=== PATIENT | male | born 1940 | race African-American/Black ===

== ENCOUNTER 2017-05-28 18:53 | Emergency (ER) | payer MEDICARE, OTHER ==
[2017-05-28 19:00] VITALS: BP 128/70
--- NOTE | 2017-05-28 21:35 | ER Document Report ---
ED General - General Chief Complaint: Cold Symptoms Stated Complaint: RUNNY NOSE,COUGH,FEVER Time Seen by Provider: 05/28/17 21:17 Mode of Arrival: Ambulatory Information source: Patient Notes: This is a 76-year-old man with a history of CHF, hypertension who presents to the emergency room with 3 days history of cough, congestion, runny nose, fever and chills. TRAVEL OUTSIDE OF THE [place] IN LAST 30 DAYS: No - HPI Onset: Yesterday Onset/Duration: Gradual Quality of pain: No pain Severity: None Pain Level: Denies Associated symptoms: Nonproductive cough, Fever Exacerbated by: Denies Relieved by: Denies Similar symptoms previously: No Recently seen / treated by doctor: No - Related Data Allergies/Adverse Reactions: Shellfish * Allergy (Intermediate, Verified 05/28/17 18:55) Facial swelling Past Medical History - General Information source: Patient - Social History Smoking Status: Never Smoker Cigarette use (# per day): No Chew tobacco use (# tins/day): No Frequency of alcohol use: None Drug Abuse: None Lives with: Family Family History: None Patient has suicidal ideation: No Patient has homicidal ideation: No - Past Medical History Cardiac Medical History: Reports: Hx Atrial Fibrillation, Hx DVT, Hx Hypertension Denies: Hx Heart Attack Pulmonary Medical History: Reports: Hx Pneumonia Denies: Hx Asthma Neurological Medical History: Denies: Hx Cerebrovascular Accident, Hx Seizures Renal/ Medical History: Reports: Hx Benign Prostatic Hyperplasia. Denies: Hx Peritoneal Dialysis GI Medical History: Reports: Hx Gastroesophageal Reflux Disease. Denies: Hx Hepatitis, Hx Hiatal Hernia, Hx Ulcer Psychiatric Medical History: Denies: Hx Depression Infectious Medical History: Denies: Hx Hepatitis Past Surgical History: Reports: Hx Orthopedic Surgery. Denies: Hx Open Heart Surgery, Hx Pacemaker - Immunizations Hx Diphtheria, Pertussis, Tetanus Vaccination: No Review of Systems - Review of Systems Constitutional: Chills, Fever EENT: No symptoms reported Cardiovascular: No symptoms reported Respiratory: See HPI Gastrointestinal: No symptoms reported Genitourinary: No symptoms reported Male Genitourinary: No symptoms reported Musculoskeletal: No symptoms reported Skin: No symptoms reported Hematologic/Lymphatic: No symptoms reported Neurological/Psychological: No symptoms reported Physical Exam - Vital signs Vitals: Temp Pulse Resp BP Pulse Ox 98.3 F 92 16 128/70 H 96 05/28/17 18:59 05/28/17 18:59 05/28/17 18:59 05/28/17 18:59 05/28/17 18:59 Notes: Physical exam: GENERAL: 76-year-old man, well-appearing, no acute distress. HEAD: Atraumatic, normocephalic. EYES: Pupils equal round and reactive to light, extraocular movements intact, sclera anicteric, conjunctiva are normal. ENT: TMs normal, nares patent, oropharynx clear without exudates. Moist mucous membranes. NECK: Normal range of motion, supple without obvious mass or JVD. LUNGS: Breath sounds clear to auscultation bilaterally and equal. No wheezes rales or rhonchi. HEART: Regular rate and rhythm without murmurs, rubs or gallops. ABDOMEN: Soft, normoactive bowel sounds. No tenderness to palpation. No guarding, no rebound. No masses appreciated. EXTREMITIES: Normal range of motion, no pitting or edema. No clubbing or cyanosis. NEUROLOGICAL: Cranial nerves II through XII grossly intact. Normal speech, moving all extremities. PSYCH: Normal mood, normal affect. SKIN: Warm, Dry, normal turgor, no rashes or lesions noted. Course - Vital Signs Vital signs: Temp Pulse Resp BP Pulse Ox 98.3 F 92 16 128/70 H 96 05/28/17 18:59 05/28/17 18:59 05/28/17 18:59 05/28/17 18:59 05/28/17 18:59 - Diagnostic Test Radiology reviewed: Image reviewed, Reports reviewed - Chest x-ray shows no infiltrates or effusions. - EKG Interpretation by Me Rate: Normal Rhythm: A.Fib - EKG shows atrial fibrillation with a ventricular rate of 59, PVC , no acute change from previous Discharge - Discharge Clinical Impression: Influenza Condition: Stable Disposition: HOME, SELF-CARE Additional Instructions: As we discussed, your tests did show that you have influenza A. You were started on a medicine in the emergency room for this. I want you to continue this for the next 5 days. Your next dose of Tamiflu is after breakfast in the morning. And this medicine is taken twice daily. Your chest x-ray did not show any evidence of pneumonia. Your EKG looked the same as your baseline EKG which is good. The test of sugar came back normal. Follow-up with Dr. Dacosta. Return to the emergency room for any worsening shortness of breath, cough or any concerns or getting worse. Prescriptions: Oseltamivir Phosphate [Tamiflu 75 mg Capsule] 75 mg PO BID #9 capsule Referrals: ASHLEY DACOSTA MD [Primary Care Provider] - Follow up as needed
[2017-05-28 22:12] LABS: A TYPE INFLUENZA AG POSITIVE (NEGATIVE); B INFLUENZA AG NEGATIVE (NEGATIVE)
--- NOTE | 2017-05-28 22:35 | RADIOLOGY REPORT (SQ) ---
EXAM DESCRIPTION: CHEST PA/LAT COMPLETED DATE/TIME: 05/28/2017 10:12 pm REASON FOR STUDY: cough, fever COMPARISON: 04/09/2014. TECHNIQUE: Frontal and lateral radiographic views of the chest acquired. NUMBER OF VIEWS: Two view. LIMITATIONS: None. FINDINGS: LUNGS AND PLEURA: Chronic pleuroparenchymal changes, particularly on the right. Evidence of previous rib resections with pleural thickening which is nonprogressive. Mild additional pleural thickening on the left. No acute superimposed infiltrate or suspicious opacity. MEDIASTINUM AND HILAR STRUCTURES: No masses or contour abnormalities. HEART AND VASCULAR STRUCTURES: Heart normal size. No evidence for failure. BONES: No acute findings. HARDWARE: None in the chest. OTHER: No other significant finding. IMPRESSION: Chronic lung changes. No acute cardiopulmonary disease. TECHNICAL DOCUMENTATION: JOB ID: [id number] [employer]- All Rights Reserved
[2017-05-28] MEDS ORDERED: OSELTAMIVIR PHOSPHATE 75 MG CAPSULE PO ONE (23:10)
--- NOTE | 2017-05-29 08:08 | EKG REPORT ---
SEVERITY:- ABNORMAL ECG - ATRIAL FIBRILLATION, V-RATE 48-79 VENTRICULAR PREMATURE COMPLEX : Confirmed by: Troy Kenney MD 29-May-2017 08:07:43
== END 2017-05-28 23:48 | disposition home or self-care (01) ==
LOC: ER 18:53
DX: J10.1 Influenza due to other identified influenza virus with other respiratory manifestations (principal); I48.91 Unspecified atrial fibrillation; I10 Essential (primary) hypertension; Z86.718 Personal history of other venous thrombosis and embolism; Z91.013 Allergy to seafood
CPT/HCPCS: 93005; 99284; 82962; 87804; 71046; 93010; A9270; J3490

== ENCOUNTER 2017-09-21 12:50 | Inpatient (IN) | payer MEDICARE, OTHER, MEDICAID ==
[2017-09-21] MEDS ORDERED: ASPIRIN 81 MG TABLET, CHEWABLE PO ONE (13:03)
[2017-09-21] MEDS ORDERED: RIVAROXABAN 15 MG TABLET PO ONE (13:22)
--- NOTE | 2017-09-21 13:29 | ER Document Report ---
ED General - General Chief Complaint: Chest Pain Stated Complaint: CHEST PAIN Time Seen by Provider: 09/21/17 13:21 Mode of Arrival: Stretcher Information source: Patient Notes: Chief complaint: Chest pain since last Saturday that is 4 days ago. This morning had problem walking. History of complain:( obtained from-patient) 77 years old male with a history of atrial fibrillation, not on any anticoagulant, had chest pain since last Saturday that is 5 days ago, pain is on and off last for up a few minutes and then disappears. Today this morning he had problem walking staggering. Lasted for a while and then resolved. Therefore presented to the ED Currently denies any chest pain palpitation or diaphoresis. Denies any left arm numbness tingling sensation. Denies any focal weakness numbness tingling sensation. Denies any headache. Onset: As above last few days Severity: Mild to moderate Quality: Dull achy pain Context: Not related to anything Exacerbating factor and relieving factors: None REVIEW OF SYSTEMS: CONSTITUTIONAL : Denies fever, chills, or sweats. Denies recent illness. EENT: Denies eye, ear, throat, or mouth pain or symptoms. Denies nasal or sinus congestion or discharge. Denies throat, tongue, or mouth swelling or difficulty swallowing. CARDIOVASCULAR: Denies chest pain. Denies palpitations or racing or irregular heart beat. Denies ankle edema. RESPIRATORY: Denies cough, cold, or chest congestion. Denies shortness of breath, difficulty breathing, or wheezing. GASTROINTESTINAL: Denies distention. Denies nausea, vomiting, or diarrhea. Denies blood in vomitus, stools, or per rectum. Denies black, tarry stools. Denies constipation. GENITOURINARY: Denies difficulty urinating, painful urination, burning, frequency, blood in urine, or discharge. FEMALE GENITOURINARY: Denies vaginal bleeding, heavy or abnormal periods, irregular periods. Denies vaginal discharge or odor. MUSCULOSKELETAL: Denies back or neck pain or stiffness. Denies joint pain or swelling. SKIN: Denies rash, lesions or sores. HEMATOLOGIC : Denies easy bruising or bleeding. LYMPHATIC: Denies swollen, enlarged glands. NEUROLOGICAL: Denies confusion or altered mental status. Denies passing out or loss of consciousness. Denies dizziness or lightheadedness. Denies headache. Denies weakness or paralysis or loss of use of either side. Denies problems with gait or speech. Denies sensory loss, numbness, or tingling. Denies seizures. PSYCHIATRIC: Denies anxiety or stress. Denies depression, suicidal ideation, or homicidal ideation. ALL OTHER SYSTEMS REVIEWED AND NEGATIVE. PHYSICAL EXAMINATION: GENERAL: Well-appearing, well-nourished and in no acute distress. HEAD: Atraumatic, normocephalic. EYES: Pupils equal round and reactive to light, extraocular movements intact, conjunctiva are normal. ENT: Nares patent, oropharynx clear without exudates. Moist mucous membranes. NECK: Normal range of motion, supple without lymphadenopathy LUNGS: Breath sounds clear to auscultation bilaterally and equal. No wheezes rales or rhonchi. HEART: Regular rate and rhythm without murmurs ABDOMEN: Soft, nontender, nondistended abdomen. No guarding, no rebound. No masses appreciated. Examination of genitals-deferred Musculoskeletal: Normal range of motion, no pitting or edema. No cyanosis. NEUROLOGICAL: Cranial nerves grossly intact. Normal speech, normal gait. Normal sensory, motor exams. No pronator drift no focal neurological deficit noted. PSYCH: Normal mood, normal affect. SKIN: Warm, Dry, normal turgor, no rashes or lesions noted. Dictation was performed using [employer] voice recognition software TRAVEL OUTSIDE OF THE [place] IN LAST 30 DAYS: No - HPI Patient complains to provider of: Dictated Onset: Just prior to arrival Associated symptoms: denies: None, Allergy/hay fever, Body/muscle aches, Chest pain, Chills, Nonproductive cough, Productive cough, Diarrhea, Drooling, Earache , Fever, Headache, Hoarseness, Hurts to breath, Leg swelling, Nausea, Vomiting, Rhinnorhea, Sinus pain/drainage, Shortness of breath, Slow to respond, Sore throat, Sweating, Weakness, Other - Related Data Allergies/Adverse Reactions: Shellfish * Allergy (Intermediate, Verified 05/28/17 18:55) Facial swelling Past Medical History - General Information source: Patient - Social History Smoking Status: Unknown if Ever Smoked Cigarette use (# per day): No Chew tobacco use (# tins/day): No Smoking Education Provided: No Frequency of alcohol use: None Lives with: Family Family History: None, Reviewed & Not Pertinent - Bacitracin - Past Medical History Cardiac Medical History: Reports: Hx Atrial Fibrillation, Hx DVT, Hx Hypertension Denies: Hx Heart Attack Pulmonary Medical History: Reports: Hx Pneumonia Denies: Hx Asthma Neurological Medical History: Denies: Hx Cerebrovascular Accident, Hx Seizures Renal/ Medical History: Reports: Hx Benign Prostatic Hyperplasia. Denies: Hx Peritoneal Dialysis GI Medical History: Reports: Hx Gastroesophageal Reflux Disease. Denies: Hx Hepatitis, Hx Hiatal Hernia, Hx Ulcer Psychiatric Medical History: Denies: Hx Depression Infectious Medical History: Denies: Hx Hepatitis Past Surgical History: Reports: Hx Orthopedic Surgery. Denies: Hx Open Heart Surgery, Hx Pacemaker - Immunizations Hx Diphtheria, Pertussis, Tetanus Vaccination: No Review of Systems - Review of Systems Notes: Dictated Physical Exam - Vital signs Vitals: Pulse Ox 95 09/21/17 13:03 - Notes Notes: Dictated Course - Re-evaluation Re-evalutation: 09/21/17 15:51 Case was discussed with the primary care physician and currently being admitted - Vital Signs Vital signs: Temp Pulse Resp BP Pulse Ox 97.2 F 59 L 18 136/65 H 100 09/22/17 07:15 09/22/17 07:15 09/22/17 07:15 09/22/17 07:15 09/22/17 07:15 - Laboratory Result Diagrams: 09/22/17 04:10 09/22/17 04:10 Laboratory results interpreted by me: 09/21/17 09/21/17 09/21/17 13:03 13:13 13:13 WBC 10.9 H RBC 5.79 H RDW 14.6 H Seg Neutrophils % 78.4 H Absolute Neutrophils 8.6 H Calcium 10.9 H NT-Pro-B Natriuret Pep 1050 H - Diagnostic Test Radiology reviewed: Reports reviewed - Chronic pleural thickening Discharge - Discharge Clinical Impression: Chest pain, rule out acute myocardial infarction, Acute electrocardiogram changes Atrial fibrillation Qualifiers: Atrial fibrillation type: chronic Qualified Code(s): I48.2 - Chronic atrial fibrillation Condition: Fair Disposition: ADMITTED INPATIENT Admitting Provider: Guido Unit Admitted: [facility]
[2017-09-21 14:00] LABS: ALANINE AMINOTRANSFERASE 24 U/L (21-72); ALBUMIN 4.3 g/dL (3.5-5.0); ALKALINE PHOSPHATASE 67 U/L (38-126); ANION GAP 12 (5-19); ASPARTATE AMINO TRANSFERASE 23 U/L (17-59); BILIRUBIN,DIRECT 0.4 mg/dL (0.0-0.4); BILIRUBIN,TOTAL 0.9 mg/dL (0.2-1.3); BLOOD UREA NITROGEN 17 mg/dL (7-20); CALCIUM 10.9 mg/dL (8.4-10.2); CARBON DIOXIDE 27 mmol/L (22-30); CHLORIDE 102 mmol/L (98-107); GLUCOSE 94 mg/dL (75-110); POTASSIUM 4.3 mmol/L (3.6-5.0); SODIUM 140.8 mmol/L (137-145); TOTAL PROTEIN 7.4 g/dL (6.3-8.2)
[2017-09-21 14:14] LABS: TROPONIN I 0.013 ng/mL
[2017-09-21 14:18] LABS: ABSOLUTE BASOPHILS # (AUTO) 0.1 10^3/uL (0.0-0.2); ABSOLUTE EOSINOPHILS # (AUTO) 0.1 10^3/uL (0.0-0.6); ABSOLUTE LYMPHOCYTES (AUTO) 1.5 10^3/uL (0.5-4.7); ABSOLUTE MONOCYTES (AUTO) 0.8 10^3/uL (0.1-1.4); ABSOLUTE NEUT (AUTO) 8.6 10^3/uL (1.7-8.2); BASOPHILS % (AUTO) 0.6 % (0-2); EOSINOPHILS % (AUTO) 0.5 % (0-6); HEMATOCRIT 50.6 % (37.9-51.0); HEMOGLOBIN 16.8 g/dL (13.5-17.0); LYMPHOCYTES % (AUTO) 13.3 % (13-45); MEAN CORPUSCULAR HGB CONC 33.2 g/dL (32.0-36.0); MEAN CORPUSCULAR VOLUME 87 fl (80-97); MONOCYTES % (AUTO) 7.2 % (3-13); PLATELET COUNT 218 10^3/uL (150-450); RED BLOOD COUNT 5.79 10^6/uL (4.35-5.55); RED CELL DISTRIBUTION WIDTH 14.6 % (11.5-14.0); SEGMENTED NEUTROPHILS % (AUTO) 78.4 % (42-78); TOTAL CELLS COUNTED % (AUTO) 100 %; WHITE BLOOD COUNT 10.9 10^3/uL (4.0-10.5)
--- NOTE | 2017-09-21 14:27 | RADIOLOGY REPORT (SQ) ---
EXAM DESCRIPTION: CHEST SINGLE VIEW COMPLETED DATE/TIME: 09/21/2017 2:05 pm REASON FOR STUDY: CP COMPARISON: None. EXAM PARAMETERS: NUMBER OF VIEWS: One view. TECHNIQUE: Single frontal radiographic view of the chest acquired. RADIATION DOSE: NA LIMITATIONS: None. FINDINGS: LUNGS AND PLEURA: Chronic bibasilar scarring and pleural thickening. MEDIASTINUM AND HILAR STRUCTURES: No masses. Contour normal. HEART AND VASCULAR STRUCTURES: The heart is normal in size with aortic atherosclerosis. . BONES: Previous resection of right posterior 5th and 7th ribs. HARDWARE: None in the chest. OTHER: Chest leads in place. IMPRESSION: Chronic bibasilar scarring and pleural thickening. Post thoracotomy changes on the righ t. . TECHNICAL DOCUMENTATION: JOB ID: [id number] 2010 [employer]- All Rights Reserved Reading location - IP/workstation name: [email or web address]
--- NOTE | 2017-09-21 16:35 | EKG REPORT ---
SEVERITY:- ABNORMAL ECG - ATRIAL FIBRILLATION, V-RATE 62-101 PROBABLE LVH WITH SECONDARY REPOL ABNRM : Confirmed by: Troy Kenney MD 21-Sep-2017 16:33:40
[2017-09-21] MEDS ORDERED: FUROSEMIDE INJ/PF 20 MG/2 ML SDV IV ONE (20:40)
--- NOTE | 2017-09-21 20:40 | PDOC H&P ---
History of Present Illness Admission Date/PCP: 09/21/17 16:09 [facility] Patient complains of: Chest pain, Difficulty with breathing History of Present Illness: ARELIS Charlee BAUTISTA is a 77 year old male known to my practice presented to the ED with 5 days history of intermittent chest pain and exertional shortness of breath that lasted for couple of minutes and resolved with rest. He denied any palpitation, diaphoresis or radiation of pain into his neck or upper extremities. There was not numbness or tingling. He reported compliance with his medication but claimed that his symptoms started after recent addition of Duloxetine to his chronic pain management regimen. He denied any focal weakness but reported short period of staggering gait earlier today. He denied any headache or dizziness. His initial evaluation in the ED was remarkable for elevated NT-Pro BNP and Atrial fibrillation on his EKG. Patient has history of Atrial Fibrillation and has been mainly on Aspirin therapy due to episode of GI bleed while on Coumadin and Xarelto in the past. He denied any recurrent GI bleed for couple of years. 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 Past Medical History Cardiac Medical History: Reports: Atrial Fibrillation, DVT, Hypertension Denies: Myocardial Infarction Pulmonary Medical History: Reports: Pneumonia Denies: Asthma Neurological Medical History: Denies: Seizures GI Medical History: Reports: Gastroesophageal Reflux Disease Denies: Hepatitis, Hiatal Hernia Psychiatric Medical History: Denies: Depression Hematology: Denies: Anemia, Sickle Cell Disease Past Surgical History Past Surgical History: Reports: Orthopedic Surgery Denies: Pacemaker Social History Lives with: Family Smoking Status: Unknown if Ever Smoked Frequency of Alcohol Use: None Hx Recreational Drug Use: No Drugs: None Hx Prescription Drug Abuse: No - Advance Directive Resuscitation Status: Full Code Family History Family History: None, Reviewed & Not Pertinent - Bacitracin Parental Family History Reviewed: Yes Children Family History Reviewed: Yes Sibling(s) Family History Reviewed.: Yes Medication/Allergy Home Medications: Digoxin [Lanoxin 0.25 mg Tablet] 0.25 mg PO DAILY 03/06/12 Diltiazem HCl [Cardizem Cd] 240 mg PO DAILY 03/06/12 Finasteride [Proscar 5 mg Tablet] 5 mg PO DAILY 11/08/12 Gabapentin 600 mg PO Q8H 02/01/14 Tamsulosin HCl [Flomax 0.4 mg Cap.sr] 0.4 mg PO PCSUPPER #30 cap.sr.24h Aspirin [Aspirin 81 mg Chewable Tablet] 1 tab PO DAILY 09/21/17 Duloxetine HCl 60 mg PO DAILY 09/21/17 Lisinopril 10 mg PO DAILY 09/21/17 Allergies/Adverse Reactions: Shellfish * Allergy (Intermediate, Verified 05/28/17 18:55) Facial swelling Review of Systems Constitutional: ABSENT: chills, fever(s), headache(s), weight gain, weight loss Eyes: ABSENT: visual disturbances Ears: ABSENT: hearing changes Nose, Mouth, and Throat: ABSENT: as per HPI, headache(s), mouth pain, sore throat, vertigo, other Cardiovascular: PRESENT: chest pain, dyspnea on exertion. ABSENT: as per HPI, edema, orthropnea, palpitations, other Respiratory: PRESENT: dyspnea. ABSENT: as per HPI, cough, hemoptysis, sputum, other Gastrointestinal: ABSENT: abdominal pain, constipation, diarrhea, hematemesis, hematochezia, nausea, vomiting Genitourinary: ABSENT: dysuria, hematuria Musculoskeletal: PRESENT: deformity - related to joint involvment with arthritis Neurological: ABSENT: abnormal gait, abnormal speech, confusion, dizziness, focal weakness, syncope Psychiatric: ABSENT: anxiety, depression, homidical ideation, suicidal ideation Endocrine: ABSENT: cold intolerance, heat intolerance, polydipsia, polyuria Hematologic/Lymphatic: ABSENT: easy bleeding, easy bruising, lymphadenopathy Allergic/Immunologic: ABSENT: seasonal rhinorrhea Physical Exam Vital Signs: Temp Pulse Resp BP Pulse Ox 97.5 F 69 19 124/71 100 09/21/17 18:12 09/21/17 18:37 09/21/17 18:12 09/21/17 18:12 09/21/17 18:12 Intake & Output 09/20/17 09/21/17 09/22/17 06:59 06:59 06:59 Weight 83.4 kg General appearance: PRESENT: no acute distress, well-developed, well-nourished Head exam: PRESENT: atraumatic, normocephalic Eye exam: PRESENT: conjunctiva pink, EOMI, PERRLA. ABSENT: scleral icterus Mouth exam: PRESENT: moist Neck exam: PRESENT: full ROM. ABSENT: carotid bruit, JVD, lymphadenopathy, thyromegaly Respiratory exam: PRESENT: decreased breath sounds - lower lung zone Cardiovascular exam: PRESENT: RRR. ABSENT: diastolic murmur, rubs, systolic murmur Pulses: PRESENT: +1 pedal pulses bilateral Vascular exam: PRESENT: normal capillary refill. ABSENT: pallor GI/Abdominal exam: PRESENT: normal bowel sounds, soft. ABSENT: distended, guarding, mass, organolmegaly, rebound, tenderness Rectal exam: PRESENT: deferred Extremities exam: ABSENT: pedal edema Musculoskeletal exam: PRESENT: ambulatory, deformity - related to his prior surgery on right leg and joint involvement with arthritis Neurological exam: PRESENT: alert, awake, oriented to person, oriented to place , oriented to time, oriented to situation, CN II-XII grossly intact. ABSENT: motor sensory deficit Psychiatric exam: PRESENT: appropriate affect, normal mood. ABSENT: homicidal ideation, suicidal ideation Skin exam: PRESENT: dry, intact, warm. ABSENT: cyanosis, rash Results Laboratory Results: 09/21/17 17:13 Troponin I 0.016 Impressions: Chest X-Ray 09/21/17 13:03 IMPRESSION: Chronic bibasilar scarring and pleural thickening. Post thoracotomy changes on the right. . Assessment & Plan - Time Time Spent: 50 to 70 Minutes Medications reviewed and adjusted accordingly: Yes Anticipated discharge: Home Within: Other - Inpatient Certification Based on my medical assessment, after consideration of the patient's comorbidities, presenting symptoms, or acuity I expect that the services needed warrant INPATIENT care.: Yes I certify that my determination is in accordance with my understanding of Medicare's requirements for reasonable and necessary INPATIENT services [42 CFR 412.3e].: Yes Medical Necessity: Need Close Monitoring Due to Risk of Patient Decompensation, Need For Continuous Telemetry Monitoring, Risk of Complication if Not Cared For in Hospital Post Hospital Care: D/C Hvac/R Instructor Documentation - Plan Summary Plan Summary: See admitting attending physician orders.
[2017-09-21] MEDS: GABAPENTIN 300 MG CAPSULE PO SCH (21:05)
[2017-09-21 23:43] LABS: INTERNATIONAL RATION (INR) 1.54; PROTHROMBIN TIME 19.2 SEC (11.4-15.4)
[2017-09-22 00:19] LABS: CREATINE KINASE MB 3.18 ng/mL (<4.55)
[2017-09-22 00:23] LABS: TROPONIN I 0.021 ng/mL
[2017-09-22 04:50] LABS: ABSOLUTE BASOPHILS # (AUTO) 0.1 10^3/uL (0.0-0.2); ABSOLUTE EOSINOPHILS # (AUTO) 0.1 10^3/uL (0.0-0.6); ABSOLUTE LYMPHOCYTES (AUTO) 2.2 10^3/uL (0.5-4.7); ABSOLUTE MONOCYTES (AUTO) 1.3 10^3/uL (0.1-1.4); ABSOLUTE NEUT (AUTO) 8.2 10^3/uL (1.7-8.2); BASOPHILS % (AUTO) 0.7 % (0-2); EOSINOPHILS % (AUTO) 1.2 % (0-6); HEMATOCRIT 46.5 % (37.9-51.0); HEMOGLOBIN 15.5 g/dL (13.5-17.0); LYMPHOCYTES % (AUTO) 18.6 % (13-45); MEAN CORPUSCULAR HEMOGLOBIN 29.2 pg (27.0-33.4); MEAN CORPUSCULAR HGB CONC 33.3 g/dL (32.0-36.0); MEAN CORPUSCULAR VOLUME 88 fl (80-97); MONOCYTES % (AUTO) 10.8 % (3-13); PLATELET COUNT 211 10^3/uL (150-450); RED BLOOD COUNT 5.32 10^6/uL (4.35-5.55); RED CELL DISTRIBUTION WIDTH 14.1 % (11.5-14.0); SEGMENTED NEUTROPHILS % (AUTO) 68.7 % (42-78); TOTAL CELLS COUNTED % (AUTO) 100 %
[2017-09-22 05:16] LABS: CREATINE KINASE MB 2.96 ng/mL (<4.55); TROPONIN I 0.024 ng/mL
[2017-09-22] MEDS: GABAPENTIN 300 MG CAPSULE PO SCH ×3 (05:35→22:42)
[2017-09-22] MEDS: LANSOPRAZOLE 30 MG TAB.RAP.DR PO SCH (05:35)
[2017-09-22 07:46] LABS: ALANINE AMINOTRANSFERASE 22 U/L (21-72); ALBUMIN 3.8 g/dL (3.5-5.0); ALKALINE PHOSPHATASE 57 U/L (38-126); ANION GAP 14 (5-19); ASPARTATE AMINO TRANSFERASE 25 U/L (17-59); BILIRUBIN,DIRECT 0.4 mg/dL (0.0-0.4); BILIRUBIN,TOTAL 0.4 mg/dL (0.2-1.3); BLOOD UREA NITROGEN 21 mg/dL (7-20); CALCIUM 10.5 mg/dL (8.4-10.2); CARBON DIOXIDE 27 mmol/L (22-30); CHLORIDE 105 mmol/L (98-107); CHOLESTEROL 173.98 mg/dL (0-200); CREATINE KINASE 49 U/L (55-170); GLUCOSE 87 mg/dL (75-110); POTASSIUM 3.9 mmol/L (3.6-5.0); SODIUM 145.6 mmol/L (137-145); TOTAL PROTEIN 6.9 g/dL (6.3-8.2); TRIGLYCERIDES 86 mg/dL (<150)
[2017-09-22 08:02] LABS: DIRECT LDL 121 mg/dL (<100)
[2017-09-22] MEDS: FINASTERIDE 5 MG TABLET PO SCH (09:19)
[2017-09-22] MEDS: LISINOPRIL 10 MG TABLET PO SCH (09:19)
[2017-09-22] MEDS: DIGOXIN 0.25 MG TABLET PO SCH (09:19)
[2017-09-22] MEDS ORDERED: DILTIAZEM HCL 240 MG CAPSULE.CR PO SCH (10:00)
[2017-09-22] MEDS ORDERED: FUROSEMIDE INJ/PF 20 MG/2 ML SDV IV SCH (10:00)
[2017-09-22 11:04] LABS: CREATINE KINASE MB 2.58 ng/mL (<4.55); TROPONIN I 0.016 ng/mL
[2017-09-22] MEDS: TAMSULOSIN HCL 0.4 MG CAP.SR.24H PO SCH (16:43)
[2017-09-22] MEDS: RIVAROXABAN 10 MG TABLET PO SCH (16:43)
--- NOTE | 2017-09-22 18:51 | PDOC PROGRESS REPORT ---
Subjective Progress Note for:: 09/22/17 Subjective:: Patient reported episode of postural dizziness. Nursing staff reported associated bradycardia. No chest pain. No nausea, vomiting or abdominal pain. No abnormal bleeding. Reason For Visit: CHEST PAIN,R/O ACS,ACUTE SYSTOLIC CHF, Physical Exam Vital Signs: Temp Pulse Resp BP Pulse Ox 97.5 F 52 L 17 122/60 99 09/22/17 15:14 09/22/17 15:14 09/22/17 15:14 09/22/17 15:14 09/22/17 15:14 Intake & Output 09/21/17 09/22/17 09/23/17 06:59 06:59 06:59 Intake Total 155 446 Output Total 250 200 Balance -95 246 Weight 83.9 kg General appearance: PRESENT: no acute distress, well-developed, well-nourished Head exam: PRESENT: atraumatic, normocephalic Mouth exam: PRESENT: moist Neck exam: PRESENT: full ROM. ABSENT: carotid bruit, JVD, lymphadenopathy, thyromegaly Respiratory exam: PRESENT: clear to auscultation etta Cardiovascular exam: PRESENT: irregular rhythm, +S1, +S2. ABSENT: diastolic murmur, systolic murmur Vascular exam: PRESENT: normal capillary refill. ABSENT: pallor GI/Abdominal exam: PRESENT: normal bowel sounds, soft. ABSENT: distended, guarding, mass, organolmegaly, rebound, tenderness Extremities exam: ABSENT: pedal edema Musculoskeletal exam: PRESENT: deformity - related to multiple joints involvement with arthritis Neurological exam: PRESENT: alert, awake, oriented to person, oriented to place , oriented to time, oriented to situation, CN II-XII grossly intact. ABSENT: motor sensory deficit Psychiatric exam: PRESENT: appropriate affect, normal mood. ABSENT: homicidal ideation, suicidal ideation Skin exam: PRESENT: dry, warm Results Laboratory Results: 09/22/17 04:10 09/22/17 04:10 09/22/17 09/22/17 04:10 04:10 WBC 12.0 H RBC 5.32 Hgb 15.5 Hct 46.5 MCV 88 MCH 29.2 MCHC 33.3 RDW 14.1 H Plt Count 211 Seg Neutrophils % 68.7 Lymphocytes % 18.6 Monocytes % 10.8 Eosinophils % 1.2 Basophils % 0.7 Absolute Neutrophils 8.2 Absolute Lymphocytes 2.2 Absolute Monocytes 1.3 Absolute Eosinophils 0.1 Absolute Basophils 0.1 Sodium 145.6 H Potassium 3.9 Chloride 105 Carbon Dioxide 27 Anion Gap 14 BUN 21 H Creatinine 1.00 Est GFR ( Amer) > 60 Est GFR (Non-Af Amer) > 60 Glucose 87 Calcium 10.5 H Total Bilirubin 0.4 AST 25 ALT 22 Alkaline Phosphatase 57 Total Protein 6.9 Albumin 3.8 Triglycerides 86 Cholesterol 173.98 LDL Cholesterol Direct 121 H VLDL Cholesterol 17.0 HDL Cholesterol 33 L 09/21/17 09/21/17 09/21/17 17:13 17:13 17:13 Creatine Kinase 42 L CK-MB (CK-2) 2.33 Troponin I 0.016 Cancelled 09/21/17 09/21/17 09/22/17 23:20 23:20 04:10 Creatine Kinase 43 L 48 L CK-MB (CK-2) 3.18 Troponin I 0.021 09/22/17 09/22/17 09/22/17 04:10 04:10 10:26 Creatine Kinase 49 L CK-MB (CK-2) 2.96 2.58 Troponin I 0.024 0.016 Impressions: Chest X-Ray 09/21/17 13:03 IMPRESSION: Chronic bibasilar scarring and pleural thickening. Post thoracotomy changes on the right. . Assessment & Plan - Diagnosis (5) HLD (hyperlipidemia) Qualifiers: Hyperlipidemia type: pure hypercholesterolemia Qualified Code(s): E78.00 - Pure hypercholesterolemia, unspecified; E78.0 - Pure hypercholesterolemia Is this a current diagnosis for this admission?: Yes Plan: See attending physician orders. - Time Time Spent with patient: 25-34 minutes Medications reviewed and adjusted accordingly: Yes Anticipated discharge: Home with Homehealth Within: Other - Inpatient Certification Based on my medical assessment, after consideration of the patient's comorbidities, presenting symptoms, or acuity I expect that the services needed warrant INPATIENT care.: Yes I certify that my determination is in accordance with my understanding of Medicare's requirements for reasonable and necessary INPATIENT services [42 CFR 412.3e].: Yes Medical Necessity: Need Close Monitoring Due to Risk of Patient Decompensation, Need For Continuous Telemetry Monitoring, Risk of Complication if Not Cared For in Hospital 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 Decrease Diltiazem to 180 mg p.o daily. Continue all other current medication management. Follow up on pending echocardiogram.
[2017-09-22] MEDS: SIMVASTATIN 10 MG TABLET PO SCH (22:42)
[2017-09-23] MEDS: LANSOPRAZOLE 30 MG TAB.RAP.DR PO SCH (05:39)
[2017-09-23] MEDS: GABAPENTIN 300 MG CAPSULE PO SCH ×3 (05:39→21:50)
[2017-09-23] MEDS: DILTIAZEM HCL 180 MG CAPSULE.CR PO SCH (09:27)
[2017-09-23] MEDS: DIGOXIN 0.25 MG TABLET PO SCH (09:33)
[2017-09-23] MEDS: FINASTERIDE 5 MG TABLET PO SCH (09:33)
[2017-09-23] MEDS: LISINOPRIL 10 MG TABLET PO SCH (09:34)
[2017-09-23] MEDS: RIVAROXABAN 10 MG TABLET PO SCH (17:01)
[2017-09-23] MEDS: TAMSULOSIN HCL 0.4 MG CAP.SR.24H PO SCH (17:01)
--- NOTE | 2017-09-23 17:32 | PDOC PROGRESS REPORT ---
Subjective Progress Note for:: 09/23/17 Subjective:: No chest pain or difficulty with breathing. No nausea, vomiting or abdominal pain. No abnormal bleeding. Nursing staff reported decreased urine output so far today. Reason For Visit: CHEST PAIN,R/O ACS,ACUTE SYSTOLIC CHF, Physical Exam Vital Signs: Temp Pulse Resp BP Pulse Ox 97.4 F 83 18 103/49 L 98 09/23/17 11:16 09/23/17 14:00 09/23/17 11:16 09/23/17 11:16 09/23/17 11:16 Intake & Output 09/22/17 09/23/17 09/24/17 06:59 06:59 06:59 Intake Total 155 866 Output Total 250 200 Balance -95 666 Weight 83.9 kg 84.6 kg Physical Exam: General appearance: PRESENT: no acute distress, well-developed, well-nourished Head exam: PRESENT: atraumatic, normocephalic Mouth exam: PRESENT: moist Neck exam: PRESENT: full ROM. ABSENT: carotid bruit, JVD, lymphadenopathy, thyromegaly Respiratory exam: PRESENT: clear to auscultation etta Cardiovascular exam: PRESENT: irregular rhythm, +S1, +S2. ABSENT: diastolic murmur, systolic murmur Vascular exam: PRESENT: normal capillary refill. ABSENT: pallor GI/Abdominal exam: PRESENT: normal bowel sounds, soft. ABSENT: distended, guarding, mass, organomegaly, rebound, tenderness Extremities exam: ABSENT: pedal edema Musculoskeletal exam: PRESENT: deformity - related to multiple joints involvement with arthritis Neurological exam: PRESENT: alert, awake, oriented to person, oriented to place , oriented to time, oriented to situation, CN II-XII grossly intact. ABSENT: motor sensory deficit Psychiatric exam: PRESENT: appropriate affect, normal mood. ABSENT: homicidal ideation, suicidal ideation Skin exam: PRESENT: dry, warm Results Laboratory Results: 09/22/17 04:10 09/22/17 04:10 09/21/17 09/21/17 09/21/17 17:13 17:13 17:13 Creatine Kinase 42 L CK-MB (CK-2) 2.33 Troponin I 0.016 Cancelled 09/21/17 09/21/17 09/22/17 23:20 23:20 04:10 Creatine Kinase 43 L 48 L CK-MB (CK-2) 3.18 Troponin I 0.021 09/22/17 09/22/17 09/22/17 04:10 04:10 10:26 Creatine Kinase 49 L CK-MB (CK-2) 2.96 2.58 Troponin I 0.024 0.016 Impressions: Chest X-Ray 09/21/17 13:03 IMPRESSION: Chronic bibasilar scarring and pleural thickening. Post thoracotomy changes on the right. . Assessment & Plan - Diagnosis (5) HLD (hyperlipidemia) Qualifiers: Hyperlipidemia type: pure hypercholesterolemia Qualified Code(s): E78.00 - Pure hypercholesterolemia, unspecified; E78.0 - Pure hypercholesterolemia Is this a current diagnosis for this admission?: Yes - Time Time Spent with patient: 25-34 minutes Medications reviewed and adjusted accordingly: Yes Anticipated discharge: Home Within: Other - Inpatient Certification Based on my medical assessment, after consideration of the patient's comorbidities, presenting symptoms, or acuity I expect that the services needed warrant INPATIENT care.: Yes I certify that my determination is in accordance with my understanding of Medicare's requirements for reasonable and necessary INPATIENT services [42 CFR 412.3e].: Yes Medical Necessity: Need Close Monitoring Due to Risk of Patient Decompensation, Need For Continuous Telemetry Monitoring, Risk of Complication if Not Cared For in Hospital 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 Echocardiogram suggested LVEF > 60% with moderate diastolic dysfunction. Continue all current medication management. Follow up on official echo report. Obtain bladder scan in view of his history of BPH to r/o retention problem.
--- NOTE | 2017-09-23 18:52 | XCELERA REPORT ---
[address] [place] [address] Transthoracic Echocardiogram Report Name: ARELIS BAUTISTA Age: 77 yrs Gender: Male : 1940 Patient Status: Inpatient Patient Location: [address] [place] [address] Study Date: 09/23/2017 11:47 AM Height: 74 in Weight: 184 lb BSA: 2.1 m2 Procedure: A two-dimensional transthoracic echocardiogram with color flow and Doppler was performed. Study Quality: Good. Reason For Study: chest pain, SOB, Elevated NT-Pro BNP History: chest pain, SOB, Elevated NT-Pro BNP. Ordering Physician: ASHLEY DACOSTA Performed By: Romaine Turk Interpretation Summary The left ventricle is normal in size. There is normal left ventricular wall thickness. LV EF is > than 65% Left ventricular systolic function is normal. The left ventricular wall motion is normal. There is no thrombus. There is no ventricular septal defect visualized. The right ventricle is grossly normal size. The right ventricle is not well visualized secondary to technical limitations The left atrial size is normal. The right atrium is normal. The interatrial septum is intact with no evidence for an atrial septal defect. There is no evidence of mitral valve prolapse. There is no vegetation seen on the mitral valve. There is no mitral valve stenosis. There is no mitral regurgitation noted. There is no aortic valve stenosis There is no LVOT obstruction. No aortic regurgitation is present. There is no tricuspid stenosis. There is a moderate amount of tricuspid regurgitation RVSP is 27 to 32 mm of Hg , with RA mean of 5 to 10.Hence no significant pulmonary hypertension. There is no pulmonic valvular stenosis. There is a trace amount of pulmonic regurgitation The aortic root is normal size. The inferior vena cava appeared normal and decreased > 50% with respiration (RAP 5-10 mmHg) There is no pericardial effusion. MMode/2D Measurements & Calculations RVDd: 3.2 cm LVIDd: 3.9 cm FS: 44.6 % Ao root diam: 3.3 cm IVSd: 1.0 cm LVIDs: 2.2 cm EDV(Teich): 65.2 ml LVPWd: 0.98 cm ESV(Teich): 15.3 ml Ao root area: 8.6 cm2 EF(Teich): 76.5 % LA dimension: 4.0 cm Doppler Measurements & Calculations MV E max rosita: MV P1/2t max rosita: Ao V2 max: LV V1 max P.5 cm/sec 81.5 cm/sec 126.0 cm/sec 4.7 mmHg MV P1/2t: 77.0 msec Ao max PG: LV V1 max: 6.3 mmHg 108.3 cm/sec MVA(P1/2t): 2.9 cm2 MV dec slope: 310.0 cm/sec2 MV dec time: 0.24 sec PA V2 max: PI end-d rosita: TR max rosita: 67.1 cm/sec 69.4 cm/sec 235.4 cm/sec PA max PG: TR max P.8 mmHg 22.2 mmHg Left Ventricle The left ventricle is normal in size. There is normal left ventricular wall thickness. LV EF is > than 65%. Left ventricular systolic function is normal. LV diastolic function could not be adequately assessed due to atrial fibrilation. The left ventricular wall motion is normal. There is no thrombus. There is no ventricular septal defect visualized. Right Ventricle The right ventricle is grossly normal size. The right ventricle is not well visualized secondary to technical limitations. Atria The right atrium is normal. The left atrial size is normal. The interatrial septum is intact with no evidence for an atrial septal defect. Mitral Valve There is no evidence of mitral valve prolapse. There is no vegetation seen on the mitral valve. There is no mitral valve stenosis. There is no mitral regurgitation noted. Aortic Valve The aortic valve is trileaflet. The aortic valve opens well. There is no aortic valvular vegetation. There is no aortic valve stenosis. There is no LVOT obstruction. No aortic regurgitation is present. Tricuspid Valve There is no tricuspid stenosis. There is a moderate amount of tricuspid regurgitation. RVSP is 27 to 32 mm of Hg , with RA mean of 5 to 10.Hence no significant pulmonary hypertension. Pulmonic Valve There is no pulmonic valvular stenosis. There is a trace amount of pulmonic regurgitation. Great Vessels The aortic root is normal size. The inferior vena cava appeared normal and decreased > 50% with respiration (RAP 5-10 mmHg). Effusions There is no pericardial effusion. : ASHLEY DACOSTA > Citlali Almonte
[2017-09-23] MEDS: SIMVASTATIN 10 MG TABLET PO SCH (21:50)
[2017-09-24] MEDS: GABAPENTIN 300 MG CAPSULE PO SCH ×3 (06:18→21:35)
[2017-09-24] MEDS: LANSOPRAZOLE 30 MG TAB.RAP.DR PO SCH (06:18)
[2017-09-24] MEDS: DILTIAZEM HCL 180 MG CAPSULE.CR PO SCH (09:05)
[2017-09-24] MEDS: DIGOXIN 0.25 MG TABLET PO SCH (09:05)
[2017-09-24] MEDS: LISINOPRIL 10 MG TABLET PO SCH (09:06)
[2017-09-24] MEDS: FINASTERIDE 5 MG TABLET PO SCH (09:06)
[2017-09-24] MEDS: RIVAROXABAN 10 MG TABLET PO SCH (17:11)
[2017-09-24] MEDS: TAMSULOSIN HCL 0.4 MG CAP.SR.24H PO SCH (17:20)
--- NOTE | 2017-09-24 19:44 | PDOC PROGRESS REPORT ---
Subjective Progress Note for:: 09/24/17 Subjective:: No chest pain or difficulty with breathing. No nausea, vomiting or abdominal pain. No abnormal bleeding. Reason For Visit: CHEST PAIN,R/O ACS,ACUTE SYSTOLIC CHF, Physical Exam Vital Signs: Temp Pulse Resp BP Pulse Ox 98.3 F 68 18 112/53 L 99 09/24/17 16:58 09/24/17 16:58 09/24/17 16:58 09/24/17 16:58 09/24/17 16:58 Intake & Output 09/23/17 09/24/17 09/25/17 06:59 06:59 06:59 Intake Total 866 1028 758 Output Total 200 750 575 Balance 666 278 183 Weight 84.6 kg 85.7 kg Physical Exam: General appearance: PRESENT: no acute distress, well-developed, well-nourished Head exam: PRESENT: atraumatic, normocephalic Mouth exam: PRESENT: moist Neck exam: PRESENT: full ROM. ABSENT: carotid bruit, JVD, lymphadenopathy, thyromegaly Respiratory exam: PRESENT: clear to auscultation etta Cardiovascular exam: PRESENT: irregular rhythm, +S1, +S2. ABSENT: diastolic murmur, systolic murmur Vascular exam: ABSENT: pallor GI/Abdominal exam: PRESENT: normal bowel sounds, soft. ABSENT: distended, guarding, mass, organomegaly, rebound, tenderness Extremities exam: ABSENT: pedal edema Musculoskeletal exam: PRESENT: deformity - related to multiple joints involvement with arthritis Neurological exam: PRESENT: alert, awake, oriented to person, oriented to place , oriented to time, oriented to situation, CN II-XII grossly intact. ABSENT: motor sensory deficit Psychiatric exam: PRESENT: appropriate affect, normal mood. ABSENT: homicidal ideation, suicidal ideation Skin exam: PRESENT: dry, warm Results Laboratory Results: 09/22/17 04:10 09/22/17 04:10 09/21/17 09/21/17 09/21/17 17:13 17:13 17:13 Creatine Kinase 42 L CK-MB (CK-2) 2.33 Troponin I 0.016 Cancelled 09/21/17 09/21/17 09/22/17 23:20 23:20 04:10 Creatine Kinase 43 L 48 L CK-MB (CK-2) 3.18 Troponin I 0.021 09/22/17 09/22/17 09/22/17 04:10 04:10 10:26 Creatine Kinase 49 L CK-MB (CK-2) 2.96 2.58 Troponin I 0.024 0.016 Impressions: Chest X-Ray 09/21/17 13:03 IMPRESSION: Chronic bibasilar scarring and pleural thickening. Post thoracotomy changes on the right. . Assessment & Plan - Diagnosis (5) HLD (hyperlipidemia) Qualifiers: Hyperlipidemia type: pure hypercholesterolemia Qualified Code(s): E78.00 - Pure hypercholesterolemia, unspecified; E78.0 - Pure hypercholesterolemia Is this a current diagnosis for this admission?: Yes - Time Time Spent with patient: 25-34 minutes Medications reviewed and adjusted accordingly: Yes Anticipated discharge: Home Within: within 48 hours - Inpatient Certification Based on my medical assessment, after consideration of the patient's comorbidities, presenting symptoms, or acuity I expect that the services needed warrant INPATIENT care.: Yes I certify that my determination is in accordance with my understanding of Medicare's requirements for reasonable and necessary INPATIENT services [42 CFR 412.3e].: Yes Medical Necessity: Need Close Monitoring Due to Risk of Patient Decompensation, Need For Continuous Telemetry Monitoring, Risk of Complication if Not Cared For in Hospital 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
[2017-09-24] MEDS: SIMVASTATIN 10 MG TABLET PO SCH (21:35)
[2017-09-25] MEDS: GABAPENTIN 300 MG CAPSULE PO SCH ×2 (06:30→13:05)
[2017-09-25] MEDS: LANSOPRAZOLE 30 MG TAB.RAP.DR PO SCH (06:30)
--- NOTE | 2017-09-25 08:18 | PDOC DISCHARGE SUMMARY ---
General - Admit/Disc Date/PCP Admission Date/Primary Care Provider: 09/21/17 16:09 ASHLEY PRANEETH Discharge Date: 09/25/17 - Discharge Diagnosis (1) Chest pain, rule out acute myocardial infarction Is this a current diagnosis for this admission?: Yes Summary: resolved (2) Chronic atrial fibrillation Is this a current diagnosis for this admission?: Yes Summary: Discharge home on oral anticoagulation therapy with Xarelto. (3) Chronic pain syndrome Is this a current diagnosis for this admission?: Yes Summary: Continue on his preadmission medication except Duloxetine that was discontinued due to reported onset of his presenting symptoms after starting Duloxetine. (4) HTN (hypertension) Is this a current diagnosis for this admission?: Yes Summary: Controlled on current medication management. (5) HLD (hyperlipidemia) Is this a current diagnosis for this admission?: Yes Summary: Started on Simvastatin therapy. - Additional Information Resuscitation Status: Full Code Discharge Diet: Cardiac Discharge Activity: Activity As Tolerated Prescriptions: Diltiazem HCl [Cardizem Cd 180 mg Capsule] 180 mg PO DAILY #30 capsule.cr Rivaroxaban [Xarelto 10 mg Tablet] 20 mg PO WSUPPER #30 tablet Simvastatin [Zocor 10 mg Tablet] 10 mg PO QHS #30 tablet Home Medications: Digoxin [Lanoxin 0.25 mg Tablet] 0.25 mg PO DAILY 09/22/17 Finasteride [Proscar 5 mg Tablet] 5 mg PO DAILY 09/22/17 Gabapentin [Neurontin] 600 mg PO Q8 09/22/17 Lisinopril [Prinivil 10 mg Tablet] 10 mg PO DAILY 09/22/17 Tamsulosin HCl [Flomax 0.4 mg Cap.sr] 0.4 mg PO PCSUPPER 09/22/17 Diltiazem HCl [Cardizem Cd 180 mg Capsule] 180 mg PO DAILY #30 capsule.cr Rivaroxaban [Xarelto 10 mg Tablet] 20 mg PO WSUPPER #30 tablet 09/25/17 Simvastatin [Zocor 10 mg Tablet] 10 mg PO QHS #30 tablet 09/25/17 History of Present Illness Patient complains of: chest pain and shortness of breath History of Present Illness: ARELIS Charlee BAUTISTA is a 77 year old male known to my practice presented to the ED with 5 days history of intermittent chest pain and exertional shortness of breath that lasted for couple of minutes and resolved with rest. He denied any palpitation, diaphoresis or radiation of pain into his neck or upper extremities. There was not numbness or tingling. He reported compliance with his medication but claimed that his symptoms started after recent addition of Duloxetine to his chronic pain management regimen. He denied any focal weakness but reported short period of staggering gait earlier today. He denied any headache or dizziness. His initial evaluation in the ED was remarkable for elevated NT-Pro BNP and Atrial fibrillation on his EKG. Patient has history of Atrial Fibrillation and has been mainly on Aspirin therapy due to episode of GI bleed while on Coumadin and Xarelto in the past. He denied any recurrent GI bleed for couple of years. 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 Hospital Course Hospital Course: Patient was treated with IV Lasix and adjustment made to his Diltiazem dosage due to significant bradycardia. His shortness of breath and chest did resolved. His echocardiogram revealed satisfactory LVEF but limited on his diastolic function due to atrial fibrillation. He was restarted on Xarelto during this hospital admission. No reported abnormal bleeding. His assessed coagulation studies were within acceptable range. He is agreeable to discharge home today and he will follow up in the office as instructed upon discharge. Physical Exam Vital Signs: Temp Pulse Resp BP Pulse Ox 98.1 F 57 L 18 113/39 L 100 09/25/17 07:32 09/25/17 07:32 09/25/17 07:32 09/25/17 07:32 09/25/17 07:32 Intake & Output 09/24/17 09/25/17 09/26/17 06:59 06:59 06:59 Intake Total 1028 1225 Output Total 750 1075 Balance 278 150 Weight 85.7 kg 86.1 kg Physical Exam: General appearance: PRESENT: no acute distress, well-developed, well-nourished Head exam: PRESENT: atraumatic, normocephalic Mouth exam: PRESENT: moist Neck exam: PRESENT: full ROM. ABSENT: carotid bruit, JVD, lymphadenopathy, thyromegaly Respiratory exam: PRESENT: clear to auscultation etta Cardiovascular exam: PRESENT: irregular rhythm, +S1, +S2. ABSENT: diastolic murmur, systolic murmur Vascular exam: PRESENT: normal capillary refill. ABSENT: pallor GI/Abdominal exam: PRESENT: normal bowel sounds, soft. ABSENT: distended, guarding, mass, organomegaly, rebound, tenderness Extremities exam: ABSENT: pedal edema Musculoskeletal exam: PRESENT: deformity - related to multiple joints involvement with arthritis Neurological exam: PRESENT: alert, awake, oriented to person, oriented to place , oriented to time, oriented to situation, CN II-XII grossly intact. ABSENT: motor sensory deficit Psychiatric exam: PRESENT: appropriate affect, normal mood. ABSENT: homicidal ideation, suicidal ideation Skin exam: PRESENT: dry, warm Results Laboratory Results: 09/22/17 04:10 09/22/17 04:10 09/21/17 09/21/17 09/21/17 17:13 17:13 17:13 Creatine Kinase 42 L CK-MB (CK-2) 2.33 Troponin I 0.016 Cancelled 09/21/17 09/21/17 09/22/17 23:20 23:20 04:10 Creatine Kinase 43 L 48 L CK-MB (CK-2) 3.18 Troponin I 0.021 09/22/17 09/22/17 09/22/17 04:10 04:10 10:26 Creatine Kinase 49 L CK-MB (CK-2) 2.96 2.58 Troponin I 0.024 0.016 Impressions: Chest X-Ray 09/21/17 13:03 IMPRESSION: Chronic bibasilar scarring and pleural thickening. Post thoracotomy changes on the right. . Qualifiers - * PATIENT BEING DISCHARGED WITH ANY OF THE FOLLOWING DIAGNOSIS: No Plan Discharge Plan: D/C home today. Follow up in the office as instructed upon discharge.
[2017-09-25] MEDS: FINASTERIDE 5 MG TABLET PO SCH (09:11)
[2017-09-25] MEDS: DILTIAZEM HCL 180 MG CAPSULE.CR PO SCH (09:11)
[2017-09-25] MEDS: LISINOPRIL 10 MG TABLET PO SCH (09:11)
[2017-09-25] MEDS: DIGOXIN 0.25 MG TABLET PO SCH (09:11)
[2017-09-25 13:25] VITALS: BP 131/52
[2017-09-25] MEDS: RIVAROXABAN 10 MG TABLET PO SCH (17:04)
[2017-09-25] MEDS: TAMSULOSIN HCL 0.4 MG CAP.SR.24H PO SCH (17:19)
== END 2017-09-25 18:30 | disposition home or self-care (01) | DRG 313 ==
LOC: ER 12:50 → EH 16:09 → 3W 17:44
PROVIDERS: ADMIT Internal Medicine Geriatric Medicine; ATTEND Internal Medicine Geriatric Medicine
DX: R07.9 Chest pain, unspecified (principal); I48.2 Chronic atrial fibrillation; G89.4 Chronic pain syndrome; I10 Essential (primary) hypertension; E78.5 Hyperlipidemia, unspecified; K21.9 Gastro-esophageal reflux disease without esophagitis; N40.1 Benign prostatic hyperplasia with lower urinary tract symptoms
CPT/HCPCS: 36415; 71045; 80053; 80061; 80162; 82550; 82553; 83880; 84484; 85025; 85610; 85730; 87040; 93005; 93010; 93306; 99285; J1940; J3490

== ENCOUNTER 2018-04-27 18:43 | Emergency (ER) | payer MEDICARE, OTHER, MEDICAID ==
--- NOTE | 2018-04-27 19:01 | ER Document Report ---
ED Medical Screen (RME) - General Chief Complaint: Painful Cough Stated Complaint: BODY PAIN Time Seen by Provider: 04/27/18 18:55 Notes: 77-year-old male to the emergency department for evaluation of right-sided chest pain, fever, chills and generally not feeling well. States he has had a significant cough for the last week. I have greeted and performed a rapid initial assessment of this patient. A comprehensive ED assessment and evaluation of the patient, analysis of test results and completion of the medical decision making process will be conducted by additional ED providers. TRAVEL OUTSIDE OF THE [place] IN LAST 30 DAYS: No - Related Data Allergies/Adverse Reactions: Shellfish * Allergy (Intermediate, Verified 05/28/17 18:55) Facial swelling Past Medical History - Social History Chew tobacco use (# tins/day): No Frequency of alcohol use: None Drug Abuse: None - Past Medical History Cardiac Medical History: Reports: Hx Atrial Fibrillation, Hx DVT, Hx Hypertension Denies: Hx Heart Attack Pulmonary Medical History: Reports: Hx Pneumonia Denies: Hx Asthma Neurological Medical History: Denies: Hx Cerebrovascular Accident, Hx Seizures Renal/ Medical History: Reports: Hx Benign Prostatic Hyperplasia. Denies: Hx Peritoneal Dialysis GI Medical History: Reports: Hx Gastroesophageal Reflux Disease. Denies: Hx Hepatitis, Hx Hiatal Hernia, Hx Ulcer Psychiatric Medical History: Denies: Hx Depression Infectious Medical History: Denies: Hx Hepatitis Past Surgical History: Reports: Hx Orthopedic Surgery. Denies: Hx Open Heart Surgery, Hx Pacemaker - Immunizations Hx Diphtheria, Pertussis, Tetanus Vaccination: No History of Influenza Vaccine for 01/2017 - 06/2017 Season: Yes Physical Exam - Vital signs Vitals: Temp Pulse Resp BP Pulse Ox 97.8 F 100 18 143/67 H 97 04/27/18 18:47 04/27/18 18:47 04/27/18 18:47 04/27/18 18:47 04/27/18 18:47 Course - Vital Signs Vital signs: Temp Pulse Resp BP Pulse Ox 97.8 F 100 18 143/67 H 97 04/27/18 18:47 04/27/18 18:47 04/27/18 18:47 04/27/18 18:47 04/27/18 18:47 - Laboratory Result Diagrams: 04/27/18 19:15 04/27/18 19:15 Laboratory results interpreted by me: 04/27/18 04/27/18 04/27/18 19:15 19:15 19:15 WBC 15.8 H Hgb 13.3 L RDW 14.8 H Seg Neutrophils % 86.4 H Lymphocytes % 5.9 L Absolute Neutrophils 13.6 H Calcium 10.7 H ALT 20 L Urine Protein 100 H Urine Blood SMALL H Urine Urobilinogen 4.0 H Doctor's Discharge - Discharge Referrals: ASHLEY DACOSTA MD [Primary Care Provider] - Follow up as needed
[2018-04-27 19:39] LABS: ABSOLUTE BASOPHILS # (AUTO) 0.1 10^3/uL (0.0-0.2); ABSOLUTE EOSINOPHILS # (AUTO) 0.1 10^3/uL (0.0-0.6); ABSOLUTE LYMPHOCYTES (AUTO) 0.9 10^3/uL (0.5-4.7); ABSOLUTE MONOCYTES (AUTO) 1.1 10^3/uL (0.1-1.4); ABSOLUTE NEUT (AUTO) 13.6 10^3/uL (1.7-8.2); BASOPHILS % (AUTO) 0.4 % (0-2); EOSINOPHILS % (AUTO) 0.4 % (0-6); HEMATOCRIT 39.7 % (37.9-51.0); HEMOGLOBIN 13.3 g/dL (13.5-17.0); LYMPHOCYTES % (AUTO) 5.9 % (13-45); MEAN CORPUSCULAR HEMOGLOBIN 28.9 pg (27.0-33.4); MEAN CORPUSCULAR HGB CONC 33.4 g/dL (32.0-36.0); MEAN CORPUSCULAR VOLUME 87 fl (80-97); MONOCYTES % (AUTO) 6.9 % (3-13); PLATELET COUNT 203 10^3/uL (150-450); RED BLOOD COUNT 4.58 10^6/uL (4.35-5.55); RED CELL DISTRIBUTION WIDTH 14.8 % (11.5-14.0); SEGMENTED NEUTROPHILS % (AUTO) 86.4 % (42-78); TOTAL CELLS COUNTED % (AUTO) 100 %; WHITE BLOOD COUNT 15.8 10^3/uL (4.0-10.5)
[2018-04-27 19:51] LABS: ALANINE AMINOTRANSFERASE 20 U/L (21-72); ALKALINE PHOSPHATASE 66 U/L (38-126); ANION GAP 8 (5-19); ASPARTATE AMINO TRANSFERASE 21 U/L (17-59); BILIRUBIN,DIRECT 0.4 mg/dL (0.0-0.4); BILIRUBIN,TOTAL 1.3 mg/dL (0.2-1.3); BLOOD UREA NITROGEN 15 mg/dL (7-20); CALCIUM 10.7 mg/dL (8.4-10.2); CARBON DIOXIDE 26 mmol/L (22-30); CHLORIDE 104 mmol/L (98-107); CREATINE KINASE 74 U/L (55-170); GLUCOSE 101 mg/dL (75-110); POTASSIUM 4.5 mmol/L (3.6-5.0); SODIUM 138.4 mmol/L (137-145); TOTAL PROTEIN 7.1 g/dL (6.3-8.2)
[2018-04-27 19:54] LABS: APPEARANCE,URINE CLEAR; BILIRUBIN,URINE NEGATIVE (NEGATIVE); COLOR,URINE YELLOW; GLUCOSE, URINE NEGATIVE (NEGATIVE); KETONES,URINE NEGATIVE (NEGATIVE); LEUKOCYTE ESTERASE,URINE NEGATIVE (NEGATIVE); NITRITE,URINE NEGATIVE (NEGATIVE); PROTEIN,URINE 100 mg/dL (NEGATIVE)
[2018-04-27 20:02] LABS: CREATINE KINASE MB 1.68 ng/mL (<4.55)
[2018-04-27 20:03] LABS: TROPONIN I < 0.012 ng/mL
--- NOTE | 2018-04-27 20:05 | RADIOLOGY REPORT (SQ) ---
EXAM DESCRIPTION: CHEST 2 VIEWS COMPLETED DATE/TIME: 04/27/2018 7:55 pm REASON FOR STUDY: chest pain COMPARISON: 05/28/2017 NUMBER OF VIEWS: Two view. TECHNIQUE: Frontal and lateral radiographic views of the chest acquired. LIMITATIONS: None. FINDINGS: LUNGS AND PLEURA: Chronic blunting of both costophrenic angles. No evidence of pulmonary edema or pneumonia. No pleural effusion. Attenuated blood vessels and flattened kalia-diaphragms. MEDIASTINUM AND HILAR STRUCTURES: No masses. No contour abnormalities. HEART AND VASCULAR STRUCTURES: Heart normal in size and contour. No evidence for failure. BONES: No acute findings. HARDWARE: None in the chest. OTHER: No other significant finding. IMPRESSION: COPD. NO ACUTE RADIOGRAPHIC FINDING IN THE CHEST. TECHNICAL DOCUMENTATION: JOB ID: [id number] [employer]- All Rights Reserved Reading location - IP/workstation name: [email or web address]
[2018-04-27] MEDS ORDERED: LIDOCAINE 5% (700 MG) TRANSDERMAL ADH..PATCH TP ONE (20:36)
[2018-04-27] MEDS ORDERED: DEXAMETHASONE 4 MG TABLET PO ONE (20:36)
[2018-04-27] MEDS ORDERED: BENZONATATE 100 MG CAPSULE PO ONE (20:36)
[2018-04-27] MEDS ORDERED: ACETAMINOPHEN 325 MG TABLET PO ONE (20:39)
--- NOTE | 2018-04-27 20:41 | ER Document Report ---
ED General - General Chief Complaint: Painful Cough Stated Complaint: BODY PAIN Time Seen by Provider: 04/27/18 18:55 Notes: Patient is a 77-year-old male with past medical history of atrial fibrillation, hypertension, presents with 1 week of a persistent cough and several days of right lower rib pain with coughing. Patient states that his symptoms started gradually, have got progressively worse over a period of time. He does describe the pain as a throbbing, aching pain present to the right lower rib spaces only with coughing. He denies any shortness of breath, pleuritic pain, hemoptysis, recorded fever, or syncope. No distinct chest pain. He has not seen his general physician regarding today's concerns. He has not trying to improve his pain. Denies a history of similar symptoms in the past. Does note a remote history of a mass resection from the right lower lobe approximately 20 years ago TRAVEL OUTSIDE OF THE [place] IN LAST 30 DAYS: No - Related Data Allergies/Adverse Reactions: Shellfish * Allergy (Intermediate, Verified 05/28/17 18:55) Facial swelling Past Medical History - General Information source: Patient - Social History Smoking Status: Never Smoker Chew tobacco use (# tins/day): No Frequency of alcohol use: None Drug Abuse: None Lives with: Family Family History: Reviewed & Not Pertinent - Bacitracin Patient has suicidal ideation: No Patient has homicidal ideation: No - Past Medical History Cardiac Medical History: Reports: Hx Atrial Fibrillation, Hx DVT, Hx Hypertension Denies: Hx Heart Attack Pulmonary Medical History: Reports: Hx Pneumonia Denies: Hx Asthma Neurological Medical History: Denies: Hx Cerebrovascular Accident, Hx Seizures Renal/ Medical History: Reports: Hx Benign Prostatic Hyperplasia. Denies: Hx Peritoneal Dialysis GI Medical History: Reports: Hx Gastroesophageal Reflux Disease. Denies: Hx Hepatitis, Hx Hiatal Hernia, Hx Ulcer Psychiatric Medical History: Denies: Hx Depression Infectious Medical History: Denies: Hx Hepatitis Past Surgical History: Reports: Hx Orthopedic Surgery. Denies: Hx Open Heart Surgery, Hx Pacemaker - Immunizations Hx Diphtheria, Pertussis, Tetanus Vaccination: No Review of Systems - Review of Systems Notes: Constitutional: Negative for fever. HENT: Negative for sore throat. Eyes: Negative for visual changes. Cardiovascular: Negative for chest pain. Respiratory: Negative for shortness of breath. Positive for cough Gastrointestinal: Negative for abdominal pain, vomiting or diarrhea. Genitourinary: Negative for dysuria. Musculoskeletal: Negative for back pain. Positive for right lower rib pain Skin: Negative for rash. Neurological: Negative for headaches, weakness or numbness. 10 point ROS negative except as marked above and in HPI. Physical Exam - Vital signs Vitals: Temp Pulse Resp BP Pulse Ox 97.8 F 100 18 143/67 H 97 04/27/18 18:47 04/27/18 18:47 04/27/18 18:47 04/27/18 18:47 04/27/18 18:47 Interpretation: Normal Notes: PHYSICAL EXAMINATION: GENERAL: Well-appearing, well-nourished and in no acute distress. HEAD: Atraumatic, normocephalic. EYES: Pupils equal round and reactive to light, extraocular movements intact, sclera anicteric, conjunctiva are normal. ENT: nares patent, oropharynx clear without exudates. Moderately dry mucous membranes. NECK: Normal range of motion, supple without lymphadenopathy LUNGS: Breath sounds clear to auscultation bilaterally and equal. No wheezes rales or rhonchi. HEART: Irregularly irregular rate and rhythm without murmurs Chest wall: Pain on palpation of the right lower 4 rib spaces ABDOMEN: Soft, nontender, normoactive bowel sounds. No guarding, no rebound. No masses appreciated. EXTREMITIES: Normal range of motion, no pitting or edema. No cyanosis. NEUROLOGICAL: No focal neurological deficits. Moves all extremities spontaneously and on command. PSYCH: Normal mood, normal affect. 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 SKIN: Warm, Dry, normal turgor, no rashes or lesions noted. Course - Re-evaluation Re-evalutation: 04/27/18 20:43 Patient presents with approximately 1 week of cough without any significant sputum production. Although in triage it was noted the patient complained of fever and chills he does deny this to me but does complain of some intermittent body aches. His main complaint is of a throbbing, aching pain to his right lower rib spaces that occurs when he coughs. Patient reports a remote history of what appears to be a mass resection to the right lower lobe and does have 3 small laparoscopic incisional scars over the area. On examination is otherwise extremely well in appearance, no hypoxemia, tachypnea or distress. No retractions. The patient is laughing and having a phone conversation with me the entire time. He states he actually feels quite well currently. His chest x-ray is without any evidence of an acute infiltrate consistent with a pneumonia or a mass. His labs show nonspecific leukocytosis but are otherwise unremarkable. The patient does not complain of symptoms that be consistent with an acute pulmonary embolus or ACS. He denies any shortness of breath, no pleuritic pain entirely a cough based discomfort most consistent with musculoskeletal irritation from what appears to be most likely a viral upper respiratory infection such as bronchitis. The patient has been given a dose of dexamethasone here, will be started on Tessalon Perles at home as well as topical Voltaren gel to the area. At this time will discharge with return precautions and follow-up recommendations. Verbal discharge instructions given a the bedside and opportunity for questions given. Medication warnings reviewed. Patient is in agreement with this plan and has verbalized understanding of return precautions and the need for primary care follow-up in the next 24-72 hours. - Vital Signs Vital signs: Temp Pulse Resp BP Pulse Ox 97.8 F 100 18 143/67 H 97 04/27/18 18:47 04/27/18 18:47 04/27/18 18:47 04/27/18 18:47 04/27/18 18:47 - Laboratory Result Diagrams: 04/27/18 19:15 04/27/18 19:15 Laboratory results interpreted by me: 04/27/18 04/27/18 04/27/18 19:15 19:15 19:15 WBC 15.8 H Hgb 13.3 L RDW 14.8 H Seg Neutrophils % 86.4 H Lymphocytes % 5.9 L Absolute Neutrophils 13.6 H Calcium 10.7 H ALT 20 L Urine Protein 100 H Urine Blood SMALL H Urine Urobilinogen 4.0 H - Diagnostic Test Radiology reviewed: Image reviewed, Reports reviewed Radiology results interpreted by me: 04/27/18 20:40 Chest x-ray: No acute infiltrate or pneumothorax - EKG Interpretation by Me Additional EKG results interpreted by me: 04/27/18 20:40 Atrial fibrillation, intermittent PVCs. No ST elevations or depressions. QTC is 369. Unchanged from previous EKG Discharge - Discharge Clinical Impression: Chronic atrial fibrillation, Rib pain on right side, Persistent cough Acute bronchitis Qualifiers: Bronchitis organism: unspecified organism Qualified Code(s): J20.9 - Acute bronchitis, unspecified Condition: Good Disposition: HOME, SELF-CARE Additional Instructions: You were seen for symptoms most consistent with bronchitis. This can take up to 12 weeks to fully resolve. This is generally due to a viral infection. The pain in the right lower rib spaces is likely due to inflammation and irritation from all the coughing. You have been given a dose of steroids here to help with your persistent cough and irritation of your airways. Please use the Tessalon Perles that have been prescribed as needed for cough. You may apply the topical Vol tong gel but has been prescribed to the area that is causing your pain. Please also take Tylenol 1000 mg every 6 hours as needed for additional pain. Please follow-up with your primary doctor in the next 2-3 days. Return if you develop worsening cough, vomiting, fever >100.4, pass out, begin coughing blood, or have any other symptoms that are concerning to you. Please use the medications prescr ibed today as directed. Prescriptions: Benzonatate [Tessalon Perles 100 mg Capsule] 100 mg PO Q8HP PRN #20 capsule PRN Reason: Diclofenac Sodium [Voltaren] 100 gm TP TID PRN #100 gel..gm. PRN Reason: Referrals: ASHLEY DACOSTA MD [Primary Care Provider] - Follow up tomorrow
[2018-04-27 21:16] VITALS: BP 157/79
--- NOTE | 2018-04-27 23:43 | EKG REPORT ---
SEVERITY:- ABNORMAL ECG - ATRIAL FIBRILLATION, V-RATE 62-109 : Confirmed by: Sabrina Reyes 27-Apr-2018 23:42:08
== END 2018-04-27 21:16 | disposition home or self-care (01) ==
LOC: ER 18:43
DX: I48.2 Chronic atrial fibrillation (principal); J20.9 Acute bronchitis, unspecified; R07.81 Pleurodynia; M79.10 Myalgia, unspecified site; I10 Essential (primary) hypertension; Z86.718 Personal history of other venous thrombosis and embolism
CPT/HCPCS: 93005; 99284; 36415; 82553; 82550; 85025; 80053; 81001; 84484; 71046; 93010; A9270 ×3

== ENCOUNTER → 2019-02-19 | Outpatient (CLI) | payer MEDICARE, OTHER | LOC: RAD 05:58 | PROVIDERS: ATTEND Internal Medicine Geriatric Medicine | DX: I10 Essential (primary) hypertension (principal); R07.89 Other chest pain | CPT/HCPCS: 78451; A9500; Q9969 ==

== ENCOUNTER → 2019-02-25 | Outpatient (CLI) | payer MEDICARE, OTHER ==
[~2019-02-25] MED LIST: REGADENOSON INJ 0.4 MG/5 ML DISP.SYRIN IV ONE
--- NOTE | 2019-02-25 18:34 | DRAGON STRESS TEST REPORT ---
Intravenous Lexiscan Cardiolite stress test using single photon emmision computerized tomography. Date of procedure: 02/25/2019. Ordering Provider: Dr. Lora. Patient's status: Out Patient. Indication: Chest pain. Coronary risk factors: Age, chronic atrial fibrillation, hypertension, and dyslipidemia. Resting EKG: Atrial Fibrillation with controlled ventricular response. Nonspecific ST-T changes inferior and lateral wall leads. Stress EKG: No changes of ischemia. The patient had no chest pain or discomfort, and there were no ventricular arrhythmias seen. Reason for termination: Protocol. Conclusions: Normal EKG and hemodynamic response to IV Lexiscan. Nuclear data: At rest the patient was given 14.72 millicuries of technetium 99m sestamibi injected intravenously. As per protocol rest non gated SPECT images were obtained. Subsequently the patient was given intravenous Lexiscan at a dose of 0.4 mg in 5 mL intravenously, followed by flush with normal saline. Subsequently the stress dose of 42.2 millicuries of technetium 99m sestamibi was injected intravenously. As per protocol stress gated images were obtained. Nuclear interpretation: Review of images showed that all segments of the myocardium had normal perfusion at rest, and normal perfusion post stress with IV Lexiscan.All segments of the myocardium had normal motion, contraction, and thickening by gated study. T. I D. ratio was read as abnormal at 1.35. Visually this is not reliable, and visually that T I D ratio is normal.. There is no transient ischemic dilatation of the left ventricle. Computer read rest, and stress left ventricular ejection fraction were 77 %, and 69 %, respectively. Conclusion: 1. There is no scintigraphic evidence of Lexiscan induced myocardial ischemia. 2. There is no scintigraphic evidence of myocardial infarction/scar. Recommendations: Aggressive risk factor modification, and treating the underlying co- morbidities. [facility]
== END ==
LOC: RAD 07:39
PROVIDERS: ATTEND Internal Medicine Geriatric Medicine
DX: I10 Essential (primary) hypertension (principal); R07.89 Other chest pain; I48.20 Chronic atrial fibrillation, unspecified; E78.5 Hyperlipidemia, unspecified
CPT/HCPCS: 93017; 78451; A9500; J2785; Q9969

== ENCOUNTER 2019-04-27 13:59 | Emergency (ER) | payer MEDICARE, OTHER ==
--- NOTE | 2019-04-27 16:04 | ER Document Report ---
ED Medical Screen (RME) - General Chief Complaint: Dizziness Stated Complaint: COUGH Time Seen by Provider: 04/27/19 15:58 Primary Care Provider: ASHLEY DACOSTA MD [Primary Care Provider] - Follow up as needed Mode of Arrival: Ambulatory Information source: Patient Notes: 78-year-old male presents emergency department with reports that he just does not feel well. Reports some dizziness reports some cough denies fever vomiting diarrhea. Denies chest pain denies shortness of breath. Patient looks nontoxic reports he just does not feel well. He reports he is eating drinking as normal. I have greeted and performed a rapid initial assessment of this patient. A comprehensive ED assessment and evaluation of the patient, analysis of test results and completion of the medical decision making process will be conducted by additional ED providers. TRAVEL OUTSIDE OF THE [place] IN LAST 30 DAYS: No - Related Data Allergies/Adverse Reactions: Shellfish * Allergy (Intermediate, Verified 04/27/19 15:56) Facial swelling Past Medical History - Past Medical History Cardiac Medical History: Reports: Hx Atrial Fibrillation, Hx DVT, Hx Hypertension Denies: Hx Heart Attack Pulmonary Medical History: Reports: Hx Pneumonia Denies: Hx Asthma Neurological Medical History: Denies: Hx Cerebrovascular Accident, Hx Seizures Renal/ Medical History: Reports: Hx Benign Prostatic Hyperplasia. Denies: Hx Peritoneal Dialysis GI Medical History: Reports: Hx Gastroesophageal Reflux Disease. Denies: Hx Hepatitis, Hx Hiatal Hernia, Hx Ulcer Psychiatric Medical History: Denies: Hx Depression Infectious Medical History: Denies: Hx Hepatitis Past Surgical History: Reports: Hx Orthopedic Surgery. Denies: Hx Open Heart Surgery, Hx Pacemaker - Immunizations Hx Diphtheria, Pertussis, Tetanus Vaccination: No Physical Exam - Vital signs Vitals: Temp Pulse Resp BP Pulse Ox 98.4 F 64 16 115/58 L 98 04/27/19 14:31 04/27/19 14:31 04/27/19 14:31 04/27/19 14:31 04/27/19 14:31 Course - Vital Signs Vital signs: Temp Pulse Resp BP Pulse Ox 98.4 F 64 16 115/58 L 98 04/27/19 14:31 04/27/19 14:31 04/27/19 14:31 04/27/19 14:31 04/27/19 14:31 Doctor's Discharge - Discharge Referrals: ASHLEY DACOSTA MD [Primary Care Provider] - Follow up as needed
--- NOTE | 2019-04-27 16:40 | RADIOLOGY REPORT (SQ) ---
EXAM DESCRIPTION: CHEST 2 VIEWS COMPLETED DATE/TIME: 04/27/2019 4:27 pm REASON FOR STUDY: dizzy cough COMPARISON: 04/27/2018 TECHNIQUE: Frontal and lateral radiographic views of the chest acquired. NUMBER OF VIEWS: Two view. LIMITATIONS: None. FINDINGS: LUNGS AND PLEURA: No pneumothorax. Similar chronic interstitial changes -parenchymal scar ring. No consolidation. Increased right pleural effusion. Similar left costophrenic angle scarring . MEDIASTINUM AND HILAR STRUCTURES: Stable. HEART AND VASCULAR STRUCTURES: Stable. BONES: No acute findings. HARDWARE: None in the chest. OTHER: No other significant finding. IMPRESSION: No consolidation. Increased right pleural effusion. TECHNICAL DOCUMENTATION: JOB ID: [id number] [employer]- All Rights Reserved Reading location - IP/workstation name: [email or web address]
[2019-04-27 17:28] LABS: ABSOLUTE EOSINOPHILS # (AUTO) 0.2 10^3/uL (0.0-0.6); ABSOLUTE LYMPHOCYTES (AUTO) 1.7 10^3/uL (0.5-4.7); ABSOLUTE MONOCYTES (AUTO) 0.6 10^3/uL (0.1-1.4); ABSOLUTE NEUT (AUTO) 6.1 10^3/uL (1.7-8.2); BASOPHILS % (AUTO) 0.5 % (0-2); EOSINOPHILS % (AUTO) 2.1 % (0-6); HEMOGLOBIN 14.7 g/dL (13.5-17.0); LYMPHOCYTES % (AUTO) 19.3 % (13-45); MEAN CORPUSCULAR HEMOGLOBIN 29.3 pg (27.0-33.4); MEAN CORPUSCULAR HGB CONC 34.2 g/dL (32.0-36.0); MEAN CORPUSCULAR VOLUME 86 fl (80-97); MONOCYTES % (AUTO) 7.5 % (3-13); PLATELET COUNT 196 10^3/uL (150-450); RED BLOOD COUNT 5.01 10^6/uL (4.35-5.55); RED CELL DISTRIBUTION WIDTH 15.1 % (11.5-14.0); SEGMENTED NEUTROPHILS % (AUTO) 70.6 % (42-78); TOTAL CELLS COUNTED % (AUTO) 100 %; WHITE BLOOD COUNT 8.6 10^3/uL (4.0-10.5)
[2019-04-27 17:39] LABS: A TYPE INFLUENZA AG NEGATIVE (NEGATIVE); B INFLUENZA AG NEGATIVE (NEGATIVE)
[2019-04-27 17:46] LABS: ALBUMIN 4.2 g/dL (3.5-5.0); ALKALINE PHOSPHATASE 65 U/L (38-126); ANION GAP 8 (5-19); ASPARTATE AMINO TRANSFERASE 24 U/L (17-59); BILIRUBIN,DIRECT 0.2 mg/dL (0.0-0.4); BILIRUBIN,TOTAL 0.9 mg/dL (0.2-1.3); BLOOD UREA NITROGEN 24 mg/dL (7-20); CALCIUM 11.4 mg/dL (8.4-10.2); CARBON DIOXIDE 28 mmol/L (22-30); CHLORIDE 101 mmol/L (98-107); GLUCOSE 95 mg/dL (75-110); POTASSIUM 5.3 mmol/L (3.6-5.0); TOTAL PROTEIN 7.5 g/dL (6.3-8.2)
--- NOTE | 2019-04-27 18:43 | EKG REPORT ---
SEVERITY:- ABNORMAL ECG - ATRIAL FIBRILLATION, V-RATE 47-62 : Confirmed by: Troy Kenney MD 27-Apr-2019 18:43:00
--- NOTE | 2019-04-27 20:23 | ER Document Report ---
ED General - General Chief Complaint: Dizziness Stated Complaint: COUGH Time Seen by Provider: 04/27/19 15:58 Primary Care Provider: ASHLEY DACOSTA MD [Primary Care Provider] - Follow up as needed Mode of Arrival: Ambulatory TRAVEL OUTSIDE OF THE [place] IN LAST 30 DAYS: No - Related Data Allergies/Adverse Reactions: Shellfish * Allergy (Intermediate, Verified 04/27/19 15:56) Facial swelling Past Medical History - General Information source: Patient - Social History Smoking Status: Former Smoker Family History: Reviewed & Not Pertinent - Bacitracin Patient has suicidal ideation: No Patient has homicidal ideation: No - Past Medical History Cardiac Medical History: Reports: Hx Atrial Fibrillation, Hx DVT, Hx Hypertension Denies: Hx Heart Attack Pulmonary Medical History: Reports: Hx Pneumonia Denies: Hx Asthma Neurological Medical History: Denies: Hx Cerebrovascular Accident, Hx Seizures Renal/ Medical History: Reports: Hx Benign Prostatic Hyperplasia. Denies: Hx Peritoneal Dialysis GI Medical History: Reports: Hx Gastroesophageal Reflux Disease. Denies: Hx Hepatitis, Hx Hiatal Hernia, Hx Ulcer Psychiatric Medical History: Denies: Hx Depression Infectious Medical History: Denies: Hx Hepatitis Past Surgical History: Reports: Hx Orthopedic Surgery. Denies: Hx Open Heart Surgery, Hx Pacemaker - Immunizations Hx Diphtheria, Pertussis, Tetanus Vaccination: No Physical Exam - Vital signs Vitals: Temp Pulse Resp BP Pulse Ox 98.4 F 64 16 115/58 L 98 04/27/19 14:31 04/27/19 14:31 04/27/19 14:31 04/27/19 14:31 04/27/19 14:31 - Notes Notes: Presents emergency department indicating he is not been feeling well for couple days. Some generalized myalgias runny nose cough congestion and occasional dizziness. He says he gets a dizziness when she stands up quickly. Resolves very quickly and he is able to ambulate without difficulty. No active vertigo symptoms. He denies any headaches or abnormal vision. No sore throat chest pain shortness of breath nausea vomiting or abdominal pain. He is not any fevers. Appetite is been good Past medical history significant hypertension atrial fibrillation and DVT denies any history of diabetes or coronary disease. Social history does not smoke or drink at all. Review of systems pertinent positives and negatives in HPI otherwise all the systems were reviewed and acutely negative Medications he is not on any anticoagulants because of a previous GI bleed PHYSICIAN EXAM -vital signs are noted triage note and note from triage reviewed GENERAL: Well-appearing, well-nourished and in ____no acute distress__ HEAD: Atraumatic, normocephalic. EYES: Pupils equal round and reactive to light, extraocular movements intact, sclera anicteric, conjunctiva are normal. ENT: nares patent, oropharynx clear without exudates. Moist mucous membranes. NECK: supple without lymphadenopathy LUNGS: Breath sounds clear to auscultation bilaterally in the upper lobes with decreased on the right lower lobe. He is got an old surgical scar at the right posterior hemithorax and equal. No wheezes rales or rhonchi. HEART: Irregularly irregular with controlled rate ABDOMEN: Soft, nontender, normoactive bowel sounds. EXTREMITIES: No deformity, no edema. NEUROLOGICAL: Alert and oriented x4. Cranial nerves he has symmetrical smile facies and shoulder shrug. His motor strength is 5/5 bilaterally in the upper and lower extremities. Toes downgoing. Sensation is intact to light touch is a negative Romberg and normal gait PSYCH: Normal mood, normal affect. SKIN: Warm, Dry, normal turgor, no rashes or lesions noted. 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 On his old chart heart rate runs around 60. Get the patient up and ambulate him provement of his heart rate. O2 sats have been good and he continues to have a nonfocal neurological exam. Was a long delay in obtaining digoxin level Decision making patient presents emerge department with appears to be a viral syndrome. Laboratory studies are unremarkable he looks well and I think he be discharged home At this time there is no indication for admission. I have discussed the findings with patient/family with return precautions and follow-up recommendations. Verbal discharge instructions given at the bedside and opportunity for questions given. Medication warnings were given if indicated. Patient is in agreement with this plan and has verbalized understanding of retu rn precautions and the need for primary care follow-up as directed.. - Vital Signs Vital signs: Temp Pulse Resp BP Pulse Ox 97.5 F 64 15 123/69 100 04/27/19 22:23 04/27/19 14:31 04/27/19 22:01 04/27/19 22:01 04/27/19 22:01 - Laboratory Result Diagrams: 04/27/19 16:52 04/27/19 16:52 Laboratory results interpreted by me: 04/27/19 04/27/19 16:52 16:52 RDW 15.1 H Sodium 136.7 L Potassium 5.3 H BUN 24 H Calcium 11.4 H Discharge - Discharge Clinical Impression: Viral syndrome Disposition: HOME, SELF-CARE Additional Instructions: Viral Syndrome The physician has diagnosed a viral infection. Viruses not only cause "colds," but can cause many different symptoms including generalized aching, fever, headache, cough, diarrhea, nausea, vomiting, and fatigue. The treatment, for the most part, is simply relief of symptoms. This means that antibiotics are usually not given. Rest, fluids, pain medications and, occasionally, medication for the specific symptoms that are most bothersome will be prescribed. Use good handwashing to avoid passing the virus to others. Shared toys should be cleaned with disinfectant. Clean the toilets, sinks, and counter surfaces in bathrooms. Launder clothing in hot water. Contact the physician if you develop any new or unusual symptoms such as severe headache, stiff neck, high fever, chest pain, productive cough, or shortness of breath. You should be rechecked if you don't see marked improvement within seven to 10 days. Please review the discharge instructions, they will tell you about your disease/injury and what you need to return to the ED for Return to the ED if you feel worse or can follow-up with your family doctor Drink plenty of fluids You can take Tylenol for pain or fever Follow-up with your family doctor in 3 to 5 days if not better Referrals: ASHLEY DACOSTA MD [Primary Care Provider] - Follow up as needed
[2019-04-28 00:30] VITALS: BP 127/77
== END 2019-04-27 23:45 | disposition home or self-care (01) ==
LOC: ER 13:59
DX: B34.9 Viral infection, unspecified (principal); R05 Cough; R09.89 Other specified symptoms and signs involving the circulatory and respiratory systems; M79.10 Myalgia, unspecified site; R42 Dizziness and giddiness; I10 Essential (primary) hypertension; Z87.891 Personal history of nicotine dependence; Z91.013 Allergy to seafood
CPT/HCPCS: 36415; 71046; 80053; 80162; 84484; 85025; 87804; 93005; 93010; 99284

== ENCOUNTER 2019-08-20 16:23 | Emergency (ER) | payer MEDICARE, OTHER ==
--- NOTE | 2019-08-20 17:35 | ER Document Report ---
HPI - HPI Time Seen by Provider: 08/20/19 16:36 Notes: Patient is an 79-year-old male presenting to the emergency department with chief complaint of hoarse voice and dry mouth. Patient believes this may be related to new medications he has recently started. He denies any chest pain, shortness of breath, fever, nausea, vomiting or diarrhea. - REPRODUCTIVE Reproductive: DENIES: : Past Medical History - General Information source: Patient - Social History Smoking Status: Never Smoker Frequency of alcohol use: None Drug Abuse: None Family History: Reviewed & Not Pertinent - Bacitracin - Past Medical History Cardiac Medical History: Reports: Hx Atrial Fibrillation, Hx DVT, Hx Hypertension Denies: Hx Heart Attack Pulmonary Medical History: Reports: Hx Pneumonia Denies: Hx Asthma Neurological Medical History: Denies: Hx Cerebrovascular Accident, Hx Seizures Renal/ Medical History: Reports: Hx Benign Prostatic Hyperplasia. Denies: Hx Peritoneal Dialysis GI Medical History: Reports: Hx Gastroesophageal Reflux Disease. Denies: Hx Hepatitis, Hx Hiatal Hernia, Hx Ulcer Psychiatric Medical History: Denies: Hx Depression Infectious Medical History: Denies: Hx Hepatitis Past Surgical History: Reports: Hx Orthopedic Surgery. Denies: Hx Open Heart Surgery, Hx Pacemaker - Immunizations Hx Diphtheria, Pertussis, Tetanus Vaccination: No Vertical Provider Document - CONSTITUTIONAL Notes: PHYSICAL EXAMINATION: GENERAL: Well-appearing, well-nourished and in no acute distress. HEAD: Atraumatic, normocephalic. EYES: Pupils equal round and reactive to light, extraocular movements intact, sclera anicteric, conjunctiva are normal. ENT: Nares patent, oropharynx clear without exudates. Moist mucous membranes. Tongue appears dry. NECK: Normal range of motion, supple without lymphadenopathy LUNGS: Breath sounds clear to auscultation bilaterally and equal. No wheezes rales or rhonchi. HEART: Regular rate and rhythm without murmurs ABDOMEN: Soft, nontender, nondistended abdomen. No guarding, no rebound. No masses appreciated. Musculoskeletal: Normal range of motion, no pitting or edema. No cyanosis. NEUROLOGICAL: Cranial nerves grossly intact. Normal speech, normal gait. Normal sensory, motor exams PSYCH: Normal mood, normal affect. SKIN: Warm, Dry, normal turgor, no rashes or lesions noted. - INFECTION CONTROL TRAVEL OUTSIDE OF THE [place] IN LAST 30 DAYS: No Course - Re-evaluation Re-evalutation: Basic labs were obtained, patient was swabbed for strep. Strep was negative. Patient did have hypercalcemia. His calcium level was 12. Upon reviewing his records he has had Hypercalcemia in the past and has slowly been trending up over the last 18-24 months. EKG was obtained, shows a sinus rhythm, no ST segment elevations or depressions to suggest ischemia and a normal axis. Patient is asymptomatic as far as any symptoms from hypercalcemia. Medications were reviewed, he is not taking any calcium supplements or multivitamins. I have encouraged the patient to please have close follow-up with his primary care provider regarding this and he verbalized agreement with this. He will be given a prescription for Magic mouthwash to help with his dry mouth. Throat culture is pending. - Laboratory Result Diagrams: 08/20/19 17:55 08/20/19 17:55 Discharge - Discharge Clinical Impression: Hypercalcemia Condition: Stable Disposition: HOME, SELF-CARE Additional Instructions: Your work-up today was reassuring. Your rapid strep was negative. Your calcium level was elevated. Upon reviewing your records over the last 2 years it looks like it has been elevated however it is going higher. Please call your primary care provider tomorrow to discuss this. Let him know your calcium level was 12. I believe some of the symptoms you are having are probably related to your medications. Please have close follow-up with your primary care for further evaluation of this. Prescriptions: Nystatin/Dexameth/Diphen [Magic Mouthwash (Omh Formula) Susp] 5 ml PO QID #120 ml Referrals: ASHLEY DACOSTA MD [Primary Care Provider] - Follow up as needed
[2019-08-20 18:09] LABS: ABSOLUTE BASOPHILS # (AUTO) 0.1 10^3/uL (0.0-0.2); ABSOLUTE EOSINOPHILS # (AUTO) 0.1 10^3/uL (0.0-0.6); ABSOLUTE LYMPHOCYTES (AUTO) 1.2 10^3/uL (0.5-4.7); ABSOLUTE MONOCYTES (AUTO) 0.7 10^3/uL (0.1-1.4); ABSOLUTE NEUT (AUTO) 9.6 10^3/uL (1.7-8.2); BASOPHILS % (AUTO) 0.6 % (0-2); EOSINOPHILS % (AUTO) 0.7 % (0-6); HEMATOCRIT 50.3 % (37.9-51.0); HEMOGLOBIN 17.2 g/dL (13.5-17.0); LYMPHOCYTES % (AUTO) 10.4 % (13-45); MEAN CORPUSCULAR HEMOGLOBIN 30.1 pg (27.0-33.4); MEAN CORPUSCULAR HGB CONC 34.1 g/dL (32.0-36.0); MEAN CORPUSCULAR VOLUME 88 fl (80-97); MONOCYTES % (AUTO) 6.1 % (3-13); PLATELET COUNT 199 10^3/uL (150-450); RED BLOOD COUNT 5.69 10^6/uL (4.35-5.55); RED CELL DISTRIBUTION WIDTH 14.8 % (11.5-14.0); SEGMENTED NEUTROPHILS % (AUTO) 82.2 % (42-78); TOTAL CELLS COUNTED % (AUTO) 100 %; WHITE BLOOD COUNT 11.7 10^3/uL (4.0-10.5)
[2019-08-20 18:28] LABS: ALBUMIN 4.3 g/dL (3.5-5.0); ALKALINE PHOSPHATASE 74 U/L (38-126); ANION GAP 9 (5-19); ASPARTATE AMINO TRANSFERASE 27 U/L (17-59); BILIRUBIN,DIRECT 0.1 mg/dL (0.0-0.4); BILIRUBIN,TOTAL 1.1 mg/dL (0.2-1.3); BLOOD UREA NITROGEN 22 mg/dL (7-20); CARBON DIOXIDE 29 mmol/L (22-30); CHLORIDE 96 mmol/L (98-107); GLUCOSE 116 mg/dL (75-110); POTASSIUM 5.1 mmol/L (3.6-5.0); TOTAL PROTEIN 7.5 g/dL (6.3-8.2)
--- NOTE | 2019-08-20 23:57 | EKG REPORT ---
SEVERITY:- ABNORMAL ECG - ATRIAL FIBRILLATION, V-RATE 59-[address]-T WAVE CHANGES LVH REALATED : Confirmed by: Sabrina Reyes 20-Aug-2019 23:57:10
== END 2019-08-20 20:28 | disposition home or self-care (01) ==
LOC: ER 16:23
DX: E83.52 Hypercalcemia (principal); I10 Essential (primary) hypertension; R49.0 Dysphonia; R68.2 Dry mouth, unspecified
CPT/HCPCS: 36415; 80053; 85025; 87070; 87880; 93005; 93010; 99285

== ENCOUNTER 2019-08-29 17:59 | Inpatient (IN) | payer MEDICARE, OTHER ==
[2019-08-29 18:25] LABS: ABSOLUTE BASOPHILS # (AUTO) 0.1 10^3/uL (0.0-0.2); ABSOLUTE EOSINOPHILS # (AUTO) 0.1 10^3/uL (0.0-0.6); ABSOLUTE LYMPHOCYTES (AUTO) 1.4 10^3/uL (0.5-4.7); ABSOLUTE NEUT (AUTO) 10.9 10^3/uL (1.7-8.2); BASOPHILS % (AUTO) 0.7 % (0-2); EOSINOPHILS % (AUTO) 0.6 % (0-6); HEMATOCRIT 43.1 % (37.9-51.0); HEMOGLOBIN 14.8 g/dL (13.5-17.0); LYMPHOCYTES % (AUTO) 10.2 % (13-45); MEAN CORPUSCULAR HEMOGLOBIN 29.8 pg (27.0-33.4); MEAN CORPUSCULAR HGB CONC 34.2 g/dL (32.0-36.0); MEAN CORPUSCULAR VOLUME 87 fl (80-97); MONOCYTES % (AUTO) 7.7 % (3-13); PLATELET COUNT 224 10^3/uL (150-450); RED BLOOD COUNT 4.95 10^6/uL (4.35-5.55); RED CELL DISTRIBUTION WIDTH 14.5 % (11.5-14.0); SEGMENTED NEUTROPHILS % (AUTO) 80.8 % (42-78); TOTAL CELLS COUNTED % (AUTO) 100 %; WHITE BLOOD COUNT 13.4 10^3/uL (4.0-10.5)
[2019-08-29 18:40] LABS: ALBUMIN 3.4 g/dL (3.5-5.0); ALKALINE PHOSPHATASE 53 U/L (38-126); ASPARTATE AMINO TRANSFERASE 22 U/L (17-59); BILIRUBIN,DIRECT 0.2 mg/dL (0.0-0.4); BILIRUBIN,TOTAL 0.9 mg/dL (0.2-1.3); BLOOD UREA NITROGEN 26 mg/dL (7-20); CARBON DIOXIDE 31 mmol/L (22-30); CHLORIDE 94 mmol/L (98-107); GLUCOSE 112 mg/dL (75-110); POTASSIUM 4.8 mmol/L (3.6-5.0); TOTAL PROTEIN 6.1 g/dL (6.3-8.2)
[2019-08-29 18:41] LABS: CREATINE KINASE < 20 U/L (55-170)
[2019-08-29 18:49] LABS: ANION GAP 4 (5-19); CALCIUM 11.9 mg/dL (8.4-10.2)
[2019-08-29 18:52] LABS: CREATINE KINASE MB 1.88 ng/mL (<4.55); TROPONIN I 0.033 ng/mL
--- NOTE | 2019-08-29 19:03 | ER Document Report ---
ED General - General Chief Complaint: Syncope Stated Complaint: SYNCOPE Time Seen by Provider: 08/29/19 18:46 Mode of Arrival: Ambulatory Information source: Patient TRAVEL OUTSIDE OF THE [place] IN LAST 30 DAYS: No - HPI Onset/Duration: Sudden Similar symptoms previously: No Recently seen / treated by doctor: Yes - patient was seen at [facility] August 23 Notes: 79 year old male with a history of AFib, CHF, HTN, DVT, GERD, BPH here in the ER for dizziness and syncope. The patient says he has felt dizzy and weak for several days now. The patient was seen at an outpatient clinic on August 23 and had blood work, a chest xray, and a UA. The patient was apparently told he had pneumonia and he was started on Augmentin. The patient says denies fevers, chills, sweats, nausea, vomiting, diarrhea, cough. The patient thinks he may have taken some of his medications incorrectly this week. EMS apparently found the patient to be tachycardic and hypotensive on their arrival. - Related Data Allergies/Adverse Reactions: Shellfish * Allergy (Intermediate, Verified 08/29/19 20:39) Facial swelling Home Medications: lasix, digoxin, finasteride, lisinopril, tamsulosin, augmentin Past Medical History - General Information source: Patient - Social History Smoking Status: Unknown if Ever Smoked Chew tobacco use (# tins/day): No Frequency of alcohol use: None Drug Abuse: None Family History: Reviewed & Not Pertinent - Bacitracin Patient has homicidal ideation: No - Past Medical History Cardiac Medical History: Reports: Hx Atrial Fibrillation, Hx Congestive Heart Failure, Hx DVT, Hx Hypertension Denies: Hx Heart Attack Pulmonary Medical History: Reports: Hx Pneumonia Denies: Hx Asthma Neurological Medical History: Denies: Hx Cerebrovascular Accident, Hx Seizures Renal/ Medical History: Reports: Hx Benign Prostatic Hyperplasia. Denies: Hx Peritoneal Dialysis GI Medical History: Reports: Hx Gastroesophageal Reflux Disease. Denies: Hx Hepatitis, Hx Hiatal Hernia, Hx Ulcer Psychiatric Medical History: Denies: Hx Depression Infectious Medical History: Denies: Hx Hepatitis Past Surgical History: Reports: Hx Orthopedic Surgery. Denies: Hx Open Heart Surgery, Hx Pacemaker - Immunizations Hx Diphtheria, Pertussis, Tetanus Vaccination: No Review of Systems - Review of Systems Constitutional: Weakness EENT: No symptoms reported Cardiovascular: Syncope, Dizziness Respiratory: Short of breath Gastrointestinal: No symptoms reported Genitourinary: No symptoms reported Male Genitourinary: No symptoms reported Musculoskeletal: No symptoms reported Skin: No symptoms reported Hematologic/Lymphatic: No symptoms reported Neurological/Psychological: No symptoms reported -: Yes All other systems reviewed and negative Physical Exam - Vital signs Vitals: Temp 97.7 F 08/29/19 17:59 - Notes Notes: GENERAL: Well-appearing, well-nourished and in no acute distress. HEAD: Atraumatic, normocephalic. EYES: Pupils equal round and reactive to light, extraocular movements intact, sclera anicteric, conjunctiva are normal. ENT: External ears normal, nares patent, oropharynx clear without exudates. Moist mucous membranes. NECK: Normal range of motion, supple without lymphadenopathy or JVD. LUNGS: Breath sounds clear to auscultation bilaterally and equal. No wheezes rales or rhonchi. HEART: Regular rate and irregular rhythm without murmurs, rubs or gallops. ABDOMEN: Soft, nontender, normoactive bowel sounds. No guarding, no rebound. No masses appreciated. EXTREMITIES: Normal range of motion, no pitting or edema. No clubbing or cy anosis. NEUROLOGICAL: Cranial nerves II through XII grossly intact. Normal speech, normal gait. PSYCH: Normal mood, normal affect. SKIN: Warm, Dry, normal turgor, no rashes or lesions noted. Course - Re-evaluation Re-evalutation: 08/29/19 20:50 The patient apparently has been dizzy and he had some syncopal events over the last few days. EMS found the patient to be tachycardic and hypotensive today. Work up in the ER shows a slightly low Na but not much else to explain his symptoms. It is possible the patient has been going into AFib with RVR and then becoming symptomatic. Will rule out infectious processes but admit for Obs given dizziness and syncope are new for him. Family was contacted by nursing and family says the patient has lost over 20lbs of weight in the last month unintentionally. Family says the patient is usually able to perform his own ADLs but he has not been able to do so this week. - Vital Signs Vital signs: Temp Pulse Resp BP Pulse Ox 97.7 F 16 122/64 100 08/29/19 18:03 05/02/20 20:31 08/29/19 20:31 08/29/19 20:31 - Laboratory Result Diagrams: 08/29/19 18:01 08/29/19 18:01 Laboratory results interpreted by me: 08/29/19 08/29/19 18:01 18:01 WBC 13.4 H RDW 14.5 H Lymph % (Auto) 10.2 L Absolute Neuts (auto) 10.9 H Seg Neutrophils % 80.8 H Sodium 128.8 L Chloride 94 L Carbon Dioxide 31 H Anion Gap 4 L BUN 26 H Glucose 112 H Calcium 11.9 H Creatine Kinase < 20 L Total Protein 6.1 L Albumin 3.4 L - Diagnostic Test Radiology reviewed: Image reviewed, Reports reviewed - EKG Interpretation by Me EKG shows normal: [place], Intervals, QRS Complexes, ST-T Waves Rate: Normal Rhythm: A.Fib When compared to previous EKG there are: No significant change Discharge - Discharge Clinical Impression: Atrial fibrillation Qualifiers: Atrial fibrillation type: unspecified Qualified Code(s): I48.91 - Unspecified atrial fibrillation Syncope Qualifiers: Syncope type: unspecified Qualified Code(s): R55 - Syncope and collapse Condition: Stable Disposition: ADMITTED OBSERVATION Admitting Provider: Guido Staley covering and spoken to Unit Admitted: [facility]
[2019-08-29 20:10] LABS: APPEARANCE,URINE CLEAR; BILIRUBIN,URINE NEGATIVE (NEGATIVE); COLOR,URINE AMBER; GLUCOSE, URINE NEGATIVE (NEGATIVE); KETONES,URINE NEGATIVE (NEGATIVE); LEUKOCYTE ESTERASE,URINE NEGATIVE (NEGATIVE); NITRITE,URINE NEGATIVE (NEGATIVE); PROTEIN,URINE NEGATIVE (NEGATIVE); URINE SPECIFIC GRAVITY 1.024
[2019-08-29] MEDS ORDERED: NORMAL SALINE 1000 ML 1,000 ML IV PRN (20:47)
--- NOTE | 2019-08-29 20:57 | RADIOLOGY REPORT (SQ) ---
EXAM DESCRIPTION: XR CHEST 2 VIEWS COMPLETED DATE/TME: 08/29/2019 18:51 CLINICAL HISTORY: eval for SOB COMPARISON: April 27, 2019 FINDINGS: Cardiac silhouette is within normal limits. EKG leads project over the chest. Patient is status post right thoracotomy. Linear opacity at the right lower lung may represent scar, unchanged compared with the prior exam. Nodularity projecting at the left lower lung is unchanged compared with the prior examination. There is no new focal parenchymal or pleural disease. There is no acute osseous process visualized. IMPRESSION: No evidence of acute cardiopulmonary disease.
--- NOTE | 2019-08-29 21:24 | EKG REPORT ---
SEVERITY:- ABNORMAL ECG - ATRIAL FIBRILLATION, V-RATE 52-[address] DEPRESSION, LATERAL LEADS : Confirmed by: Citlali Almonte MD 29-Aug-2019 21:23:34
--- NOTE | 2019-08-29 21:30 | RADIOLOGY REPORT (SQ) ---
EXAM DESCRIPTION: CT HEAD WITHOUT IV CONTRAST COMPLETED DATE/TME: 08/29/2019 19:44 CLINICAL HISTORY: 79 years, Male, eval for AMS and syncope COMPARISON: None. EXAM DESCRIPTION: CLINICAL HISTORY: eval for AMS and syncope COMPARISON: None Available TECHNIQUE: Contiguous axial CT images of the head were obtained. Coronal and sagittal reconstructions were created from the axial data. This exam was performed according to our departmental dose-optimization program, which includes automated exposure control, adjustment of the mA and/or kV according to patient size and/or use of iterative reconstruction technique. FINDINGS: There is a small amount of ectopic gas in each infratemporal fossa. Ectopic gas is also seen in each cavernous sinus. There is a tiny amount of ectopic gas in the foramen magnum anterior aspect just right of midline. There is no other evidence of acute mass, mass effect, midline shift or hemorrhage. The ventricles and extra-axial CSF spaces are unremarkable. The brain parenchyma appears normal for the patient's age. No acute abnormalities of the bones is seen. IMPRESSION: Scattered ectopic gas could be related to recent vascular access but is nonspecific. No other acute intracranial abnormality.
--- NOTE | 2019-08-29 21:34 | RADIOLOGY REPORT (SQ) ---
EXAM DESCRIPTION: CT CHEST WITHOUT IV CONTRAST COMPLETED DATE/TME: 08/29/2019 00:00 CLINICAL HISTORY: 79 years Male copd COMPARISON: 03/07/2012. TECHNIQUE: Contiguous axial images obtained through the chest without IV contrast. Reformatted images obtained. This exam was performed according to our department optimization program which includes automated exposure control, adjustment of the mA and/or kv according to patient size and/or use of iterative reconstruction technique. FINDINGS: There is small areas of scarring along the lateral left lung base with a calcified granuloma in the costophrenic angle similar to the previous examination. Areas of scarring along the lateral right lower lobe and in the right lung apex in regions of previous abnormality. Small foci of calcification are associated with the areas of scarring. Nonspecific nodular focus in the lateral left upper lobe measuring 4 mm. This could be followed in 12 months. Previous thoracotomy defect on the right. Coronary artery calcifications. No significant hilar or mediastinal lymph nodes. Atherosclerotic calcifications in the thoracic aorta. No consolidating infiltrates or pleural effusions. Cholelithiasis and right nephrolithiasis. IMPRESSION: Areas of scarring in the right hemithorax in regions of previous infiltrate on the examination from 2011 Vascular calcification in aorta and coronary arteries No evidence of acute process in the chest 4 mm nodule in the left upper lobe which could be followed in 12 months Additional chronic changes as above
[2019-08-29] MEDS: ENOXAPARIN SODIUM INJ 40 MG/0.4 ML DISP.SYRIN SUBCUT SCH (21:53)
--- NOTE | 2019-08-29 22:06 | PDOC H&P ---
History of Present Illness Admission Date/PCP: 08/29/19 19:48 ASHLEY DACOSTA History of Present Illness: ARELIS Charlee BAUTISTA is a 79 year old male, I received a call from this patient's family friend, he was concerned about this patient and he gave me the patient's phone number for me to call him at home, I called the patient I was hardly able to hear him on the phone, the voice was very soft and the tone was extremely low but I heard him say he felt unwell, I advised him to go to the emergency room for evaluation. He has a history of chronic atrial fibrillation, hypertension, deep vein thrombosis acid reflux disease enlarged prostate gland. In the emergency room he was evaluated, it felt that apparently he was seen at Dr. Dacosta's office on August 23, he had a chest x-ray done, he was diagnosed with pneumonia was prescribed Augmentin based on the record from the emergency room. Patient endorses history of recurrent falls recently emergency room a CAT scan of the head was done, it demonstrated small amount of gas in the infratemporal fossa there is no evidence of acute mass or mass-effect. CT chest was also obtained it demonstrated small area of scarring along the lateral left lung base with a calcified granuloma in the costophrenic angle similar to previous examina tion. There was nonspecific nodular focus in the lateral left upper lobe that measured 4 mm essentially no significant acute change demonstrated on the CT chest. More importantly blood work demonstrated elevated serum calcium, 11.9, the PSA, CEA were normal PTH was elevated, 168 suggesting that the hypercalcemia is PTH mediated consistent with primary hyperparathyroidism., There was also low serum sodium but the serum osmolality was normal suggesting this is pseudo- hyponatremia Past Medical History Cardiac Medical History: Reports: Atrial Fibrillation, Congestive Heart Failure, DVT, Hypertension Pulmonary Medical History: Reports: Pneumonia GI Medical History: Reports: Gastroesophageal Reflux Disease Past Surgical History Past Surgical History: Reports: Orthopedic Surgery Social History Smoking Status: Former Smoker Electronic Cigarette use?: No Number of Years Smokin Last Time Smoked: 2004 Frequency of Alcohol Use: None Hx Recreational Drug Use: No Drugs: None Hx Prescription Drug Abuse: No Family History Family History: Reviewed & Not Pertinent - Bacitracin Parental Family History Reviewed: Yes Children Family History Reviewed: Yes Sibling(s) Family History Reviewed.: Yes Medication/Allergy Home Medications: Digoxin [Lanoxin 0.25 mg Tablet] 0.25 mg PO DAILY 09/22/17 Finasteride [Proscar 5 mg Tablet] 5 mg PO DAILY 09/22/17 Lisinopril [Prinivil 10 mg Tablet] 10 mg PO DAILY 09/22/17 Tamsulosin HCl [Flomax 0.4 mg Cap.sr] 0.4 mg PO PCSUPPER 09/22/17 Simvastatin [Zocor 10 mg Tablet] 10 mg PO QHS #30 tablet 09/25/17 Amoxicillin/Potassium Clav [Amox-Clav 875-125 mg Tablet] 1 tab PO Q12 MDD filled 08/23 for 7 days 08/29/19 Duloxetine HCl 60 mg PO DAILY 08/29/19 Pregabalin 75 mg PO Q8 08/29/19 Aspirin [Ecotrin 81 mg EC Tablet] 81 mg PO DAILY 08/30/19 Diltiazem HCl [Diltiazem 24Hr ER (Cd)] 120 mg PO DAILY 08/30/19 Furosemide [Lasix 20 mg Tablet] 20 mg PO DAILY 08/30/19 Allergies/Adverse Reactions: Shellfish * Allergy (Intermediate, Verified 08/29/19 20:39) Facial swelling Review of Systems Constitutional: PRESENT: fatigue, weakness Eyes: ABSENT: visual disturbances Ears: ABSENT: hearing changes Cardiovascular: ABSENT: chest pain, dyspnea on exertion, edema, orthropnea, palpitations Respiratory: ABSENT: cough, hemoptysis Gastrointestinal: ABSENT: abdominal pain, constipation, diarrhea, hematemesis, hematochezia, nausea, vomiting Genitourinary: ABSENT: dysuria, hematuria Musculoskeletal: ABSENT: joint swelling Integumentary: ABSENT: rash, wounds Neurological: ABSENT: abnormal gait, abnormal speech, confusion, dizziness, focal weakness, syncope Psychiatric: ABSENT: anxiety, depression, homidical ideation, suicidal ideation Endocrine: ABSENT: cold intolerance, heat intolerance, menstrual abnormalities, polydipsia, polyuria Hematologic/Lymphatic: ABSENT: easy bleeding, easy bruising, lymphadenopathy Physical Exam Vital Signs: Temp Pulse Resp BP Pulse Ox 97.7 F 16 122/64 100 08/29/19 18:03 08/29/19 20:31 08/29/19 20:31 08/29/19 20:31 Intake & Output 08/28/19 08/29/19 08/30/19 06:59 06:59 06:59 Weight 76.8 kg General appearance: PRESENT: no acute distress Head exam: PRESENT: atraumatic, normocephalic Eye exam: PRESENT: conjunctiva pink, EOMI, PERRLA Ear exam: PRESENT: normal external ear exam Mouth exam: PRESENT: moist, tongue midline Neck exam: PRESENT: full ROM Respiratory exam: PRESENT: clear to auscultation etta, other - Has a large oblique scar posteriorly in the right thoracic area Cardiovascular exam: PRESENT: RRR, +S1, +S2 Vascular exam: PRESENT: other - Weak pulses at both feet GI/Abdominal exam: PRESENT: normal bowel sounds, soft Rectal exam: PRESENT: deferred Extremities exam: PRESENT: other - There is hyperpigmentation of the skin of the lower leg with severe onychomycosis of the nail throughout both feet the webspace is infected Neurological exam: PRESENT: alert, CN II-XII grossly intact Psychiatric exam: PRESENT: appropriate affect, normal mood Skin exam: PRESENT: intact Results Laboratory Results: 08/29/19 18:08/29/19 18:01 08/29/19 08/29/19 08/29/19 18:01 18:01 18:01 WBC 13.4 H RBC 4.95 Hgb 14.8 Hct 43.1 MCV 87 MCH 29.8 MCHC 34.2 RDW 14.5 H Plt Count 224 Seg Neutrophils % 80.8 H Sodium 128.8 L Potassium 4.8 Chloride 94 L Carbon Dioxide 31 H Anion Gap 4 L BUN 26 H Creatinine 1.14 Est GFR ( Amer) > 60 Glucose 112 H Serum Osmolality Calcium 11.9 H Magnesium 2.0 Total Bilirubin 0.9 AST 22 Alkaline Phosphatase 53 Total Protein 6.1 L Albumin 3.4 L Prostate Specific Ag Urine Color Urine Appearance Urine pH Ur Specific [place] Urine Protein Urine Glucose (UA) Urine Ketones Urine Blood Urine Nitrite Ur Leukocyte Esterase Urine WBC (Auto) Urine RBC (Auto) 08/29/19 08/29/19 08/29/19 18: 18:01 19:54 WBC RBC Hgb Hct MCV MCH MCHC RDW Plt Count Seg Neutrophils % Sodium Potassium Chloride Carbon Dioxide Anion Gap BUN Creatinine Est GFR ( Amer) Glucose Serum Osmolality 276 Calcium Magnesium Total Bilirubin AST Alkaline Phosphatase Total Protein Albumin Prostate Specific Ag 1.050 Urine Color MATEO Urine Appearance CLEAR Urine pH 5.0 Ur Specific [place] 1.024 Urine Protein NEGATIVE Urine Glucose (UA) NEGATIVE Urine Ketones NEGATIVE Urine Blood NEGATIVE Urine Nitrite NEGATIVE Ur Leukocyte Esterase NEGATIVE Urine WBC (Auto) 1 Urine RBC (Auto) 1 08/29/19 08/29/19 08/29/19 18:01 18:01 18:01 Creatine Kinase < 20 L CK-MB (CK-2) 1.88 Troponin I 0.033 NT-Pro-B Natriuret Pep 372 Impressions: Chest CT 08/29/19 00:00 IMPRESSION: Areas of scarring in the right hemithorax in regions of previous infiltrate on the examination from 2011 Vascular calcification in aorta and coronary arteries No evidence of acute process in the chest 4 mm nodule in the left upper lobe which could be followed in 12 months Additional chronic changes as above Chest X-Ray 08/29/19 18:51 IMPRESSION: No evidence of acute cardiopulmonary disease. Head CT 08/29/19 19:44 IMPRESSION: Scattered ectopic gas could be related to recent vascular access but is nonspecific. No other acute intracranial abnormality. Assessment & Plan - Diagnosis (1) Hypercalcemia Is this a current diagnosis for this admission?: Yes Plan: He has hypercalcemia, this is PTH mediated, start fluid therapy, patient is symptomatic with encephalopathic symptoms (2) Primary hyperparathyroidism Is this a current diagnosis for this admission?: Yes Plan: Order parathyroid nuclear medicine imaging (3) Onychomycosis Is this a current diagnosis for this admission?: Yes Plan: He has severe onychomycosis of both feet, I suspect he may have PAD, will order arterial Doppler (4) PAD (peripheral artery disease) Is this a current diagnosis for this admission?: Yes Plan: Pulses weak peripherally, patient may have PAD, order arterial Doppler
[2019-08-30 03:55] LABS: APPEARANCE,URINE SLIGHTLY-CLOUDY; BILIRUBIN,URINE NEGATIVE (NEGATIVE); COLOR,URINE YELLOW; GLUCOSE, URINE NEGATIVE (NEGATIVE); KETONES,URINE NEGATIVE (NEGATIVE); LEUKOCYTE ESTERASE,URINE MODERATE (NEGATIVE); NITRITE,URINE NEGATIVE (NEGATIVE); PROTEIN,URINE NEGATIVE (NEGATIVE); URINE SPECIFIC GRAVITY 1.023
[2019-08-30 04:17] LABS: URINE SODIUM 64 mmol/L (30-90)
[2019-08-30 04:30] LABS: OSMOLALITY,URINE 791 mOsm/kg (300-900)
[2019-08-30 05:28] LABS: ABSOLUTE BASOPHILS # (AUTO) 0.1 10^3/uL (0.0-0.2); ABSOLUTE EOSINOPHILS # (AUTO) 0.1 10^3/uL (0.0-0.6); ABSOLUTE LYMPHOCYTES (AUTO) 1.7 10^3/uL (0.5-4.7); ABSOLUTE NEUT (AUTO) 10.3 10^3/uL (1.7-8.2); BASOPHILS % (AUTO) 0.4 % (0-2); EOSINOPHILS % (AUTO) 0.4 % (0-6); HEMOGLOBIN 14.7 g/dL (13.5-17.0); MEAN CORPUSCULAR HEMOGLOBIN 29.7 pg (27.0-33.4); MEAN CORPUSCULAR HGB CONC 34.3 g/dL (32.0-36.0); MEAN CORPUSCULAR VOLUME 87 fl (80-97); MONOCYTES % (AUTO) 7.8 % (3-13); PLATELET COUNT 200 10^3/uL (150-450); RED BLOOD COUNT 4.95 10^6/uL (4.35-5.55); RED CELL DISTRIBUTION WIDTH 14.5 % (11.5-14.0); SEGMENTED NEUTROPHILS % (AUTO) 78.4 % (42-78); TOTAL CELLS COUNTED % (AUTO) 100 %; WHITE BLOOD COUNT 13.1 10^3/uL (4.0-10.5)
[2019-08-30 05:53] LABS: ALBUMIN 3.5 g/dL (3.5-5.0); ALKALINE PHOSPHATASE 60 U/L (38-126); ANION GAP 7 (5-19); ASPARTATE AMINO TRANSFERASE 23 U/L (17-59); BILIRUBIN,DIRECT 0.1 mg/dL (0.0-0.4); BILIRUBIN,TOTAL 0.8 mg/dL (0.2-1.3); BLOOD UREA NITROGEN 22 mg/dL (7-20); CALCIUM 11.9 mg/dL (8.4-10.2); CARBON DIOXIDE 27 mmol/L (22-30); CHLORIDE 96 mmol/L (98-107); GLUCOSE 80 mg/dL (75-110); TOTAL PROTEIN 6.4 g/dL (6.3-8.2)
[2019-08-30] MEDS: ENOXAPARIN SODIUM INJ 40 MG/0.4 ML DISP.SYRIN SUBCUT SCH (09:54)
[2019-08-30] MEDS: NORMAL SALINE 1000 ML 1,000 ML IV PRN ×2 (13:47→23:08)
[2019-08-30] MEDS ORDERED: (PENDING PHARMACY ID) (Duloxetine Hcl [Duloxetine Hcl] 60 MG) PO SCH (14:00)
--- NOTE | 2019-08-30 14:31 | PDOC PROGRESS REPORT ---
Subjective Progress Note for:: 08/30/19 Subjective:: Patient seen by the bedside, he was admitted yesterday when he presented with altered mental status associated with hypercalcemia, this is PTH mediated hypercalcemia, patient is more alert today answer question appropriately Reason For Visit: HYPERCALCEMIC ENCEPHALOPATHY,HYPONATREMIA Physical Exam Vital Signs: Temp Pulse Resp BP Pulse Ox 97.5 F 64 18 113/64 100 08/30/19 11:01 08/30/19 11:01 08/30/19 11:01 08/30/19 11:01 08/30/19 11:01 Intake & Output 08/29/19 08/30/19 08/31/19 06:59 06:59 06:59 Intake Total 411 796 Output Total 125 Balance 286 796 Weight 77.4 kg General appearance: PRESENT: no acute distress Eye exam: PRESENT: PERRLA Respiratory exam: PRESENT: clear to auscultation etta Cardiovascular exam: PRESENT: +S1, +S2 GI/Abdominal exam: PRESENT: soft Neurological exam: PRESENT: alert Results Laboratory Results: 08/30/19 04:55 08/30/19 04:55 08/29/19 08/29/19 08/29/19 18:01 18:01 18:01 WBC 13.4 H RBC 4.95 Hgb 14.8 Hct 43.1 MCV 87 MCH 29.8 MCHC 34.2 RDW 14.5 H Plt Count 224 Seg Neutrophils % 80.8 H Sodium 128.8 L Potassium 4.8 Chloride 94 L Carbon Dioxide 31 H Anion Gap 4 L BUN 26 H Creatinine 1.14 Est GFR ( Amer) > 60 Glucose 112 H Serum Osmolality Calcium 11.9 H Magnesium 2.0 Total Bilirubin 0.9 AST 22 Alkaline Phosphatase 53 Total Protein 6.1 L Albumin 3.4 L Prostate Specific Ag PTH Intact Urine Color Urine Appearance Urine pH Ur Specific [place] Urine Protein Urine Glucose (UA) Urine Ketones Urine Blood Urine Nitrite Ur Leukocyte Esterase Urine WBC (Auto) Urine RBC (Auto) Urine Osmolality 08/29/19 08/29/19 08/29/19 18:01 18:01 19:54 WBC RBC Hgb Hct MCV MCH MCHC RDW Plt Count Seg Neutrophils % Sodium Potassium Chloride Carbon Dioxide Anion Gap BUN Creatinine Est GFR ( Amer) Glucose Serum Osmolality 276 Calcium Magnesium Total Bilirubin AST Alkaline Phosphatase Total Protein Albumin Prostate Specific Ag 1.050 PTH Intact Urine Color MATEO Urine Appearance CLEAR Urine pH 5.0 Ur Specific [place] 1.024 Urine Protein NEGATIVE Urine Glucose (UA) NEGATIVE Urine Ketones NEGATIVE Urine Blood NEGATIVE Urine Nitrite NEGATIVE Ur Leukocyte Esterase NEGATIVE Urine WBC (Auto) 1 Urine RBC (Auto) 1 Urine Osmolality 08/29/19 08/30/19 08/30/19 21:54 02:50 02:50 WBC RBC Hgb Hct MCV MCH MCHC RDW Plt Count Seg Neutrophils % Sodium Potassium Chloride Carbon Dioxide Anion Gap BUN Creatinine Est GFR ( Amer) Glucose Serum Osmolality Calcium Magnesium Total Bilirubin AST Alkaline Phosphatase Total Protein Albumin Prostate Specific Ag PTH Intact 168.0 H Urine Color YELLOW Urine Appearance SLIGHTLY-CLOUDY Urine pH 5.0 Ur Specific [place] 1.023 Urine Protein NEGATIVE Urine Glucose (UA) NEGATIVE Urine Ketones NEGATIVE Urine Blood NEGATIVE Urine Nitrite NEGATIVE Ur Leukocyte Esterase MODERATE H Urine WBC (Auto) 109 Urine RBC (Auto) 1 Urine Osmolality 791 08/30/19 08/30/19 04:55 04:55 WBC 13.1 H RBC 4.95 Hgb 14.7 Hct 43.0 MCV 87 MCH 29.7 MCHC 34.3 RDW 14.5 H Plt Count 200 Seg Neutrophils % 78.4 H Sodium 129.8 L Potassium 5.0 Chloride 96 L Carbon Dioxide 27 Anion Gap 7 BUN 22 H Creatinine 0.91 Est GFR ( Amer) > 60 Glucose 80 Serum Osmolality Calcium 11.9 H Magnesium Total Bilirubin 0.8 AST 23 Alkaline Phosphatase 60 Total Protein 6.4 Albumin 3.5 Prostate Specific Ag PTH Intact Urine Color Urine Appearance Urine pH Ur Specific [place] Urine Protein Urine Glucose (UA) Urine Ketones Urine Blood Urine Nitrite Ur Leukocyte Esterase Urine WBC (Auto) Urine RBC (Auto) Urine Osmolality 08/29/19 08/29/19 08/29/19 18:01 18:01 18:01 Creatine Kinase < 20 L CK-MB (CK-2) 1.88 Troponin I 0.033 NT-Pro-B Natriuret Pep 372 Impressions: Chest CT 08/29/19 00:00 IMPRESSION: Areas of scarring in the right hemithorax in regions of previous infiltrate on the examination from 2011 Vascular calcification in aorta and coronary arteries No evidence of acute process in the chest 4 mm nodule in the left upper lobe which could be followed in 12 months Additional chronic changes as above Chest X-Ray 08/29/19 18:51 IMPRESSION: No evidence of acute cardiopulmonary disease. Head CT 08/29/19 19:44 IMPRESSION: Scattered ectopic gas could be related to recent vascular access but is nonspecific. No other acute intracranial abnormality. Assessment & Plan - Diagnosis (1) Hypercalcemia Is this a current diagnosis for this admission?: Yes Plan: Increase normal saline infusion rate 100 cc/h (2) Primary hyperparathyroidism Is this a current diagnosis for this admission?: Yes Plan: Order parathyroid imaging (3) Onychomycosis Is this a current diagnosis for this admission?: Yes Plan: Continue Lamisil (4) PAD (peripheral artery disease) Is this a current diagnosis for this admission?: Yes Plan: Order arterial Doppler - Time Time Spent with patient: 35 or more minutes Level of Care: IMCU Medications reviewed and adjusted accordingly: Yes
[2019-08-30] MEDS ORDERED: DIGOXIN 0.25 MG TABLET PO SCH (15:00)
--- NOTE | 2019-08-30 16:15 | RADIOLOGY REPORT (SQ) ---
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 TECHNIQUE: Dynamic and static maldonado scale and color images acquired of the lower extremity arteries. Additional selected spectral images recorded. LIMITATIONS: None. FINDINGS: RIGHT LEG: INFLOW ARTERIES: Normal, no obstruction evident. FEMORAL ARTERIES:Multiphasic waveforms. Normal, no velocity elevation to suggest focal stenosis. Norm al color Doppler evaluation. No aneurysm. POPLITEAL ARTERY:Multiphasic waveforms. Normal, no velocity elevation to suggest focal stenosis. Norm al color Doppler evaluation. No aneurysm. PATENT TIBIOPERONEAL TRUNK AND 3 VESSEL RUNOFF: Yes, normal vessels. OTHER: No other significant finding. LEFT LEG: INFLOW ARTERIES: Normal, no obstruction evident. FEMORAL ARTERIES:Multiphasic waveforms. Normal, no velocity elevation to suggest focal stenosis. Norm al color Doppler evaluation. No aneurysm. POPLITEAL ARTERY:Multiphasic waveforms. Normal, no velocity elevation to suggest focal stenosis. Norm al color Doppler evaluation. No aneurysm. PATENT TIBIOPERONEAL TRUNK AND 3 VESSEL RUNOFF: Yes, normal vessels. OTHER: No other significant finding. IMPRESSION: NORMAL BILATERAL LOWER EXTREMITY ARTERIAL DOPPLER. TECHNICAL DOCUMENTATION: JOB ID: [id number] 2010 [employer]- All Rights Reserved Reading location - IP/workstation name: [email or web address]
[2019-08-30] MEDS: TERBINAFINE HCL 250 MG TABLET PO SCH (16:53)
[2019-08-30] MEDS: DULOXETINE HCL 30 MG CAPSULE.DR PO SCH (16:54)
[2019-08-30] MEDS: DIGOXIN 0.25 MG TABLET PO SCH (16:54)
[2019-08-30] MEDS: FINASTERIDE 5 MG TABLET PO SCH (16:55)
[2019-08-30] MEDS: PREGABALIN 75 MG CAPSULE PO SCH ×2 (16:55→21:19)
[2019-08-30] MEDS: ASPIRIN 81 MG TABLET, ENT COATED PO SCH (16:55)
[2019-08-30] MEDS: DILTIAZEM HCL 120 MG CAP.SR.24H PO SCH (16:55)
[2019-08-30] MEDS: TAMSULOSIN HCL 0.4 MG CAP.SR.24H PO SCH (17:00)
[2019-08-31] MEDS: PREGABALIN 75 MG CAPSULE PO SCH ×3 (05:52→23:03)
[2019-08-31 06:00] LABS: ABSOLUTE BASOPHILS # (AUTO) 0.1 10^3/uL (0.0-0.2); ABSOLUTE EOSINOPHILS # (AUTO) 0.2 10^3/uL (0.0-0.6); ABSOLUTE MONOCYTES (AUTO) 0.8 10^3/uL (0.1-1.4); ABSOLUTE NEUT (AUTO) 6.3 10^3/uL (1.7-8.2); EOSINOPHILS % (AUTO) 1.7 % (0-6); HEMATOCRIT 39.3 % (37.9-51.0); HEMOGLOBIN 13.6 g/dL (13.5-17.0); LYMPHOCYTES % (AUTO) 21.5 % (13-45); MEAN CORPUSCULAR HEMOGLOBIN 30.2 pg (27.0-33.4); MEAN CORPUSCULAR HGB CONC 34.7 g/dL (32.0-36.0); MEAN CORPUSCULAR VOLUME 87 fl (80-97); MONOCYTES % (AUTO) 8.7 % (3-13); PLATELET COUNT 183 10^3/uL (150-450); RED BLOOD COUNT 4.51 10^6/uL (4.35-5.55); RED CELL DISTRIBUTION WIDTH 14.4 % (11.5-14.0); SEGMENTED NEUTROPHILS % (AUTO) 67.1 % (42-78); TOTAL CELLS COUNTED % (AUTO) 100 %; WHITE BLOOD COUNT 9.4 10^3/uL (4.0-10.5)
[2019-08-31 08:51] LABS: BLOOD UREA NITROGEN 15 mg/dL (7-20); CALCIUM 11.4 mg/dL (8.4-10.2); CARBON DIOXIDE 28 mmol/L (22-30); CHLORIDE 98 mmol/L (98-107); POTASSIUM 4.7 mmol/L (3.6-5.0)
[2019-08-31 08:56] LABS: GLUCOSE 69 mg/dL (75-110)
[2019-08-31 09:07] LABS: ANION GAP 3 (5-19)
[2019-08-31] MEDS: DILTIAZEM HCL 120 MG CAP.SR.24H PO SCH (09:17)
[2019-08-31] MEDS: CEFTRIAXONE 1 GM/D5W RTU 1 GM/50 ML RTUPB IV SCH (09:17)
[2019-08-31] MEDS: FUROSEMIDE 20 MG TABLET PO SCH (09:17)
[2019-08-31] MEDS: ASPIRIN 81 MG TABLET, ENT COATED PO SCH (09:17)
[2019-08-31] MEDS: DULOXETINE HCL 30 MG CAPSULE.DR PO SCH (09:17)
[2019-08-31] MEDS: TERBINAFINE HCL 250 MG TABLET PO SCH (09:17)
[2019-08-31] MEDS: FINASTERIDE 5 MG TABLET PO SCH (09:18)
[2019-08-31] MEDS: ENOXAPARIN SODIUM INJ 40 MG/0.4 ML DISP.SYRIN SUBCUT SCH (09:18)
[2019-08-31] MEDS: NORMAL SALINE 1000 ML 1,000 ML IV PRN ×2 (09:18→23:03)
[2019-08-31] MEDS: DIGOXIN 0.25 MG TABLET PO SCH (09:33)
[2019-08-31] MEDS ORDERED: LISINOPRIL 10 MG TABLET PO SCH (10:00)
[2019-08-31] MEDS ORDERED: ATROPINE SULFATE INJ 1 MG/10 ML DISP.SYRIN IV ONE ×5 (12:33→22:15)
[2019-08-31] MEDS: TAMSULOSIN HCL 0.4 MG CAP.SR.24H PO SCH (17:03)
--- NOTE | 2019-08-31 19:10 | EKG REPORT ---
SEVERITY:- ABNORMAL ECG - ATRIAL FIBRILLATION, V-RATE 61-92 : Confirmed by: Troy Kenney MD 31-Aug-2019 19:09:52
--- NOTE | 2019-08-31 19:28 | PDOC PROGRESS REPORT ---
Subjective Progress Note for:: 08/31/19 Subjective:: Patient continue to demonstrate intermittent confusion. He declined parathyroid scan as schedule earlier this morning. He demonstrated episodes of bradycardia with somnolence after administration of Cardizem and Digoxin for the management of his atrial fibrillation with variable heart rate. There was some response to IV Atropine administration. At the time of my bedside evaluation he was arousable and appropriate in place orientation. Reason For Visit: HYPERCALCEMIC ENCEPHALOPATHY,HYPONATREMIA Physical Exam Vital Signs: Temp Pulse Resp BP Pulse Ox 97.5 F 60 16 135/60 H 100 08/31/19 03:39 08/31/19 07:00 08/31/19 03:39 08/31/19 03:39 08/31/19 03:39 Intake & Output 08/30/19 08/31/19 09/01/19 06:59 06:59 06:59 Intake Total 411 2472 Output Total 125 225 Balance 286 2247 Weight 77.4 kg 80 kg General appearance: PRESENT: no acute distress, disheveled Head exam: PRESENT: atraumatic, normocephalic Eye exam: PRESENT: conjunctiva pink. ABSENT: scleral icterus Mouth exam: PRESENT: dry mucosa Neck exam: ABSENT: lymphadenopathy, tenderness, thyromegaly Respiratory exam: PRESENT: decreased breath sounds - at lung bases Cardiovascular exam: PRESENT: bradycardia, irregular rhythm, +S1, +S2 Vascular exam: ABSENT: pallor GI/Abdominal exam: PRESENT: normal bowel sounds, soft. ABSENT: distended, guar ding, mass, organolmegaly, rebound, tenderness Extremities exam: ABSENT: pedal edema Musculoskeletal exam: PRESENT: deformity Neurological exam: PRESENT: altered, oriented to place Skin exam: PRESENT: dry, warm Results Laboratory Results: 08/31/19 05:15 08/30/19 04:55 08/31/19 05:15 WBC 9.4 RBC 4.51 Hgb 13.6 Hct 39.3 MCV 87 MCH 30.2 MCHC 34.7 RDW 14.4 H Plt Count 183 Seg Neutrophils % 67.1 08/29/19 08/29/19 08/29/19 18:01 18:01 18:01 Creatine Kinase < 20 L CK-MB (CK-2) 1.88 Troponin I 0.033 NT-Pro-B Natriuret Pep 372 Impressions: Chest CT 08/29/19 00:00 IMPRESSION: Areas of scarring in the right hemithorax in regions of previous infiltrate on the examination from 2012 Vascular calcification in aorta and coronary arteries No evidence of acute process in the chest 4 mm nodule in the left upper lobe which could be followed in 12 months Additional chronic changes as above Chest X-Ray 08/29/19 18:51 IMPRESSION: No evidence of acute cardiopulmonary disease. Head CT 08/29/19 19:44 IMPRESSION: Scattered ectopic gas could be related to recent vascular access but is nonspecific. No other acute intracranial abnormality. Lower Extremity Ultrasound 08/30/19 00:00 IMPRESSION: NORMAL BILATERAL LOWER EXTREMITY ARTERIAL DOPPLER. Assessment & Plan - Diagnosis (1) Encephalopathy, metabolic Is this a current diagnosis for this admission?: Yes Plan: Maintain on gentle IV hydration. His hypercalcemia may be a contributing factor but low heart rate and blood pressure are compounding. (2) Hypercalcemia Is this a current diagnosis for this admission?: Yes Plan: Maintain on normal saline infusion. His Furosemide may be counter intuitive but will help with hypercalcemia. (3) Hyponatremia Is this a current diagnosis for this admission?: Yes Plan: Continue IV fluid support and Lasix therapy. (4) Primary hyperparathyroidism Is this a current diagnosis for this admission?: Yes Plan: We will continue effort to obtain parathyroid scan evaluation. I will discuss consent with his family in view of his altered mental status. (5) Chronic atrial fibrillation Is this a current diagnosis for this admission?: Yes Plan: We will hold his Cardizem and Digoxin for heart rate less 90 / min and SBP less than 130 mmHg. Patient received two doses of IV Atropine. I will request cardiology consultation if his bradycardia persist. (6) HTN (hypertension) Qualifiers: Hypertension type: essential hypertension Qualified Code(s): I10 - Essential (primary) hypertension Is this a current diagnosis for this admission?: Yes Plan: Continue Lisinopril therapy for SBP > 140mmHg. Maintain on other current medication management. (7) BPH (benign prostatic hypertrophy) with urinary obstruction Is this a current diagnosis for this admission?: Yes Plan: Continue current medication management. (8) Sarcoma of right lower extremity Is this a current diagnosis for this admission?: Yes Plan: His chest CT scan was suggestive of 4mm nodular lesion in the left upper lobe that warrant 12 months follow up evaluation. Questionable contribution to his hyponatremia. - Time Time Spent with patient: 25-34 minutes Level of Care: IMCU Medications reviewed and adjusted accordingly: Yes Anticipated discharge: Home with Homehealth Within: Other - Inpatient Certification Based on my medical assessment, after consideration of the patient's comorbidities, presenting symptoms, or acuity I expect that the services needed warrant INPATIENT care.: Yes I certify that my determination is in accordance with my understanding of Medicare's requirements for reasonable and necessary INPATIENT services [42 CFR 412.3e].: Yes Medical Necessity: Significant Comorbidiites Make Outpatient Treatment Too Risky, Need Close Monitoring Due to Risk of Patient Decompensation, Need For IV Fluids, Need For Continuous Telemetry Monitoring, Need for IV Antibiotics, Need for Surgery, Risk of Diagnosis Which Will Require Inpatient Eval/Care/Monitoring Post Hospital Care: D/C Toll Gate Keeper Documentation - Plan Summary Plan Summary: Continue outline care plan. Obtain CMP, CBC with diff in AM. Follow up on culture findings. I will D/C Terbinafine for now in view of his ongoing complicated medical condition.
[2019-09-01] MEDS: PREGABALIN 75 MG CAPSULE PO SCH ×3 (06:03→21:21)
[2019-09-01 06:53] LABS: ABSOLUTE BASOPHILS # (AUTO) 0.1 10^3/uL (0.0-0.2); ABSOLUTE EOSINOPHILS # (AUTO) 0.1 10^3/uL (0.0-0.6); ABSOLUTE LYMPHOCYTES (AUTO) 1.4 10^3/uL (0.5-4.7); ABSOLUTE MONOCYTES (AUTO) 0.7 10^3/uL (0.1-1.4); ABSOLUTE NEUT (AUTO) 7.5 10^3/uL (1.7-8.2); BASOPHILS % (AUTO) 0.7 % (0-2); EOSINOPHILS % (AUTO) 1.2 % (0-6); HEMATOCRIT 38.8 % (37.9-51.0); HEMOGLOBIN 13.5 g/dL (13.5-17.0); LYMPHOCYTES % (AUTO) 14.4 % (13-45); MEAN CORPUSCULAR HEMOGLOBIN 30.2 pg (27.0-33.4); MEAN CORPUSCULAR HGB CONC 34.8 g/dL (32.0-36.0); MEAN CORPUSCULAR VOLUME 87 fl (80-97); MONOCYTES % (AUTO) 7.3 % (3-13); PLATELET COUNT 200 10^3/uL (150-450); RED BLOOD COUNT 4.47 10^6/uL (4.35-5.55); RED CELL DISTRIBUTION WIDTH 14.9 % (11.5-14.0); SEGMENTED NEUTROPHILS % (AUTO) 76.4 % (42-78); TOTAL CELLS COUNTED % (AUTO) 100 %; WHITE BLOOD COUNT 9.9 10^3/uL (4.0-10.5)
[2019-09-01] MEDS: NORMAL SALINE 1000 ML 1,000 ML IV PRN ×2 (07:56→21:22)
[2019-09-01] MEDS: ASPIRIN 81 MG TABLET, ENT COATED PO SCH (09:44)
[2019-09-01] MEDS: FINASTERIDE 5 MG TABLET PO SCH (09:44)
[2019-09-01] MEDS: DULOXETINE HCL 30 MG CAPSULE.DR PO SCH (09:44)
[2019-09-01] MEDS: FUROSEMIDE 20 MG TABLET PO SCH (09:44)
[2019-09-01] MEDS: ENOXAPARIN SODIUM INJ 40 MG/0.4 ML DISP.SYRIN SUBCUT SCH (09:45)
[2019-09-01] MEDS: LISINOPRIL 10 MG TABLET PO SCH (09:45)
[2019-09-01] MEDS: DILTIAZEM HCL 120 MG CAP.SR.24H PO SCH (09:50)
[2019-09-01] MEDS: DIGOXIN 0.125 MG TABLET PO SCH (09:50)
[2019-09-01] MEDS: CEFTRIAXONE 1 GM/D5W RTU 1 GM/50 ML RTUPB IV SCH (09:50)
[2019-09-01] MEDS ORDERED: DILTIAZEM HCL 120 MG CAP.SR.24H PO SCH (10:00)
--- NOTE | 2019-09-01 14:39 | RADIOLOGY REPORT (SQ) ---
EXAM DESCRIPTION: NM PARATHYROID IMAGING IMAGES COMPLETED DATE/TIME: 09/01/2019 2:04 pm REASON FOR STUDY: Hypercalcemia with elevated intact PTH and AMS J44.9 CHRONIC OBSTRUCTIVE PULMONAR Y DISEASE, UNSPECIFIED C61 MALIGNANT NEOPLASM OF PROSTATE N39.0 URINARY TRACT INFECTION, SITE NOT S PECIFIED COMPARISON: None. RADIONUCLIDE AND DOSE: 21.1 millicuries Tc-99m Sestamibi. The route of agent administration: Intravenous ADDITIONAL DRUGS AND DOSES: None. TECHNIQUE: Early and delayed images of the neck acquired following radionuclide administration. LIMITATIONS: None. FINDINGS: Thyroid: Normal size. Homogeneous activity. Normal washout. No focal lesions. Parathyroid: Persistent retained activity in the lower pole of the right lobe on delayed imaging. Other: No other significant findings. IMPRESSION: PERSISTENT ACTIVITY IN THE LOWER POLE OF THE RIGHT LOBE OF THE THYROID CONSISTENT WITH A PARATHYROID ADENOMA. TECHNICAL DOCUMENTATION: JOB ID: [id number] 2010 [employer]- All Rights Reserved Reading location - IP/workstation name: [email or web address]
[2019-09-01] MEDS: TAMSULOSIN HCL 0.4 MG CAP.SR.24H PO SCH (17:02)
--- NOTE | 2019-09-01 19:28 | PDOC PROGRESS REPORT ---
Subjective Progress Note for:: 09/01/19 Subjective:: Patient is more lucid and engaging today. Self feeding at the time of my bedside visit. He denied any chest pain or difficulty with breathing. no reported fever or chills. No abdominal pain, nausea or vomiting. Reason For Visit: HYPERCALCEMIC ENCEPHALOPATHY,HYPONATREMIA Physical Exam Vital Signs: Temp Pulse Resp BP Pulse Ox 97.3 F 96 18 117/39 L 100 09/01/19 16:37 09/01/19 16:37 09/01/19 16:37 09/01/19 16:37 09/01/19 16:37 Intake & Output 08/31/19 09/01/19 09/02/19 06:59 06:59 06:59 Intake Total 2472 2830 1025 Output Total 225 275 Balance 2247 2555 1025 Weight 80 kg 78.5 kg Physical Exam: General appearance: PRESENT: no acute distress, disheveled Head exam: PRESENT: atraumatic, normocephalic Eye exam: PRESENT: conjunctiva pink. ABSENT: pallor, scleral icterus Mouth exam: PRESENT: dry mucosa Neck exam: ABSENT: lymphadenopathy, tenderness, thyromegaly Respiratory exam: PRESENT: decreased breath sounds - at lung bases Cardiovascular exam: PRESENT: irregular rhythm, +S1, +S2 GI/Abdominal exam: PRESENT: normal bowel sounds, soft. ABSENT: distended, guarding, mass, organomegaly, rebound, tenderness Extremities exam: ABSENT: pedal edema Musculoskeletal exam: PRESENT: deformity Neurological exam: PRESENT: altered, oriented to place Skin exam: PRESENT: dry, warm Results Laboratory Results: 09/01/19 05:31 08/31/19 05:15 09/01/19 05:31 WBC 9.9 RBC 4.47 Hgb 13.5 Hct 38.8 MCV 87 MCH 30.2 MCHC 34.8 RDW 14.9 H Plt Count 200 Seg Neutrophils % 76.4 08/30/19 02:50 Clean Catch Midstream Urine Culture - Final Mixed Urogenital Kiki 08/29/19 08/29/19 08/29/19 18:01 18:01 18:01 Creatine Kinase < 20 L CK-MB (CK-2) 1.88 Troponin I 0.033 NT-Pro-B Natriuret Pep 372 Impressions: Chest CT 08/29/19 00:00 IMPRESSION: Areas of scarring in the right hemithorax in regions of previous infiltrate on the examination from 2012 Vascular calcification in aorta and coronary arteries No evidence of acute process in the chest 4 mm nodule in the left upper lobe which could be followed in 12 months Additional chronic changes as above Chest X-Ray 08/29/19 18:51 IMPRESSION: No evidence of acute cardiopulmonary disease. Head CT 08/29/19 19:44 IMPRESSION: Scattered ectopic gas could be related to recent vascular access but is nonspecific. No other acute intracranial abnormality. Lower Extremity Ultrasound 08/30/19 00:00 IMPRESSION: NORMAL BILATERAL LOWER EXTREMITY ARTERIAL DOPPLER. Parathyroid Scan Nuclear Medicine 09/01/19 08:00 IMPRESSION: PERSISTENT ACTIVITY IN THE LOWER POLE OF THE RIGHT LOBE OF THE THYROID CONSISTENT WITH A PARATHYROID ADENOMA. Assessment & Plan - Diagnosis (1) Encephalopathy, metabolic Is this a current diagnosis for this admission?: Yes (2) Hypercalcemia Is this a current diagnosis for this admission?: Yes (3) Hyponatremia Is this a current diagnosis for this admission?: Yes (4) Primary hyperparathyroidism Is this a current diagnosis for this admission?: Yes Plan: Patient demonstrated increase activity in right thyroid lower lobe region consistent with parathyroid adenoma. Obtain 24 hours urine calcium level, ionized calcium and 25 (OH) Vitamin D level. (5) Chronic atrial fibrillation Is this a current diagnosis for this admission?: Yes (6) HTN (hypertension) Qualifiers: Hypertension type: essential hypertension Qualified Code(s): I10 - Essential (primary) hypertension Is this a current diagnosis for this admission?: Yes (7) BPH (benign prostatic hypertrophy) with urinary obstruction Is this a current diagnosis for this admission?: Yes (8) Sarcoma of right lower extremity Is this a current diagnosis for this admission?: Yes - Time Time Spent with patient: 25-34 minutes Level of Care: IMCU Medications reviewed and adjusted accordingly: Yes Anticipated discharge: Home with Homehealth Within: Other - Inpatient Certification Based on my medical assessment, after consideration of the patient's comorbidities, presenting symptoms, or acuity I expect that the services needed warrant INPATIENT care.: Yes I certify that my determination is in accordance with my understanding of Medicare's requirements for reasonable and necessary INPATIENT services [42 CFR 412.3e].: Yes Medical Necessity: Significant Comorbidiites Make Outpatient Treatment Too Risky, Need Close Monitoring Due to Risk of Patient Decompensation, Need For IV Fluids, Need For Continuous Telemetry Monitoring, Need for IV Antibiotics, Risk of Complication if Not Cared For in Hospital, Risk of Diagnosis Which Will Require Inpatient Eval/Care/Monitoring Post Hospital Care: D/C Cloud Systems Administrator 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 I will discuss NM parathyroid scan finding with patient and family. Considering his age and morbidities he is not a candidate for surgical intervention.
[2019-09-02] MEDS: PREGABALIN 75 MG CAPSULE PO SCH ×3 (05:48→21:13)
[2019-09-02] MEDS: NORMAL SALINE 1000 ML 1,000 ML IV PRN ×2 (07:41→17:17)
[2019-09-02] MEDS: FUROSEMIDE 20 MG TABLET PO SCH (09:29)
[2019-09-02] MEDS: FINASTERIDE 5 MG TABLET PO SCH (09:29)
[2019-09-02] MEDS: DULOXETINE HCL 30 MG CAPSULE.DR PO SCH (09:29)
[2019-09-02] MEDS: ASPIRIN 81 MG TABLET, ENT COATED PO SCH (09:29)
[2019-09-02] MEDS: CEFTRIAXONE 1 GM/D5W RTU 1 GM/50 ML RTUPB IV SCH (09:29)
[2019-09-02] MEDS: ENOXAPARIN SODIUM INJ 40 MG/0.4 ML DISP.SYRIN SUBCUT SCH (09:29)
[2019-09-02] MEDS: DILTIAZEM HCL 120 MG CAP.SR.24H PO SCH (09:31)
[2019-09-02] MEDS: LISINOPRIL 10 MG TABLET PO SCH (09:31)
[2019-09-02] MEDS: DIGOXIN 0.125 MG TABLET PO SCH (09:32)
[2019-09-02] MEDS: TAMSULOSIN HCL 0.4 MG CAP.SR.24H PO SCH (17:17)
--- NOTE | 2019-09-02 19:45 | PDOC PROGRESS REPORT ---
Subjective Progress Note for:: 09/02/19 Subjective:: Patient is self feeding at breakfast at the time of my bedside visit today. He is more appropriate in his engagement. No chest pain or difficulty with breathing. No reported fever or chills. No abdominal pain, nausea or vomiting. Reason For Visit: HYPERCALCEMIC ENCEPHALOPATHY,HYPONATREMIA Physical Exam Vital Signs: Temp Pulse Resp BP Pulse Ox 97.6 F 66 16 134/75 H 99 09/02/19 16:16 09/02/19 16:16 09/02/19 16:16 09/02/19 16:16 09/02/19 16:16 Intake & Output 09/01/19 09/02/19 09/03/19 06:59 06:59 06:59 Intake Total 2830 2178 1932 Output Total 275 350 700 Balance 2555 1828 1232 Weight 78.5 kg 82.6 kg Physical Exam: General appearance: PRESENT: no acute distress, disheveled Head exam: PRESENT: atraumatic, normocephalic Eye exam: PRESENT: conjunctiva pink. ABSENT: pallor, scleral icterus Mouth exam: PRESENT: dry mucosa Neck exam: ABSENT: lymphadenopathy, tenderness, thyromegaly Respiratory exam: PRESENT: decreased breath sounds - at lung bases Cardiovascular exam: PRESENT: irregular rhythm, +S1, +S2 GI/Abdominal exam: PRESENT: normal bowel sounds, soft. ABSENT: distended, guarding, mass, organomegaly, rebound, tenderness : Condom catheter in use for 24 hours urine calcium collection. Extremities exam: ABSENT: pedal edema Musculoskeletal exam: PRESENT: deformity Neurological exam: PRESENT: altered, oriented to place Skin exam: PRESENT: dry, warm Results Laboratory Results: 09/01/19 05:31 08/31/19 05:15 09/01/19 19:59 Ionized Calcium Calixto 1.42 H 08/29/19 08/29/19 08/29/19 18:01 18:01 18:01 Creatine Kinase < 20 L CK-MB (CK-2) 1.88 Troponin I 0.033 NT-Pro-B Natriuret Pep 372 Impressions: Chest CT 08/29/19 00:00 IMPRESSION: Areas of scarring in the right hemithorax in regions of previous infiltrate on the examination from 2011 Vascular calcification in aorta and coronary arteries No evidence of acute process in the chest 4 mm nodule in the left upper lobe which could be followed in 12 months Additional chronic changes as above Chest X-Ray 08/29/19 18:51 IMPRESSION: No evidence of acute cardiopulmonary disease. Head CT 08/29/19 19:44 IMPRESSION: Scattered ectopic gas could be related to recent vascular access but is nonspecific. No other acute intracranial abnormality. Lower Extremity Ultrasound 08/30/19 00:00 IMPRESSION: NORMAL BILATERAL LOWER EXTREMITY ARTERIAL DOPPLER. Parathyroid Scan Nuclear Medicine 09/01/19 08:00 IMPRESSION: PERSISTENT ACTIVITY IN THE LOWER POLE OF THE RIGHT LOBE OF THE THYROID CONSISTENT WITH A PARATHYROID ADENOMA. Assessment & Plan - Diagnosis (1) Encephalopathy, metabolic Is this a current diagnosis for this admission?: Yes (2) Hypercalcemia Is this a current diagnosis for this admission?: Yes (3) Hyponatremia Is this a current diagnosis for this admission?: Yes (4) Primary hyperparathyroidism Is this a current diagnosis for this admission?: Yes (5) Chronic atrial fibrillation Is this a current diagnosis for this admission?: Yes (6) HTN (hypertension) Qualifiers: Hypertension type: essential hypertension Qualified Code(s): I10 - Essential (primary) hypertension Is this a current diagnosis for this admission?: Yes (7) BPH (benign prostatic hypertrophy) with urinary obstruction Is this a current diagnosis for this admission?: Yes (8) Sarcoma of right lower extremity Is this a current diagnosis for this admission?: Yes (9) Vitamin D deficiency Is this a current diagnosis for this admission?: Yes Plan: Patient will need cautious vitamin D replacement in view of his hypercalcemia and primary hyperparathyroidism. Obtain CMP. - Time Time Spent with patient: 25-34 minutes Level of Care: IMCU Medications reviewed and adjusted accordingly: Yes Anticipated discharge: Home with Homehealth Within: Other - Inpatient Certification Based on my medical assessment, after consideration of the patient's comorbidities, presenting symptoms, or acuity I expect that the services needed warrant INPATIENT care.: Yes I certify that my determination is in accordance with my understanding of Medicare's requirements for reasonable and necessary INPATIENT services [42 CFR 412.3e].: Yes Medical Necessity: Significant Comorbidiites Make Outpatient Treatment Too Risky, Need Close Monitoring Due to Risk of Patient Decompensation, Need For IV Fluids, Need For Continuous Telemetry Monitoring, Need for IV Antibiotics, Risk of Complication if Not Cared For in Hospital, Risk of Diagnosis Which Will Require Inpatient Eval/Care/Monitoring Post Hospital Care: D/C Religious Leader 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 Follow up on 24 hours urine calcium evaluation to decide on his vitamin D replacement care plan.
[2019-09-02 20:36] LABS: ALBUMIN 2.9 g/dL (3.5-5.0); ALKALINE PHOSPHATASE 49 U/L (38-126); ASPARTATE AMINO TRANSFERASE 32 U/L (17-59); BILIRUBIN,TOTAL 0.3 mg/dL (0.2-1.3); BLOOD UREA NITROGEN 13 mg/dL (7-20); CALCIUM 10.4 mg/dL (8.4-10.2); GLUCOSE 97 mg/dL (75-110); POTASSIUM 4.3 mmol/L (3.6-5.0); TOTAL PROTEIN 5.5 g/dL (6.3-8.2)
[2019-09-02 20:46] LABS: ANION GAP 4 (5-19); CHLORIDE 100 mmol/L (98-107)
[2019-09-02 20:47] LABS: CARBON DIOXIDE 27 mmol/L (22-30)
[2019-09-03] MEDS: NORMAL SALINE 1000 ML 1,000 ML IV PRN ×2 (03:13→14:40)
[2019-09-03] MEDS: PREGABALIN 75 MG CAPSULE PO SCH ×3 (05:22→21:04)
[2019-09-03] MEDS: ENOXAPARIN SODIUM INJ 40 MG/0.4 ML DISP.SYRIN SUBCUT SCH (10:29)
[2019-09-03] MEDS: FINASTERIDE 5 MG TABLET PO SCH (10:30)
[2019-09-03] MEDS: LISINOPRIL 10 MG TABLET PO SCH (10:30)
[2019-09-03] MEDS: FUROSEMIDE 20 MG TABLET PO SCH (10:30)
[2019-09-03] MEDS: DIGOXIN 0.125 MG TABLET PO SCH (10:30)
[2019-09-03] MEDS: DILTIAZEM HCL 120 MG CAP.SR.24H PO SCH (10:31)
[2019-09-03] MEDS: DULOXETINE HCL 30 MG CAPSULE.DR PO SCH (10:31)
[2019-09-03] MEDS: ASPIRIN 81 MG TABLET, ENT COATED PO SCH (10:31)
[2019-09-03] MEDS: CEFTRIAXONE 1 GM/D5W RTU 1 GM/50 ML RTUPB IV SCH (10:31)
[2019-09-03] MEDS: TAMSULOSIN HCL 0.4 MG CAP.SR.24H PO SCH (17:42)
--- NOTE | 2019-09-03 18:02 | PDOC PROGRESS REPORT ---
Subjective Progress Note for:: 09/03/19 Subjective:: Patient denied any chest pain or difficulty with breathing. No fever or chills. No abdominal pain, nausea or vomiting. His collected 24 hours urine was discarded due to late delivery to the lab! He is currently undergoing another attempt at collection. Reason For Visit: HYPERCALCEMIC ENCEPHALOPATHY,HYPONATREMIA Physical Exam Vital Signs: Temp Pulse Resp BP Pulse Ox 97.3 F 51 L 18 100/42 L 99 09/03/19 16:33 09/03/19 16:33 09/03/19 16:33 09/03/19 16:33 09/03/19 16:33 Intake & Output 09/02/19 09/03/19 09/04/19 06:59 06:59 06:59 Intake Total 2178 3445 1509 Output Total 350 1475 400 Balance 1828 1970 1109 Weight 82.6 kg 79.5 kg 79.5 kg Physical Exam: General appearance: PRESENT: no acute distress, disheveled Head exam: PRESENT: atraumatic, normocephalic Eye exam: PRESENT: conjunctiva pink. ABSENT: pallor, scleral icterus Mouth exam: PRESENT: dry mucosa Neck exam: ABSENT: lymphadenopathy, tenderness, thyromegaly Respiratory exam: PRESENT: decreased breath sounds - at lung bases Cardiovascular exam: PRESENT: irregular rhythm, +S1, +S2 GI/Abdominal exam: PRESENT: normal bowel sounds, soft. ABSENT: distended, guarding, mass, organomegaly, rebound, tenderness : Condom catheter in use for 24 hours urine calcium collection. Extremities exam: ABSENT: pedal edema Musculoskeletal exam: PRESENT: deformity Neurological exam: PRESENT: altered, oriented to place Skin exam: PRESENT: dry, warm Results Laboratory Results: 09/01/19 05:31 09/02/19 20:11 09/02/19 20:11 Sodium 131.2 L Potassium 4.3 Chloride 100 Carbon Dioxide 27 Anion Gap 4 L BUN 13 Creatinine 1.00 Est GFR ( Amer) > 60 Glucose 97 Calcium 10.4 H Total Bilirubin 0.3 AST 32 Alkaline Phosphatase 49 Total Protein 5.5 L Albumin 2.9 L 08/29/19 08/29/19 08/29/19 18:01 18:01 18:01 Creatine Kinase < 20 L CK-MB (CK-2) 1.88 Troponin I 0.033 NT-Pro-B Natriuret Pep 372 Impressions: Chest CT 08/29/19 00:00 IMPRESSION: Areas of scarring in the right hemithorax in regions of previous infiltrate on the examination from 2012 Vascular calcification in aorta and coronary arteries No evidence of acute process in the chest 4 mm nodule in the left upper lobe which could be followed in 12 months Additional chronic changes as above Chest X-Ray 08/29/19 18:51 IMPRESSION: No evidence of acute cardiopulmonary disease. Head CT 08/29/19 19:44 IMPRESSION: Scattered ectopic gas could be related to recent vascular access but is nonspecific. No other acute intracranial abnormality. Lower Extremity Ultrasound 08/30/19 00:00 IMPRESSION: NORMAL BILATERAL LOWER EXTREMITY ARTERIAL DOPPLER. Parathyroid Scan Nuclear Medicine 09/01/19 08:00 IMPRESSION: PERSISTENT ACTIVITY IN THE LOWER POLE OF THE RIGHT LOBE OF THE THYROID CONSISTENT WITH A PARATHYROID ADENOMA. Assessment & Plan - Diagnosis (1) Encephalopathy, metabolic Is this a current diagnosis for this admission?: Yes (2) Hypercalcemia Is this a current diagnosis for this admission?: Yes (3) Hyponatremia Is this a current diagnosis for this admission?: Yes (4) Primary hyperparathyroidism Is this a current diagnosis for this admission?: Yes (5) Chronic atrial fibrillation Is this a current diagnosis for this admission?: Yes (6) HTN (hypertension) Qualifiers: Hypertension type: essential hypertension Qualified Code(s): I10 - Essential (primary) hypertension Is this a current diagnosis for this admission?: Yes (7) BPH (benign prostatic hypertrophy) with urinary obstruction Is this a current diagnosis for this admission?: Yes (8) Sarcoma of right lower extremity Is this a current diagnosis for this admission?: Yes (9) Vitamin D deficiency Is this a current diagnosis for this admission?: Yes Plan: I will hold off starting vitamin D replacement therapy until his urine calcium result is known. In the presence of primary hyperparathyroidism he is at incre ase risk for kidney stone formation. - Time Time Spent with patient: 25-34 minutes Level of Care: IMCU Medications reviewed and adjusted accordingly: Yes Anticipated discharge: Home with Homehealth Within: Other - Inpatient Certification Based on my medical assessment, after consideration of the patient's comorbidities, presenting symptoms, or acuity I expect that the services needed warrant INPATIENT care.: Yes I certify that my determination is in accordance with my understanding of Medicare's requirements for reasonable and necessary INPATIENT services [42 CFR 412.3e].: Yes Medical Necessity: Significant Comorbidiites Make Outpatient Treatment Too Risky, Need Close Monitoring Due to Risk of Patient Decompensation, Need For IV Fluids, Need For Continuous Telemetry Monitoring, Risk of Complication if Not Cared For in Hospital, Risk of Diagnosis Which Will Require Inpatient Eval/Care/Monitoring 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 Follow up on 24 hours urine calcium level result.
[2019-09-04] MEDS: NORMAL SALINE 1000 ML 1,000 ML IV PRN ×2 (02:59→14:45)
[2019-09-04] MEDS: PREGABALIN 75 MG CAPSULE PO SCH ×3 (05:54→21:26)
[2019-09-04] MEDS: ASPIRIN 81 MG TABLET, ENT COATED PO SCH (09:50)
[2019-09-04] MEDS: DILTIAZEM HCL 120 MG CAP.SR.24H PO SCH (09:50)
[2019-09-04] MEDS: DULOXETINE HCL 30 MG CAPSULE.DR PO SCH (09:50)
[2019-09-04] MEDS: FUROSEMIDE 20 MG TABLET PO SCH (09:50)
[2019-09-04] MEDS: LISINOPRIL 10 MG TABLET PO SCH (09:50)
[2019-09-04] MEDS: DIGOXIN 0.125 MG TABLET PO SCH (09:51)
[2019-09-04] MEDS: FINASTERIDE 5 MG TABLET PO SCH (09:51)
[2019-09-04] MEDS: CEFTRIAXONE 1 GM/D5W RTU 1 GM/50 ML RTUPB IV SCH (09:51)
[2019-09-04] MEDS: ENOXAPARIN SODIUM INJ 40 MG/0.4 ML DISP.SYRIN SUBCUT SCH (09:51)
--- NOTE | 2019-09-04 15:53 | PDOC PROGRESS REPORT ---
Subjective Progress Note for:: 09/04/19 Subjective:: Patient denied any chest pain or difficulty with breathing. No fever or chills. No abdominal pain, nausea or vomiting. He completed his 24 hours urine collection. Reason For Visit: HYPERCALCEMIC ENCEPHALOPATHY,HYPONATREMIA Physical Exam Vital Signs: Temp Pulse Resp BP Pulse Ox 98.3 F 70 18 128/61 H 99 09/04/19 11:49 09/04/19 11:49 09/04/19 11:49 09/04/19 11:49 09/04/19 11:49 Intake & Output 09/03/19 09/04/19 09/05/19 06:59 06:59 06:59 Intake Total 3445 2729 1350 Output Total 1475 525 Balance 1970 2204 1350 Weight 79.5 kg 79.9 kg Physical Exam: General appearance: PRESENT: no acute distress, disheveled Head exam: PRESENT: atraumatic, normocephalic Eye exam: PRESENT: conjunctiva pink. ABSENT: pallor, scleral icterus Mouth exam: PRESENT: dry mucosa Neck exam: ABSENT: lymphadenopathy, tenderness, thyromegaly Respiratory exam: PRESENT: decreased breath sounds - at lung bases Cardiovascular exam: PRESENT: irregular rhythm, +S1, +S2 GI/Abdominal exam: PRESENT: normal bowel sounds, soft. ABSENT: distended, guarding, mass, organomegaly, rebound, tenderness Extremities exam: ABSENT: pedal edema Musculoskeletal exam: PRESENT: deformity Neurological exam: PRESENT: altered, oriented to place Skin exam: PRESENT: dry, warm Results Laboratory Results: 09/01/19 05:31 09/02/19 20:11 08/29/19 21:15 Blood Blood Culture - Final NO GROWTH IN 5 DAYS 08/29/19 21:54 Blood Blood Culture - Final NO GROWTH IN 5 DAYS 08/29/19 08/29/19 08/29/19 18:01 18:01 18:01 Creatine Kinase < 20 L CK-MB (CK-2) 1.88 Troponin I 0.033 NT-Pro-B Natriuret Pep 372 Impressions: Chest CT 08/29/19 00:00 IMPRESSION: Areas of scarring in the right hemithorax in regions of previous infiltrate on the examination from 2011 Vascular calcification in aorta and coronary arteries No evidence of acute process in the chest 4 mm nodule in the left upper lobe which could be followed in 12 months Additional chronic changes as above Chest X-Ray 08/29/19 18:51 IMPRESSION: No evidence of acute cardiopulmonary disease. Head CT 08/29/19 19:44 IMPRESSION: Scattered ectopic gas could be related to recent vascular access but is nonspecific. No other acute intracranial abnormality. Lower Extremity Ultrasound 08/30/19 00:00 IMPRESSION: NORMAL BILATERAL LOWER EXTREMITY ARTERIAL DOPPLER. Parathyroid Scan Nuclear Medicine 09/01/19 08:00 IMPRESSION: PERSISTENT ACTIVITY IN THE LOWER POLE OF THE RIGHT LOBE OF THE THYROID CONSISTENT WITH A PARATHYROID ADENOMA. Assessment & Plan - Diagnosis (1) Encephalopathy, metabolic Is this a current diagnosis for this admission?: Yes (2) Hypercalcemia Is this a current diagnosis for this admission?: Yes (3) Hyponatremia Is this a current diagnosis for this admission?: Yes (4) Primary hyperparathyroidism Is this a current diagnosis for this admission?: Yes (5) Chronic atrial fibrillation Is this a current diagnosis for this admission?: Yes (6) HTN (hypertension) Qualifiers: Hypertension type: essential hypertension Qualified Code(s): I10 - Essential (primary) hypertension Is this a current diagnosis for this admission?: Yes (7) BPH (benign prostatic hypertrophy) with urinary obstruction Is this a current diagnosis for this admission?: Yes (8) Sarcoma of right lower extremity Is this a current diagnosis for this admission?: Yes (9) Vitamin D deficiency Is this a current diagnosis for this admission?: Yes - Time Time Spent with patient: 25-34 minutes Level of Care: IMCU Medications reviewed and adjusted accordingly: Yes Anticipated discharge: Home with Homehealth Within: Other - Inpatient Certification Based on my medical assessment, after consideration of the patient's comorbidities, presenting symptoms, or acuity I expect that the services needed warrant INPATIENT care.: Yes I certify that my determination is in accordance with my understanding of Medicare's requirements for reasonable and necessary INPATIENT services [42 CFR 412.3e].: Yes Medical Necessity: Significant Comorbidiites Make Outpatient Treatment Too Risky, Need Close Monitoring Due to Risk of Patient Decompensation, Need For IV Fluids, Need For Continuous Telemetry Monitoring, Need for IV Antibiotics, Risk of Complication if Not Cared For in Hospital, Risk of Diagnosis Which Will Require Inpatient Eval/Care/Monitoring 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 Follow up on urine calcium content. Obtain PT evaluation for ambulatory safety and rehabilitation.
[2019-09-04] MEDS: TAMSULOSIN HCL 0.4 MG CAP.SR.24H PO SCH (17:19)
[2019-09-05] MEDS: NORMAL SALINE 1000 ML 1,000 ML IV PRN ×2 (04:00→18:13)
[2019-09-05] MEDS: PREGABALIN 75 MG CAPSULE PO SCH ×3 (05:46→21:51)
[2019-09-05] MEDS: DILTIAZEM HCL 120 MG CAP.SR.24H PO SCH (09:57)
[2019-09-05] MEDS: ASPIRIN 81 MG TABLET, ENT COATED PO SCH (09:57)
[2019-09-05] MEDS: DULOXETINE HCL 30 MG CAPSULE.DR PO SCH (09:57)
[2019-09-05] MEDS: LISINOPRIL 10 MG TABLET PO SCH (09:57)
[2019-09-05] MEDS: FUROSEMIDE 20 MG TABLET PO SCH (09:57)
[2019-09-05] MEDS: FINASTERIDE 5 MG TABLET PO SCH (09:57)
[2019-09-05] MEDS: DIGOXIN 0.125 MG TABLET PO SCH (09:57)
[2019-09-05] MEDS: CEFTRIAXONE 1 GM/D5W RTU 1 GM/50 ML RTUPB IV SCH (09:58)
[2019-09-05] MEDS: ENOXAPARIN SODIUM INJ 40 MG/0.4 ML DISP.SYRIN SUBCUT SCH (10:02)
[2019-09-05 12:36] LABS: CALCIUM RANDOM URINE 9.5 mg/dL (Not Estab.)
--- NOTE | 2019-09-05 14:02 | PDOC PROGRESS REPORT ---
Subjective Progress Note for:: 09/05/19 Subjective:: Patient denied any chest pain or difficulty with breathing. No fever or chills. No abdominal pain, nausea or vomiting. Reason For Visit: HYPERCALCEMIC ENCEPHALOPATHY,HYPONATREMIA Physical Exam Vital Signs: Temp Pulse Resp BP Pulse Ox 98.2 F 69 16 115/59 L 99 09/05/19 08:13 09/05/19 08:13 09/05/19 08:13 09/05/19 08:13 09/05/19 08:13 Intake & Output 09/04/19 09/05/19 09/06/19 06:59 06:59 06:59 Intake Total 2729 2710 50 Output Total 525 100 Balance 2204 2610 50 Weight 79.9 kg 86.8 kg Physical Exam: General appearance: PRESENT: no acute distress, disheveled Head exam: PRESENT: atraumatic, normocephalic Eye exam: PRESENT: conjunctiva pink. ABSENT: pallor, scleral icterus Mouth exam: PRESENT: dry mucosa Neck exam: ABSENT: lymphadenopathy, tenderness, thyromegaly Respiratory exam: PRESENT: decreased breath sounds - at lung bases Cardiovascular exam: PRESENT: irregular rhythm, +S1, +S2 GI/Abdominal exam: PRESENT: normal bowel sounds, soft. ABSENT: distended, guarding, mass, organomegaly, rebound, tenderness Extremities exam: ABSENT: pedal edema Musculoskeletal exam: PRESENT: deformity Neurological exam: PRESENT: altered, oriented to place Skin exam: PRESENT: dry, warm Results Laboratory Results: 09/01/19 05:31 09/02/19 20:11 08/29/19 08/29/19 08/29/19 18:01 18:01 18:01 Creatine Kinase < 20 L CK-MB (CK-2) 1.88 Troponin I 0.033 NT-Pro-B Natriuret Pep 372 Impressions: Chest CT 08/29/19 00:00 IMPRESSION: Areas of scarring in the right hemithorax in regions of previous infiltrate on the examination from 2011 Vascular calcification in aorta and coronary arteries No evidence of acute process in the chest 4 mm nodule in the left upper lobe which could be followed in 12 months Additional chronic changes as above Chest X-Ray 08/29/19 18:51 IMPRESSION: No evidence of acute cardiopulmonary disease. Head CT 08/29/19 19:44 IMPRESSION: Scattered ectopic gas could be related to recent vascular access but is nonspecific. No other acute intracranial abnormality. Lower Extremity Ultrasound 08/30/19 00:00 IMPRESSION: NORMAL BILATERAL LOWER EXTREMITY ARTERIAL DOPPLER. Parathyroid Scan Nuclear Medicine 09/01/19 08:00 IMPRESSION: PERSISTENT ACTIVITY IN THE LOWER POLE OF THE RIGHT LOBE OF THE THYROID CONSISTENT WITH A PARATHYROID ADENOMA. Assessment & Plan - Diagnosis (1) Encephalopathy, metabolic Is this a current diagnosis for this admission?: Yes (2) Hypercalcemia Is this a current diagnosis for this admission?: Yes (3) Hyponatremia Is this a current diagnosis for this admission?: Yes (4) Primary hyperparathyroidism Is this a current diagnosis for this admission?: Yes (5) Chronic atrial fibrillation Is this a current diagnosis for this admission?: Yes (6) HTN (hypertension) Qualifiers: Hypertension type: essential hypertension Qualified Code(s): I10 - Essential (primary) hypertension Is this a current diagnosis for this admission?: Yes (7) BPH (benign prostatic hypertrophy) with urinary obstruction Is this a current diagnosis for this admission?: Yes (8) Sarcoma of right lower extremity Is this a current diagnosis for this admission?: Yes (9) Vitamin D deficiency Is this a current diagnosis for this admission?: Yes - Time Time Spent with patient: 25-34 minutes Level of Care: IMCU Medications reviewed and adjusted accordingly: Yes Anticipated discharge: Home with Homehealth Within: Other - Inpatient Certification Based on my medical assessment, after consideration of the patient's comor bidities, presenting symptoms, or acuity I expect that the services needed warrant INPATIENT care.: Yes I certify that my determination is in accordance with my understanding of Medicare's requirements for reasonable and necessary INPATIENT services [42 CFR 412.3e].: Yes Medical Necessity: Significant Comorbidiites Make Outpatient Treatment Too Risky, Need Close Monitoring Due to Risk of Patient Decompensation, Need For IV Fluids, Need For Continuous Telemetry Monitoring, Risk of Complication if Not Cared For in Hospital, Risk of Diagnosis Which Will Require Inpatient Eval/Care/Monitoring Post 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 Follow up on 24 hours urine calcium level, a send out test at this facility and may take up to till 72 hours to get result back. Start on low dose Vitamin D replacement.
[2019-09-05] MEDS: CHOLECALCIFEROL (D3) 1,000 UNIT (25 MCG) TABLET PO SCH (15:01)
[2019-09-05] MEDS: TAMSULOSIN HCL 0.4 MG CAP.SR.24H PO SCH (18:11)
[2019-09-06] MEDS: NORMAL SALINE 1000 ML 1,000 ML IV PRN (05:27)
[2019-09-06] MEDS: PREGABALIN 75 MG CAPSULE PO SCH ×3 (05:27→21:28)
[2019-09-06] MEDS: CEFTRIAXONE 1 GM/D5W RTU 1 GM/50 ML RTUPB IV SCH (09:44)
[2019-09-06] MEDS: LISINOPRIL 10 MG TABLET PO SCH (09:44)
[2019-09-06] MEDS: ASPIRIN 81 MG TABLET, ENT COATED PO SCH (09:45)
[2019-09-06] MEDS: FINASTERIDE 5 MG TABLET PO SCH (09:45)
[2019-09-06] MEDS: DIGOXIN 0.125 MG TABLET PO SCH (09:45)
[2019-09-06] MEDS: FUROSEMIDE 20 MG TABLET PO SCH (09:45)
[2019-09-06] MEDS: CHOLECALCIFEROL (D3) 1,000 UNIT (25 MCG) TABLET PO SCH (09:45)
[2019-09-06] MEDS: DULOXETINE HCL 30 MG CAPSULE.DR PO SCH (09:45)
[2019-09-06] MEDS: DILTIAZEM HCL 120 MG CAP.SR.24H PO SCH (09:45)
[2019-09-06] MEDS: ENOXAPARIN SODIUM INJ 40 MG/0.4 ML DISP.SYRIN SUBCUT SCH (09:56)
--- NOTE | 2019-09-06 15:10 | PDOC PROGRESS REPORT ---
Subjective Progress Note for:: 09/06/19 Subjective:: No chest pain or difficulty with breathing. No fever or chills. No abdominal pain, nausea or vomiting. Reason For Visit: HYPERCALCEMIC ENCEPHALOPATHY,HYPONATREMIA Physical Exam Vital Signs: Temp Pulse Resp BP Pulse Ox 97.8 F 62 16 127/51 H 98 09/06/19 12:57 09/06/19 12:57 09/06/19 12:57 09/06/19 12:57 09/06/19 12:57 Intake & Output 09/05/19 09/06/19 09/07/19 06:59 06:59 06:59 Intake Total 2710 2530 50 Output Total 100 Balance 2610 2530 50 Weight 86.8 kg 87 kg Physical Exam: General appearance: PRESENT: no acute distress, disheveled Head exam: PRESENT: atraumatic, normocephalic Eye exam: PRESENT: conjunctiva pink. ABSENT: pallor, scleral icterus Mouth exam: PRESENT: dry mucosa Neck exam: ABSENT: lymphadenopathy, tenderness, thyromegaly Respiratory exam: PRESENT: decreased breath sounds - at lung bases Cardiovascular exam: PRESENT: irregular rhythm, +S1, +S2 GI/Abdominal exam: PRESENT: normal bowel sounds, soft. ABSENT: distended, guarding, mass, organomegaly, rebound, tenderness Extremities exam: ABSENT: pedal edema Musculoskeletal exam: PRESENT: deformity Neurological exam: PRESENT: altered, oriented to place Skin exam: PRESENT: dry, warm Results Laboratory Results: 09/01/19 05:31 09/02/19 20:11 09/03/19 06:10 Ur Calcium 24 Hr 44 08/29/19 08/29/19 08/29/19 18:01 18:01 18:01 Creatine Kinase < 20 L CK-MB (CK-2) 1.88 Troponin I 0.033 NT-Pro-B Natriuret Pep 372 Impressions: Chest CT 08/29/19 00:00 IMPRESSION: Areas of scarring in the right hemithorax in regions of previous infiltrate on the examination from 2011 Vascular calcification in aorta and coronary arteries No evidence of acute process in the chest 4 mm nodule in the left upper lobe which could be followed in 12 months Additional chronic changes as above Chest X-Ray 08/29/19 18:51 IMPRESSION: No evidence of acute cardiopulmonary disease. Head CT 08/29/19 19:44 IMPRESSION: Scattered ectopic gas could be related to recent vascular access but is nonspecific. No other acute intracranial abnormality. Lower Extremity Ultrasound 08/30/19 00:00 IMPRESSION: NORMAL BILATERAL LOWER EXTREMITY ARTERIAL DOPPLER. Parathyroid Scan Nuclear Medicine 09/01/19 08:00 IMPRESSION: PERSISTENT ACTIVITY IN THE LOWER POLE OF THE RIGHT LOBE OF THE THYROID CONSISTENT WITH A PARATHYROID ADENOMA. Assessment & Plan - Diagnosis (1) Encephalopathy, metabolic Is this a current diagnosis for this admission?: Yes (2) Hypercalcemia Is this a current diagnosis for this admission?: Yes (3) Hyponatremia Is this a current diagnosis for this admission?: Yes (4) Primary hyperparathyroidism Is this a current diagnosis for this admission?: Yes (5) Chronic atrial fibrillation Is this a current diagnosis for this admission?: Yes (6) HTN (hypertension) Qualifiers: Hypertension type: essential hypertension Qualified Code(s): I10 - Essential (primary) hypertension Is this a current diagnosis for this admission?: Yes (7) BPH (benign prostatic hypertrophy) with urinary obstruction Is this a current diagnosis for this admission?: Yes (8) Sarcoma of right lower extremity Is this a current diagnosis for this admission?: Yes (9) Vitamin D deficiency Is this a current diagnosis for this admission?: Yes - Time Time Spent with patient: 25-34 minutes Level of Care: IMCU Medications reviewed and adjusted accordingly: Yes Anticipated discharge: Home with Homehealth Within: Other - Inpatient Certification Based on my medical assessment, after consideration of the patient's comorbidities, presenting symptoms, or acuity I expect that the services needed warrant INPATIENT care.: Yes I certify that my determination is in accordance with my understanding of Medicare's requirements for reasonable and necessary INPATIENT services [42 CFR 412.3e].: Yes Medical Necessity: Significant Comorbidiites Make Outpatient Treatment Too Risky, Need Close Monitoring Due to Risk of Patient Decompensation, Need For IV Fluids, Need For Continuous Telemetry Monitoring, Risk of Complication if Not Cared For in Hospital, Risk of Diagnosis Which Will Require Inpatient Eval/Car e/Monitoring 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 Increase Vitamin D to 2000 units daily.
[2019-09-06] MEDS: TAMSULOSIN HCL 0.4 MG CAP.SR.24H PO SCH (18:23)
[2019-09-07] MEDS: NORMAL SALINE 1000 ML 1,000 ML IV PRN ×3 (01:40→22:14)
[2019-09-07] MEDS: PREGABALIN 75 MG CAPSULE PO SCH ×3 (06:12→22:14)
[2019-09-07] MEDS: DIGOXIN 0.125 MG TABLET PO SCH (09:08)
[2019-09-07] MEDS: FUROSEMIDE 20 MG TABLET PO SCH (09:09)
[2019-09-07] MEDS: DULOXETINE HCL 30 MG CAPSULE.DR PO SCH (09:09)
[2019-09-07] MEDS: DILTIAZEM HCL 120 MG CAP.SR.24H PO SCH (09:09)
[2019-09-07] MEDS: CHOLECALCIFEROL (D3) 1,000 UNIT (25 MCG) TABLET PO SCH (09:09)
[2019-09-07] MEDS: FINASTERIDE 5 MG TABLET PO SCH (09:09)
[2019-09-07] MEDS: ASPIRIN 81 MG TABLET, ENT COATED PO SCH (09:09)
[2019-09-07] MEDS: LISINOPRIL 10 MG TABLET PO SCH (09:09)
[2019-09-07] MEDS: ENOXAPARIN SODIUM INJ 40 MG/0.4 ML DISP.SYRIN SUBCUT SCH (09:09)
--- NOTE | 2019-09-07 12:03 | PDOC PROGRESS REPORT ---
Subjective Progress Note for:: 09/07/19 Subjective:: Patient denied any chest pain or difficulty with breathing. No fever or chills. No abdominal pain, nausea or vomiting. Voiding satisfactorily. Reason For Visit: HYPERCALCEMIC ENCEPHALOPATHY,HYPONATREMIA Physical Exam Vital Signs: Temp Pulse Resp BP Pulse Ox 98.1 F 52 L 16 145/60 H 99 09/07/19 08:48 09/07/19 08:48 09/07/19 08:48 09/07/19 08:48 09/07/19 08:48 Intake & Output 09/06/19 09/07/19 09/08/19 06:59 06:59 06:59 Intake Total 2530 1510 912 Balance 2530 1510 912 Weight 87 kg 85.9 kg Physical Exam: General appearance: PRESENT: no acute distress, disheveled Head exam: PRESENT: atraumatic, normocephalic Eye exam: PRESENT: conjunctiva pink. ABSENT: pallor, scleral icterus Mouth exam: PRESENT: dry mucosa Neck exam: ABSENT: lymphadenopathy, tenderness, thyromegaly Respiratory exam: PRESENT: decreased breath sounds - at lung bases Cardiovascular exam: PRESENT: irregular rhythm, +S1, +S2 GI/Abdominal exam: PRESENT: normal bowel sounds, soft. ABSENT: distended, guarding, mass, organomegaly, rebound, tenderness Extremities exam: ABSENT: pedal edema Musculoskeletal exam: PRESENT: deformity Neurological exam: PRESENT: altered, oriented to place Skin exam: PRESENT: dry, warm Results Laboratory Results: 09/01/19 05:31 09/02/19 20:11 08/29/19 08/29/19 08/29/19 18:01 18:01 18:01 Creatine Kinase < 20 L CK-MB (CK-2) 1.88 Troponin I 0.033 NT-Pro-B Natriuret Pep 372 Impressions: Chest CT 08/29/19 00:00 IMPRESSION: Areas of scarring in the right hemithorax in regions of previous infiltrate on the examination from 2011 Vascular calcification in aorta and coronary arteries No evidence of acute process in the chest 4 mm nodule in the left upper lobe which could be followed in 12 months Additional chronic changes as above Chest X-Ray 08/29/19 18:51 IMPRESSION: No evidence of acute cardiopulmonary disease. Head CT 08/29/19 19:44 IMPRESSION: Scattered ectopic gas could be related to recent vascular access but is nonspecific. No other acute intracranial abnormality. Lower Extremity Ultrasound 08/30/19 00:00 IMPRESSION: NORMAL BILATERAL LOWER EXTREMITY ARTERIAL DOPPLER. Parathyroid Scan Nuclear Medicine 09/01/19 08:00 IMPRESSION: PERSISTENT ACTIVITY IN THE LOWER POLE OF THE RIGHT LOBE OF THE THYROID CONSISTENT WITH A PARATHYROID ADENOMA. Assessment & Plan - Diagnosis (1) Encephalopathy, metabolic Is this a current diagnosis for this admission?: Yes (2) Hypercalcemia Is this a current diagnosis for this admission?: Yes (3) Hyponatremia Is this a current diagnosis for this admission?: Yes (4) Primary hyperparathyroidism Is this a current diagnosis for this admission?: Yes (5) Chronic atrial fibrillation Is this a current diagnosis for this admission?: Yes (6) HTN (hypertension) Qualifiers: Hypertension type: essential hypertension Qualified Code(s): I10 - Essential (primary) hypertension Is this a current diagnosis for this admission?: Yes (7) BPH (benign prostatic hypertrophy) with urinary obstruction Is this a current diagnosis for this admission?: Yes (8) Sarcoma of right lower extremity Is this a current diagnosis for this admission?: Yes (9) Vitamin D deficiency Is this a current diagnosis for this admission?: Yes - Time Time Spent with patient: 25-34 minutes Level of Care: IMCU Medications reviewed and adjusted accordingly: Yes Anticipated discharge: Home with Homehealth Within: Other - Inpatient Certification Based on my medical assessment, after consideration of the patient's com orbidities, presenting symptoms, or acuity I expect that the services needed warrant INPATIENT care.: Yes I certify that my determination is in accordance with my understanding of Medicare's requirements for reasonable and necessary INPATIENT services [42 CFR 412.3e].: Yes Medical Necessity: Significant Comorbidiites Make Outpatient Treatment Too Risky, Need Close Monitoring Due to Risk of Patient Decompensation, Need For IV Fluids, Need For Continuous Telemetry Monitoring, Risk of Complication if Not Cared For in Hospital, Risk of Diagnosis Which Will Require Inpatient Eval/Care/Monitoring Post Hospital Care: D/C Pipelayer 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 Obtain CBC with diff and CMP.
[2019-09-07 13:03] LABS: ABSOLUTE BASOPHILS # (AUTO) 0.1 10^3/uL (0.0-0.2); ABSOLUTE EOSINOPHILS # (AUTO) 0.2 10^3/uL (0.0-0.6); ABSOLUTE MONOCYTES (AUTO) 0.7 10^3/uL (0.1-1.4); ABSOLUTE NEUT (AUTO) 6.6 10^3/uL (1.7-8.2); BASOPHILS % (AUTO) 0.7 % (0-2); EOSINOPHILS % (AUTO) 2.4 % (0-6); HEMATOCRIT 36.7 % (37.9-51.0); HEMOGLOBIN 12.6 g/dL (13.5-17.0); LYMPHOCYTES % (AUTO) 11.8 % (13-45); MEAN CORPUSCULAR HEMOGLOBIN 29.9 pg (27.0-33.4); MEAN CORPUSCULAR HGB CONC 34.4 g/dL (32.0-36.0); MEAN CORPUSCULAR VOLUME 87 fl (80-97); MONOCYTES % (AUTO) 7.8 % (3-13); PLATELET COUNT 175 10^3/uL (150-450); RED BLOOD COUNT 4.23 10^6/uL (4.35-5.55); RED CELL DISTRIBUTION WIDTH 15.4 % (11.5-14.0); SEGMENTED NEUTROPHILS % (AUTO) 77.3 % (42-78); TOTAL CELLS COUNTED % (AUTO) 100 %; WHITE BLOOD COUNT 8.6 10^3/uL (4.0-10.5)
[2019-09-07 13:18] LABS: ALBUMIN 2.9 g/dL (3.5-5.0); ALKALINE PHOSPHATASE 50 U/L (38-126); ASPARTATE AMINO TRANSFERASE 30 U/L (17-59); BILIRUBIN,TOTAL 0.3 mg/dL (0.2-1.3); BLOOD UREA NITROGEN 11 mg/dL (7-20); CALCIUM 10.6 mg/dL (8.4-10.2); GLUCOSE 98 mg/dL (75-110); POTASSIUM 3.9 mmol/L (3.6-5.0); TOTAL PROTEIN 5.2 g/dL (6.3-8.2)
[2019-09-07 13:23] LABS: CARBON DIOXIDE 29 mmol/L (22-30); CHLORIDE 102 mmol/L (98-107)
[2019-09-07 13:25] LABS: ANION GAP 4 (5-19)
[2019-09-07] MEDS: TAMSULOSIN HCL 0.4 MG CAP.SR.24H PO SCH (17:07)
[2019-09-08] MEDS: PREGABALIN 75 MG CAPSULE PO SCH ×3 (05:10→21:08)
[2019-09-08] MEDS: NORMAL SALINE 1000 ML 1,000 ML IV PRN ×2 (07:35→17:00)
[2019-09-08] MEDS: ASPIRIN 81 MG TABLET, ENT COATED PO SCH (09:03)
[2019-09-08] MEDS: DULOXETINE HCL 30 MG CAPSULE.DR PO SCH (09:03)
[2019-09-08] MEDS: DILTIAZEM HCL 120 MG CAP.SR.24H PO SCH (09:03)
[2019-09-08] MEDS: FINASTERIDE 5 MG TABLET PO SCH (09:03)
[2019-09-08] MEDS: ENOXAPARIN SODIUM INJ 40 MG/0.4 ML DISP.SYRIN SUBCUT SCH (09:03)
[2019-09-08] MEDS: CHOLECALCIFEROL (D3) 1,000 UNIT (25 MCG) TABLET PO SCH (09:03)
[2019-09-08] MEDS: DIGOXIN 0.125 MG TABLET PO SCH (09:03)
[2019-09-08] MEDS: LISINOPRIL 10 MG TABLET PO SCH (09:04)
[2019-09-08] MEDS: FUROSEMIDE 20 MG TABLET PO SCH (09:04)
[2019-09-08] MEDS: TAMSULOSIN HCL 0.4 MG CAP.SR.24H PO SCH (17:00)
--- NOTE | 2019-09-08 18:46 | PDOC DISCHARGE SUMMARY ---
Impression - Admit/DC Date/PCP Admission Date/Primary Care Provider: 08/29/19 19:48 ASHLEY DACOSTA Discharge Date: 09/08/19 - Discharge Diagnosis (1) Encephalopathy, metabolic Is this a current diagnosis for this admission?: Yes (2) Hypercalcemia Is this a current diagnosis for this admission?: Yes (3) Hyponatremia Is this a current diagnosis for this admission?: Yes (4) Primary hyperparathyroidism Is this a current diagnosis for this admission?: Yes (5) Chronic atrial fibrillation Is this a current diagnosis for this admission?: Yes (6) HTN (hypertension) Is this a current diagnosis for this admission?: Yes (7) BPH (benign prostatic hypertrophy) with urinary obstruction Is this a current diagnosis for this admission?: Yes (8) Sarcoma of right lower extremity Is this a current diagnosis for this admission?: Yes (9) Vitamin D deficiency Is this a current diagnosis for this admission?: Yes - Assessment Summary: Patient was admitted for metabolic encephalopathy with hypercalcemia and hyponatremia. 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 His vitamin D level was very low and his u24 hours urine collection was in normal range. His elevated intact PTH may be due to the adenoma but his vitamin D deficiency may be a contributing factor and limit how aggressive it can be replace due to possible formation of kidney stone with hypercalcemia and hypercalciuria. His hypercalcemia and mental status did improved with IV fluid infusion for hydration. He was started on low daily dose of Vitamin D 2000 units without significant increase in his serum calcium level. He was able to ambulate with walker assistance. He will be discharged home today and follow up in the office as instructed upon discharge. - Additional Information Referrals: ASHLEY DACOSTA MD [Primary Care Provider] - 09/17/19 10:00 am Prescriptions: Cholecalciferol (Vitamin D3) [Vitamin D3 1000 Unit Tablet] 1,000 unit PO DAILY #90 tablet Home Medications: Digoxin [Lanoxin 0.25 mg Tablet] 0.25 mg PO DAILY 09/22/17 Finasteride [Proscar 5 mg Tablet] 5 mg PO DAILY 09/22/17 Lisinopril [Prinivil 10 mg Tablet] 10 mg PO DAILY 09/22/17 Tamsulosin HCl [Flomax 0.4 mg Cap.sr] 0.4 mg PO PCSUPPER 09/22/17 Simvastatin [Zocor 10 mg Tablet] 10 mg PO QHS #30 tablet 09/25/17 Duloxetine HCl 60 mg PO DAILY 08/29/19 Pregabalin 75 mg PO Q8 08/29/19 Aspirin [Ecotrin 81 mg EC Tablet] 81 mg PO DAILY 08/30/19 Diltiazem HCl [Diltiazem 24Hr ER (Cd)] 120 mg PO DAILY 08/30/19 Furosemide [Lasix 20 mg Tablet] 20 mg PO DAILY 08/30/19 Cholecalciferol (Vitamin D3) [Vitamin D3 1000 Unit Tablet] 1,000 unit PO DAILY #90 tablet 09/08/19 History of Present Illiness History of Present Illness: ARELISLucretia BAUTISTA is a 79 year old male I received a call from this patient's family friend, he was concerned about this patient and he gave me the patient's phone number for me to call him at home, I called the patient I was hardly able to hear him on the phone, the voice was very soft and the tone was extremely low but I heard him say he felt unwell, I advised him to go to the emergency room for evaluation. He has a history of chronic atrial fibrillation, hypertension, deep vein thrombosis acid reflux disease enlarged prostate gland. In the emerge ncy room he was evaluated, it felt that apparently he was seen at Dr. Dacosta's office on August 23, he had a chest x-ray done, he was diagnosed with pneumonia was prescribed Augmentin based on the record from the emergency room. Patient endorses history of recurrent falls recently emergency room a CAT scan of the head was done, it demonstrated small amount of gas in the infratemporal fossa there is no evidence of acute mass or mass-effect. CT chest was also obtained it demonstrated small area of scarring along the lateral left lung base with a calcified granuloma in the costophrenic angle similar to previous examination. There was nonspecific nodular focus in the lateral left upper lobe that measured 4 mm essentially no significant acute change demonstrated on the CT chest. More importantly blood work demonstrated elevated serum calcium, 11.9, the PSA, CEA were normal PTH was elevated, 168 suggesting that the hypercalcemia is PTH mediated consistent with primary hyperparathyroidism., There was also low serum sodium but the serum osmolality was normal suggesting this is pseudo- hyponatremia Hospital Course Hospital Course: Patient was admitted for metabolic encephalopathy with hypercalcemia and hyponatremia. 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 His vitamin D level was very low and his u24 hours urine collection was in normal range. His elevated intact PTH may be due to the adenoma but his vitamin D deficiency may be a contributing factor and limit how aggressive it can be replace due to possible formation of kidney stone with hypercalcemia and hypercalciuria. His hypercalcemia and mental status did improved with IV fluid infusion for hydratio n. He was started on low daily dose of Vitamin D 2000 units without significant increase in his serum calcium level. He was able to ambulate with walker assistance. He will be discharged home today and follow up in the office as instructed upon discharge. Physical Exam Vital Signs: Temp Pulse Resp BP Pulse Ox 98.5 F 77 18 133/60 H 99 09/08/19 16:03 09/08/19 16:03 09/08/19 16:03 09/08/19 16:03 09/08/19 16:03 Intake & Output 09/07/19 09/08/19 09/09/19 06:59 06:59 06:59 Intake Total 1510 2001 2097 Output Total 525 275 Balance 1510 1477 1822 Weight 85.9 kg 87 kg General appearance: PRESENT: no acute distress, well-developed, well-nourished Head exam: PRESENT: atraumatic, normocephalic Eye exam: PRESENT: conjunctiva pink, EOMI, PERRLA. ABSENT: scleral icterus Ear exam: PRESENT: normal external ear exam Mouth exam: PRESENT: moist, tongue midline Neck exam: ABSENT: carotid bruit, JVD, lymphadenopathy, thyromegaly Respiratory exam: PRESENT: clear to auscultation etta. ABSENT: rales, rhonchi, wheezes Cardiovascular exam: PRESENT: irregular rhythm, +S1, +S2. ABSENT: diastolic murmur, rubs, systolic murmur Vascular exam: ABSENT: pallor GI/Abdominal exam: PRESENT: normal bowel sounds, soft. ABSENT: distended, guarding, mass, organolmegaly, rebound, tenderness Extremities exam: PRESENT: full ROM. ABSENT: calf tenderness, clubbing, pedal edema Neurological exam: PRESENT: alert, awake, oriented to person, oriented to place, oriented to time, oriented to situation, CN II-XII grossly intact. ABSENT: motor sensory deficit Psychiatric exam: PRESENT: appropriate affect, normal mood. ABSENT: homicidal ideation, suicidal ideation Skin exam: PRESENT: dry, intact, warm. ABSENT: cyanosis, rash Results Laboratory Results: WBC 8.6 10^3/uL (4.0-10.5) 09/07/19 12:23 RBC 4.23 10^6/uL (4.35-5.55) L 09/07/19 12:23 Hgb 12.6 g/dL (13.5-17.0) L 09/07/19 12:23 Hct 36.7 % (37.9-51.0) L 09/07/19 12:23 MCV 87 fl (80-97) 09/07/19 12:23 MCH 29.9 pg (27.0-33.4) 09/07/19 12:23 MCHC 34.4 g/dL (32.0-36.0) 09/07/19 12: RDW 15.4 % (11.5-14.0) H 09/07/19 12:23 Plt Count 175 10^3/uL (150-450) 09/07/19 12:23 Lymph % (Auto) 11.8 % (13-45) L 09/07/19 12:23 [place] % (Auto) 7.8 % (3-13) 09/07/19 12:23 Eos % (Auto) 2.4 % (0-6) 09/07/19 12: Baso % (Auto) 0.7 % (0-2) 09/07/19 12:23 Absolute Neuts (auto) 6.6 10^3/uL (1.7-8.2) 09/07/19 12:23 Absolute Lymphs (auto) 1.0 10^3/uL (0.5-4.7) 09/07/19 12:23 Absolute Monos (auto) 0.7 10^3/uL (0.1-1.4) 09/07/19 12:23 Absolute Eos (auto) 0.2 10^3/uL (0.0-0.6) 09/07/19 12:23 Absolute Basos (auto) 0.1 10^3/uL (0.0-0.2) 09/07/19 12:23 Seg Neutrophils % 77.3 % (42-78) 09/07/19 12:23 Sodium 135.0 mmol/L (137-145) L 09/07/19 12:23 Potassium 3.9 mmol/L (3.6-5.0) 09/07/19 12:23 Chloride 102 mmol/L (98-107) 09/07/19 12:23 Carbon Dioxide 29 mmol/L (22-30) 09/07/19 12:23 Anion Gap 4 (5-19) L 09/07/19 12:23 BUN 11 mg/dL (7-20) 09/07/19 12:23 Creatinine 0.77 mg/dL (0.52-1.25) 09/07/19 12:23 Est GFR ( Amer) > 60 (>60) 09/07/19 12:23 Est GFR (MDRD) Non-Af > 60 (>60) 09/07/19 12:23 Glucose 98 mg/dL (75-110) 09/07/19 12:23 POC Glucose 129 mg/dL (70-110) H 08/31/19 09:16 Hemoglobin A1c % 5.6 % (4.7-6.0) 08/30/19 04:55 Serum Osmolality 276 mOsm/kg (275-301) 08/29/19 18:01 Calcium 10.6 mg/dL (8.4-10.2) H 09/07/19 12:23 Ionized Calcium Calixto 1.42 mmol/L (1.14-1.30) H 09/01/19 19:59 Magnesium 2.0 mg/dL (1.6-2.3) 08/29/19 18:01 Total Bilirubin 0.3 mg/dL (0.2-1.3) 09/07/19 12:23 Direct Bilirubin 0.0 mg/dL (0.0-0.4) 09/07/19 12:23 Neonat Total Bilirubin Not Reportable 09/07/19 12:23 Neonat Direct Bilirubin Not Reportable 09/07/19 12:23 Neonat Indirect Bili Not Reportable 09/07/19 12:23 AST 30 U/L (17-59) 09/07/19 12:23 ALT 18 U/L (<50) 09/07/19 12:23 Alkaline Phosphatase 50 U/L (38-126) 09/07/19 12:23 Creatine Kinase < 20 U/L (55-170) L 08/29/19 18:01 CK-MB (CK-2) 1.88 ng/mL (<4.55) 08/29/19 18:01 Troponin I 0.033 ng/mL 08/29/19 18:01 NT-Pro-B Natriuret Pep 372 pg/mL (<450) 08/29/19 18:01 Total Protein 5.2 g/dL (6.3-8.2) L 09/07/19 12:23 Albumin 2.9 g/dL (3.5-5.0) L 09/07/19 12:23 Carcinoembryonic Ag 2.77 ng/mL (<3.0) 08/29/19 18:01 Prostate Specific Ag 1.050 ng/mL (<4.00) 08/29/19 18:01 Vitamin D 25-Hydroxy < 12.8 ng/mL (14.7-68.3) L 09/01/19 19:59 PTH Intact 168.0 pg/mL (10.0-65.0) H 08/29/19 21:54 Urine Color YELLOW 08/30/19 02:50 Urine Appearance SLIGHTLY-CLOUDY 08/30/19 02:50 Urine pH 5.0 (5.0-9.0) 08/30/19 02:50 Ur Specific Thermal 1.023 08/30/19 02:50 Urine Protein NEGATIVE mg/dL (NEGATIVE) 08/30/19 02:50 Urine Glucose (UA) NEGATIVE mg/dL (NEGATIVE) 08/30/19 02:50 Urine Ketones NEGATIVE mg/dL (NEGATIVE) 08/30/19 02:50 Urine Blood NEGATIVE (NEGATIVE) 08/30/19 02:50 Urine Nitrite NEGATIVE (NEGATIVE) 08/30/19 02:50 Urine Bilirubin NEGATIVE (NEGATIVE) 08/30/19 02:50 Urine Urobilinogen 4.0 mg/dL (<2.0) H 08/30/19 02:50 Ur Leukocyte Esterase MODERATE (NEGATIVE) H 08/30/19 02:50 Urine WBC (Auto) 109 /HPF 08/30/19 02:50 Urine RBC (Auto) 1 /HPF 08/30/19 02:50 U Hyaline Cast (Auto) 3 /LPF 08/30/19 02:50 Urine Bacteria (Auto) TRACE /HPF 08/30/19 02:50 Squamous Epi Cells Auto 1 /HPF 08/30/19 02:50 Urine Mucus (Auto) FEW /LPF 08/30/19 02:50 Urine Osmolality 791 mOsm/kg (300-900) 08/30/19 02:50 Urine Sodium 64 mmol/L (30-90) 08/30/19 02:50 Urine Calcium 9.5 mg/dL (Not Estab.) 09/03/19 06:10 Ur Calcium 24 Hr 44 mg/24 hr (26-354) 09/03/19 06:10 Urine Ascorbic Acid 20 (NEGATIVE) H 08/30/19 02:50 Digoxin 1.26 ng/mL (0.8-2.0) 08/29/19 18:01 08/29/19 08/29/19 18:01 18:01 CK-MB (CK-2) 1.88 Troponin I 0.033 NT-Pro-B Natriuret Pep 372 Impressions: Chest CT 08/29/19 00:00 IMPRESSION: Areas of scarring in the right hemithorax in regions of previous infiltrate on the examination from 2011 Vascular calcification in aorta and coronary arteries No evidence of acute process in the chest 4 mm nodule in the left upper lobe which could be followed in 12 months Additional chronic changes as above Chest X-Ray 08/29/19 18:51 IMPRESSION: No evidence of acute cardiopulmonary disease. Head CT 08/29/19 19:44 IMPRESSION: Scattered ectopic gas could be related to recent vascular access but is nonspecific. No other acute intracranial abnormality. Lower Extremity Ultrasound 08/30/19 00:00 IMPRESSION: NORMAL BILATERAL LOWER EXTREMITY ARTERIAL DOPPLER. Parathyroid Scan Nuclear Medicine 09/01/19 08:00 IMPRESSION: PERSISTENT ACTIVITY IN THE LOWER POLE OF THE RIGHT LOBE OF THE THYROID CONSISTENT WITH A PARATHYROID ADENOMA. Plan Health Concerns: Change in mental status due to worsening hypercalcemia. Plan of Treatment: Close monitoring with low dose vitamin D replacement and frequent check of his serum calcium level. Goals: Reduce his high readmission risk through close follow up. Stroke Is this a Stroke Patient?: No Acute Heart Failure - Is this a Heart Failure Patient?: No
[2019-09-09] MEDS: PREGABALIN 75 MG CAPSULE PO SCH (05:54)
[2019-09-09] MEDS: NORMAL SALINE 1000 ML 1,000 ML IV PRN (05:54)
[2019-09-09 10:35] VITALS: BP 117/62
[2019-09-09] MEDS: FUROSEMIDE 20 MG TABLET PO SCH (10:42)
[2019-09-09] MEDS: DILTIAZEM HCL 120 MG CAP.SR.24H PO SCH (10:42)
[2019-09-09] MEDS: DULOXETINE HCL 30 MG CAPSULE.DR PO SCH (10:42)
[2019-09-09] MEDS: CHOLECALCIFEROL (D3) 1,000 UNIT (25 MCG) TABLET PO SCH (10:43)
[2019-09-09] MEDS: LISINOPRIL 10 MG TABLET PO SCH (10:43)
[2019-09-09] MEDS: ASPIRIN 81 MG TABLET, ENT COATED PO SCH (10:43)
[2019-09-09] MEDS: ENOXAPARIN SODIUM INJ 40 MG/0.4 ML DISP.SYRIN SUBCUT SCH (10:43)
[2019-09-09] MEDS: FINASTERIDE 5 MG TABLET PO SCH (10:43)
[2019-09-09] MEDS: DIGOXIN 0.125 MG TABLET PO SCH (10:43)
== END 2019-09-09 11:41 | disposition home health service (06) | DRG 643 ==
LOC: ER 17:59 → OBSVTOIN 19:48 → EH 19:48 → 3W 21:05
PROVIDERS: ADMIT Internal Medicine Geriatric Medicine; ATTEND Internal Medicine Geriatric Medicine
DX: D35.1 Benign neoplasm of parathyroid gland (principal); G93.41 Metabolic encephalopathy; E87.1 Hypo-osmolality and hyponatremia; I48.20 Chronic atrial fibrillation, unspecified; E83.52 Hypercalcemia; R55 Syncope and collapse; I50.9 Heart failure, unspecified; I11.0 Hypertensive heart disease with heart failure; I95.9 Hypotension, unspecified; I73.9 Peripheral vascular disease, unspecified; K21.9 Gastro-esophageal reflux disease without esophagitis; N40.0 Benign prostatic hyperplasia without lower urinary tract symptoms; R00.0 Tachycardia, unspecified; C76.51 Malignant neoplasm of right lower limb; B35.1 Tinea unguium; Z86.718 Personal history of other venous thrombosis and embolism; Z79.82 Long term (current) use of aspirin; Z79.899 Other long term (current) drug therapy
CPT/HCPCS: 36415; 70450; 71046; 71250; 78070; 80048; 80053; 80162; 81001; 82306; 82330; 82340; 82378; 82550; 82553; 82962; 83036; 83735; 83880; 83930; 83935; 83970; 84153; 84300; 84484; 85025; 87040; 87086; 93005; 93010; 93925; 99285; A9500; J0461; J0696; J1650; J3490; J7030; Q9969

== ENCOUNTER 2019-09-13 10:28 | Emergency (ER) | payer MEDICARE ==
[2019-09-13 10:48] LABS: ABSOLUTE BASOPHILS # (AUTO) 0.1 10^3/uL (0.0-0.2); ABSOLUTE EOSINOPHILS # (AUTO) 0.1 10^3/uL (0.0-0.6); ABSOLUTE LYMPHOCYTES (AUTO) 1.7 10^3/uL (0.5-4.7); ABSOLUTE MONOCYTES (AUTO) 0.7 10^3/uL (0.1-1.4); ABSOLUTE NEUT (AUTO) 6.5 10^3/uL (1.7-8.2); BASOPHILS % (AUTO) 0.8 % (0-2); HEMATOCRIT 30.3 % (37.9-51.0); HEMOGLOBIN 10.3 g/dL (13.5-17.0); LYMPHOCYTES % (AUTO) 18.3 % (13-45); MEAN CORPUSCULAR HEMOGLOBIN 29.9 pg (27.0-33.4); MEAN CORPUSCULAR HGB CONC 34.1 g/dL (32.0-36.0); MEAN CORPUSCULAR VOLUME 88 fl (80-97); MONOCYTES % (AUTO) 8.1 % (3-13); PLATELET COUNT 181 10^3/uL (150-450); RED BLOOD COUNT 3.46 10^6/uL (4.35-5.55); RED CELL DISTRIBUTION WIDTH 15.5 % (11.5-14.0); SEGMENTED NEUTROPHILS % (AUTO) 71.8 % (42-78); TOTAL CELLS COUNTED % (AUTO) 100 %; WHITE BLOOD COUNT 9.1 10^3/uL (4.0-10.5)
[2019-09-13 10:57] LABS: INTERNATIONAL RATION (INR) 1.03; PROTHROMBIN TIME 13.5 SEC (11.4-15.4)
--- NOTE | 2019-09-13 11:02 | ER Document Report ---
Entered by KRISTY CALDERON SCRIBE 09/13/19 1033 Acting as scribe for:RASHEEDA HUNT MD ED GI/ - General Chief Complaint: Abdominal Pain Stated Complaint: ABDOMINAL PAIN Time Seen by Provider: 09/13/19 10:32 Primary Care Provider: ASHLEY DACOSTA MD [Primary Care Provider] - Follow up as needed Mode of Arrival: Ambulatory Information source: Patient Cannot obtain history due to: Dementia Notes: This 79 year old male patient presents to the emergency department today with complaints of frequent, painful urination. All history is being given by EMS and additional history obtained through [facility] records. The patient was admitted to this facility from 08/28 - 09/08 for hypercalcemia, hyponatremia, and encephalopathy. EMS reports that the patient's family has complained of abdominal pain for the last few days and they have been trying to call his PCP but have not been able to talk to anyone. TRAVEL OUTSIDE OF THE [place] IN LAST 30 DAYS: No - Related Data Allergies/Adverse Reactions: Shellfish * Allergy (Intermediate, Verified 08/29/19 20:39) Facial swelling Past Medical History - General Information source: Emergency Med Personnel, [facility] Records Cannot obtain history due to: Dementia - Social History Smoking Status: Former Smoker Cigarette use (# per day): No Frequency of alcohol use: None Drug Abuse: None Lives with: Family Family History: Reviewed & Not Pertinent - Bacitracin - Past Medical History Cardiac Medical History: Reports: Hx Atrial Fibrillation, Hx Congestive Heart Failure, Hx DVT, Hx Hypertension Pulmonary Medical History: Reports: Hx Pneumonia Renal/ Medical History: Reports: Hx Benign Prostatic Hyperplasia GI Medical History: Reports: Hx Gastroesophageal Reflux Disease Past Surgical History: Reports: Hx Orthopedic Surgery - Immunizations Hx Diphtheria, Pertussis, Tetanus Vaccination: No Review of Systems - Review of Systems -: Yes ROS unobtainable due to patient's medical condition Gastrointestinal: See HPI, Abdominal pain Genitourinary: See HPI, Frequency, Pain, Retention Physical Exam - Vital signs Vitals: Resp Pulse Ox 35 H 100 09/13/19 10:37 09/13/19 10:37 - Notes Notes: Physical Exam: General: Alert, appears quite uncomfortable. HEENT: Normocephalic. Atraumatic. PERRL. Extraocular movements intact. Oropharynx clear. Neck: Supple. Non-tender. Respiratory: Patient is breathing a little fast, it appears to be more related to his discomfort than shortness of breath.. Cardiovascular: Irregularly irregular. Abdominal: Firm mass in the suprapubic area consistent with distended bladder. Exquisite tenderness with palpation over bladder. No distension. Normal Bowel Sounds. Back: No gross abnormalities. Extremities: Moves all four extremities. Upper extremities: Normal inspection. Normal ROM. Lower extremities: Normal inspection. No edema. Normal ROM. Neurological: Normal cognition. AAOx4. Normal speech. Psychological: Normal affect. Normal Mood. Skin: Warm. Dry. Normal color. Course - Re-evaluation Re-evalutation: 09/13/19 11:03 Cortes catheter was placed and the patient drained 1600 mL's of urine. - Vital Signs Vital signs: Temp Pulse Resp BP Pulse Ox 98.3 F 27 H 131/70 H 100 09/13/19 10:57 09/13/19 11:01 09/13/19 11:01 09/13/19 11:01 - Laboratory Result Diagrams: 09/13/19 10:34 09/13/19 10:34 Laboratory results interpreted by me: 09/13/19 09/13/19 10:34 10:34 RBC 3.46 L Hgb 10.3 L Hct 30.3 L RDW 15.5 H Potassium 3.5 L Anion Gap 4 L BUN 21 H Calcium 11.7 H Total Protein 5.9 L Albumin 3.3 L Digoxin 0.65 L - EKG Interpretation by Nd EKG shows normal: [place], Intervals, QRS Complexes. abnormal: ST-T Waves - Diffuse nonspecific repolarization abnormalities Rate: Normal - 88 Rhythm: A.Fib When compared to previous EKG there are: No significant change Discharge - Discharge Clinical Impression: Acute urinary retention, Benign prostatic hyperplasia with urinary retention Condition: Stable Disposition: HOME, SELF-CARE Additional Instructions: Urinary Retention Urinary retention is inability to empty the bladder. It can result from a urine infection, or from mechanical problems such as an enlarged prostate gland or swelling of the urethra. Drugs or alcohol can also lead to urine retention. The condition is usually treated by passage of a catheter. If the physician thinks the problem will continue, the catheter may be left in place for a few days. Sometimes drugs are used to stimulate the bladder if the physician feels that inadequate bladder contraction is the cause. If the condition leading to the retention is a chronic one, such as an enlarged prostate, you will be referred to a specialist for further care. Call the physician or return if you develop fever, flank or back pain, pain on urination, or recurrent difficulty passing the urine. Your bladder was extremely swollen due to inability to pass urine. A catheter was placed into your bladder for drainage relieving the obstruction caused by your enlarged prostate. You should follow-up with Dr. Dacosta tomorrow for recheck and referral to a urologist. RETURN TO THE EMERGENCY ROOM IF ANY NEW OR WORSENING SYMPTOMS. Referrals: ASHLEY DACOSTA MD [Primary Care Provider] - Follow up tomorrow I personally performed the services described in the documentation, reviewed and edited the documentation which was dictated to the scribe in my presence, and it accurately records my words and actions.
[2019-09-13 11:07] LABS: ALBUMIN 3.3 g/dL (3.5-5.0); ALKALINE PHOSPHATASE 53 U/L (38-126); ASPARTATE AMINO TRANSFERASE 36 U/L (17-59); BILIRUBIN,TOTAL 0.8 mg/dL (0.2-1.3); BLOOD UREA NITROGEN 21 mg/dL (7-20); CALCIUM 11.7 mg/dL (8.4-10.2); CARBON DIOXIDE 30 mmol/L (22-30); CHLORIDE 106 mmol/L (98-107); CREATINE KINASE 79 U/L (55-170); DIGOXIN 0.65 ng/mL (0.8-2.0); GLUCOSE 89 mg/dL (75-110); POTASSIUM 3.5 mmol/L (3.6-5.0); TOTAL PROTEIN 5.9 g/dL (6.3-8.2)
[2019-09-13 11:09] LABS: APPEARANCE,URINE CLEAR; BILIRUBIN,URINE NEGATIVE (NEGATIVE); COLOR,URINE YELLOW; GLUCOSE, URINE NEGATIVE (NEGATIVE); KETONES,URINE NEGATIVE (NEGATIVE); LEUKOCYTE ESTERASE,URINE NEGATIVE (NEGATIVE); NITRITE,URINE NEGATIVE (NEGATIVE); PROTEIN,URINE NEGATIVE (NEGATIVE); UROBILINOGEN,URINE NEGATIVE mg/dL (<2.0)
[2019-09-13 11:11] LABS: ANION GAP 4 (5-19)
[2019-09-13 13:37] VITALS: BP 132/70
--- NOTE | 2019-09-13 22:13 | EKG REPORT ---
SEVERITY:- ABNORMAL ECG - ATRIAL FIBRILLATION, V-RATE 75-101 NONSPECIFIC REPOL ABNORMALITY, DIFFUSE LEADS : Confirmed by: Sabrina Reyes 13-Sep-2019 22:12:11
== END 2019-09-13 14:10 | disposition home or self-care (01) ==
LOC: ER 10:28
DX: N40.1 Benign prostatic hyperplasia with lower urinary tract symptoms (principal); R33.8 Other retention of urine; F03.90 Unspecified dementia, unspecified severity, without behavioral disturbance, psychotic disturbance, mood disturbance, and anxiety; R30.0 Dysuria; R10.9 Unspecified abdominal pain
CPT/HCPCS: 36415; 51702; 80053; 80162; 81001; 82550; 84484; 85025; 85610; 87040; 93005; 93010; 99284

== ENCOUNTER 2019-09-14 10:01 | Emergency (ER) | payer MEDICARE ==
[2019-09-14] MEDS ORDERED: LIDOCAINE 2% URO-JET 5 ML KIT MM ONE (10:38)
--- NOTE | 2019-09-14 11:34 | ER Document Report ---
HPI - HPI Patient complains to provider of: Catheter properly Time Seen by Provider: 09/14/19 10:25 Onset: This morning Onset/Duration: Sudden Pain Level: 0 Context: Patient presents after Cortes catheter was draining urine at home. Patient was seen yesterday in the ER for urinary retention and had a Cortes catheter placed. Patient noticed drainage from the catheter bag today. Patient denies any fever, abdominal pain, nausea or vomiting. Associated Symptoms: denies: Fever Exacerbated by: Denies Relieved by: Denies Similar symptoms previously: No Recently seen / treated by doctor: Yes - ROS ROS below otherwise negative: Yes - CONSTITUTIONAL Constitutional: DENIES: Fever - GASTROINTESTINAL Gastrointestinal: DENIES: Abdominal Pain, Nausea, Patient vomiting - URINARY Urinary: DENIES: Dysuria - DERM Skin Color: Normal Past Medical History - General Information source: Patient, Relative - Social History Smoking Status: Never Smoker Chew tobacco use (# tins/day): No Frequency of alcohol use: None Drug Abuse: None Lives with: Family Family History: Reviewed & Not Pertinent - Bacitracin Patient has homicidal ideation: No - Past Medical History Cardiac Medical History: Reports: Hx Atrial Fibrillation, Hx Congestive Heart Failure, Hx DVT, Hx Hypertension Denies: Hx Heart Attack Pulmonary Medical History: Reports: Hx Pneumonia Denies: Hx Asthma Neurological Medical History: Reports: Other - Dementia. Denies: Hx Cerebrovascular Accident, Hx Seizures Renal/ Medical History: Reports: Hx Benign Prostatic Hyperplasia. Denies: Hx Peritoneal Dialysis GI Medical History: Reports: Hx Gastroesophageal Reflux Disease. Denies: Hx Hepatitis, Hx Hiatal Hernia, Hx Ulcer Psychiatric Medical History: Denies: Hx Depression Infectious Medical History: Denies: Hx Hepatitis Past Surgical History: Reports: Hx Orthopedic Surgery. Denies: Hx Open Heart Surgery, Hx Pacemaker - Immunizations Hx Diphtheria, Pertussis, Tetanus Vaccination: No Vertical Provider Document - CONSTITUTIONAL Agree With Documented VS: Yes Exam Limitations: No Limitations General Appearance: WD/WN, No Apparent Distress - INFECTION CONTROL TRAVEL OUTSIDE OF THE [place] IN LAST 30 DAYS: No - HEENT HEENT: Atraumatic, Normocephalic - NECK Neck: Normal Inspection - RESPIRATORY Respiratory: Breath Sounds Normal, No Respiratory Distress - CARDIOVASCULAR Cardiovascular: No Murmur Notes: Irregularly irregular - REPRODUCTIVE Male Genitalia: Abnormal Inspection - Cortes catheter in place, yellow drainage to Cortes bag - BACK Back: Normal Inspection - MUSCULOSKELETAL/EXTREMETIES Musculoskeletal/Extremeties: MAEW - NEURO Level of Consciousness: Awake, Alert, Appropriate Motor/Sensory: No Motor Deficit - DERM Integumentary: Warm, Dry Course - Re-evaluation Re-evalutation: 09/14/19 11:33 Patient had a loosened cap on the drainage tip of his urinary catheter bag. Patient and family were educated on proper use and how to close To prevent any leakage of urine. Patient does not require a replacement Cortes catheter at this time. - Vital Signs Vital signs: Temp Pulse Resp BP Pulse Ox 98.1 F 91 16 95/57 L 95 09/14/19 10:20 09/14/19 10:07 09/14/19 10:07 09/14/19 10:07 09/14/19 10:07 Discharge - Discharge Clinical Impression: Cortes catheter problem Qualifiers: Encounter type: initial encounter Qualified Code(s): T83.9XXA - Unspecified complication of genitourinary prosthetic device, implant and graft, initial encounter Condition: Stable Disposition: HOME, SELF-CARE Instructions: Cortes Catheter Care ([facility]) Additional Instructions: Return immediately for any new or worsening symptoms Followup with your primary care provider, call tomorrow to make a followup appointment Referrals: ASHLEY DACOSTA MD [Primary Care Provider] - Follow up tomorrow [facility] [Provider Group] - Follow up as needed [facility] [Provider Group] - Follow up as needed
[2019-09-14 11:40] VITALS: BP 137/68
== END 2019-09-14 11:45 | disposition home or self-care (01) ==
LOC: ER 10:01
DX: T83.9XXA Unspecified complication of genitourinary prosthetic device, implant and graft, initial encounter (principal); I48.91 Unspecified atrial fibrillation; I11.0 Hypertensive heart disease with heart failure; I50.9 Heart failure, unspecified
CPT/HCPCS: 99283

== ENCOUNTER 2019-10-29 17:53 | Emergency (ER) | payer MEDICARE, OTHER ==
--- NOTE | 2019-10-29 19:17 | ER Document Report ---
ED Medical Screen (RME) - General Chief Complaint: Problem with Urinary Catheter Stated Complaint: CATHETER ISSUE/LEAKING Time Seen by Provider: 10/29/19 19:09 Primary Care Provider: ASHLEY DACOSTA MD [Primary Care Provider] - Follow up as needed Notes: HPI: 79-year-old male with chronic indwelling catheter presenting for leaking of the catheter from the head of the penis. States is been ongoing for about a wee k. States he had the catheter changed about a week and a half ago because there was a hole in the bag. Has not called his PCP who normally manages this. No fever. Denies abdominal pain. States he normally does have balance issues, denies any headache chest pain shortness of breath. PHYSICAL EXAMINATION: exam in the room with remote pilot operator present, uncircumcised male with Cortes catheter inserted there is some leaking of urine around the urethral opening in the catheter. No tenderness on exam. Testicles are descended and nontender with no palpable mass I have greeted and performed a rapid initial assessment of this patient. A comprehensive ED assessment and evaluation of the patient, analysis of test results and completion of medical decision making process will be conducted by an additional ED providers. TRAVEL OUTSIDE OF THE [place] IN LAST 30 DAYS: No - Related Data Allergies/Adverse Reactions: Shellfish * Allergy (Intermediate, Verified 10/29/19 19:08) Facial swelling Past Medical History - Social History Chew tobacco use (# tins/day): No Frequency of alcohol use: None Drug Abuse: None - Past Medical History Cardiac Medical History: Reports: Hx Atrial Fibrillation, Hx Congestive Heart Failure, Hx DVT, Hx Hypertension Denies: Hx Heart Attack Pulmonary Medical History: Reports: Hx Pneumonia Denies: Hx Asthma Neurological Medical History: Denies: Hx Cerebrovascular Accident, Hx Seizures Renal/ Medical History: Reports: Hx Benign Prostatic Hyperplasia. Denies: Hx Peritoneal Dialysis GI Medical History: Reports: Hx Gastroesophageal Reflux Disease. Denies: Hx Hepatitis, Hx Hiatal Hernia, Hx Ulcer Psychiatric Medical History: Denies: Hx Depression Infectious Medical History: Denies: Hx Hepatitis Past Surgical History: Reports: Hx Orthopedic Surgery. Denies: Hx Open Heart Surgery, Hx Pacemaker - Immunizations Hx Diphtheria, Pertussis, Tetanus Vaccination: No Physical Exam - Vital signs Vitals: Temp Pulse Resp BP Pulse Ox 99.1 F 50 L 18 85/62 L 98 10/29/19 18:10 10/29/19 18:10 10/29/19 18:10 10/29/19 18:10 10/29/19 18:10 Course - Vital Signs Vital signs: Temp Pulse Resp BP Pulse Ox 99.1 F 50 L 18 85/62 L 98 10/29/19 19:08 10/29/19 18:10 10/29/19 18:10 10/29/19 18:10 10/29/19 18:10 Doctor's Discharge - Discharge Referrals: ASHLEY DACOSTA MD [Primary Care Provider] - Follow up as needed
[2019-10-29 22:49] LABS: APPEARANCE,URINE TURBID; BILIRUBIN,URINE NEGATIVE (NEGATIVE); COLOR,URINE YELLOW; GLUCOSE, URINE NEGATIVE (NEGATIVE); KETONES,URINE NEGATIVE (NEGATIVE); LEUKOCYTE ESTERASE,URINE LARGE (NEGATIVE); NITRITE,URINE NEGATIVE (NEGATIVE); PROTEIN,URINE 100 mg/dL (NEGATIVE); URIC ACID CRYSTALS,URINE RARE /HPF; URINE SPECIFIC GRAVITY 1.011; UROBILINOGEN,URINE NEGATIVE mg/dL (<2.0)
[2019-10-29 23:35] LABS: ABSOLUTE EOSINOPHILS # (AUTO) 0.3 10^3/uL (0.0-0.6); ABSOLUTE LYMPHOCYTES (AUTO) 1.8 10^3/uL (0.5-4.7); ABSOLUTE MONOCYTES (AUTO) 0.9 10^3/uL (0.1-1.4); ABSOLUTE NEUT (AUTO) 5.7 10^3/uL (1.7-8.2); BASOPHILS % (AUTO) 0.6 % (0-2); EOSINOPHILS % (AUTO) 3.8 % (0-6); HEMATOCRIT 37.6 % (37.9-51.0); HEMOGLOBIN 12.8 g/dL (13.5-17.0); LYMPHOCYTES % (AUTO) 20.1 % (13-45); MEAN CORPUSCULAR HEMOGLOBIN 29.6 pg (27.0-33.4); MEAN CORPUSCULAR VOLUME 87 fl (80-97); MONOCYTES % (AUTO) 10.7 % (3-13); PLATELET COUNT 210 10^3/uL (150-450); RED BLOOD COUNT 4.32 10^6/uL (4.35-5.55); RED CELL DISTRIBUTION WIDTH 14.9 % (11.5-14.0); SEGMENTED NEUTROPHILS % (AUTO) 64.8 % (42-78); TOTAL CELLS COUNTED % (AUTO) 100 %; WHITE BLOOD COUNT 8.8 10^3/uL (4.0-10.5)
[2019-10-30 00:11] LABS: ALBUMIN 4.1 g/dL (3.5-5.0); ALKALINE PHOSPHATASE 65 U/L (38-126); ASPARTATE AMINO TRANSFERASE 21 U/L (17-59); BILIRUBIN,TOTAL 0.6 mg/dL (0.2-1.3); BLOOD UREA NITROGEN 17 mg/dL (7-20); CALCIUM 11.8 mg/dL (8.4-10.2); CARBON DIOXIDE 30 mmol/L (22-30); CHLORIDE 104 mmol/L (98-107); GLUCOSE 95 mg/dL (75-110); POTASSIUM 4.5 mmol/L (3.6-5.0); TOTAL PROTEIN 7.1 g/dL (6.3-8.2)
[2019-10-30 00:14] LABS: ANION GAP 4 (5-19)
--- NOTE | 2019-10-30 01:03 | ER Document Report ---
ED General - General Chief Complaint: Problem with Urinary Catheter Stated Complaint: CATHETER ISSUE/LEAKING Time Seen by Provider: 10/29/19 19:09 Primary Care Provider: ASHLEY DACOSTA MD [Primary Care Provider] - Follow up as needed Notes: 79-year-old male presents the emergency department because his Cortes catheter has been leaking for the past 2 days. States that he was seen at [facility] earlier today and they replaced his catheter but it kept leaking so they replaced it again and it has since continued to leak. Patient states that he tried to use electrical tape to fix it so it stopped leaking out of his urethra but it did not work. Denies leaking anywhere else throughout the catheter. Patient initially denied any other complaints but when I specifically asked about feeling dizzy or weak or anything like that based off if his heart rate that was bradycardic he said yes, patient admits that he has been feeling dizzy and woozy for the past 4 to 5 months and a little bit of off balance when he walks around but is otherwise fine. Also states he has been having right upper quadrant pain for a few months since he fell and hit the right side of his chest. States his doctor took a chest x-ray and it was normal. Denies any chest pain at this time. Denies any dizziness or wooziness at this time. Denies any change in how he feels. Admits to still taking his digoxin. Denies any change recently. TRAVEL OUTSIDE OF THE [place] IN LAST 30 DAYS: No - Related Data Allergies/Adverse Reactions: Shellfish * Allergy (Intermediate, Verified 10/29/19 19:08) Facial swelling Past Medical History - General Information source: Patient - Social History Smoking Status: Former Smoker Chew tobacco use (# tins/day): No Frequency of alcohol use: None Drug Abuse: None Family History: Hypertension Patient has homicidal ideation: No - Past Medical History Cardiac Medical History: Reports: Hx Atrial Fibrillation, Hx Congestive Heart Failure, Hx DVT, Hx Hypertension Denies: Hx Heart Attack Pulmonary Medical History: Reports: Hx Pneumonia Denies: Hx Asthma Neurological Medical History: Denies: Hx Cerebrovascular Accident, Hx Seizures Renal/ Medical History: Reports: Hx Benign Prostatic Hyperplasia. Denies: Hx Peritoneal Dialysis GI Medical History: Reports: Hx Gastroesophageal Reflux Disease. Denies: Hx Hepatitis, Hx Hiatal Hernia, Hx Ulcer Psychiatric Medical History: Denies: Hx Depression Infectious Medical History: Denies: Hx Hepatitis Past Surgical History: Reports: Hx Orthopedic Surgery. Denies: Hx Open Heart Surgery, Hx Pacemaker - Immunizations Hx Diphtheria, Pertussis, Tetanus Vaccination: No Review of Systems - Review of Systems Constitutional: No symptoms reported EENT: No symptoms reported Cardiovascular: See HPI, Dizziness Respiratory: No symptoms reported Gastrointestinal: No symptoms reported Male Genitourinary: See HPI -: Yes All other systems reviewed and negative Physical Exam - Vital signs Vitals: Temp Pulse Resp BP Pulse Ox 99.1 F 50 L 18 85/62 L 98 10/29/19 18:10 10/29/19 18:10 10/29/19 18:10 10/29/19 18:10 10/29/19 18:10 Interpretation: Hypotensive, Bradycardic - Notes Notes: GENERAL: Alert, interacts well. No acute distress. HEAD: Normocephalic, atraumatic EYES: Pupils equal, round and reactive to light, extraocular movements intact. ENT: Oral mucosa moist, tongue midline. NECK: Full range of motion, supple, trachea midline. LUNGS: Clear to auscultation bilaterally, no wheezes, rales or rhonchi, no respiratory distress. HEART: Cardiac rate but regular rhythm, no murmurs, gallops, rubs. ABDOMEN: Soft, nontender, nondistended, bowel sounds present in all 4 quadrants. : Uncircumcised male with catheter in good position but there is a moderate amount of urine leaking out around the catheter, there is a small amount of purulent discharge from the urethral meatus. EXTREMITIES: Moves all 4 extremities spontaneously, no edema, radial and dorsalis pedis pulses 2/4 bilaterally. No cyanosis. NEUROLOGICAL: Alert and oriented x3, normal speech, biceps and patellar DTRs 2+ bilaterally. PSYCH: Normal mood, normal affect. SKIN: Warm, Dry, normal turgor, no rashes or lesions noted. Course - Re-evaluation Re-evalutation: 10/30/19 01:04 CBC shows mild anemia with a hemoglobin 12.8, CMP shows elevated calcium at 11.6 otherwise unremarkable, troponin normal, urinalysis does show moderate blood and large leukocyte Estrace, this will be sent for culture, likely colonization due to a Cortes catheter but I will treat with Macrobid just in case. Digoxin level is normal at 1.72. No evidence of digoxin toxicity. With the exception of initial blood pressure reading patient has actually been normotensive the entire time he is here, despite his bradycardia he is completely asymptomatic here in the emergency department and his symptoms have been unchanged for 4 to 5 months. We will attempt to ambulate this patient and as long as he is able to ambulate without difficulty we will refer him back to his creative technologist. 10/30/19 02:44 Patient was able to ambulate without difficulty. Cortes catheter was exchanged initially for a new one with more fluid in the balloon, patient still have leakage, patient's Cortes catheter has now been exchanged for progressively larger sizes until he has an 18 South Korean, patient tolerated the procedure well, patient will be observed for leakage for the next 45 minutes. If no leakage patient will be discharged home. 10/30/19 06:22 No further leakage. Patient discharged home. - Vital Signs Vital signs: Temp Pulse Resp BP Pulse Ox 98.1 F 45 L 16 135/60 H 100 10/30/19 05:56 10/30/19 05:56 10/30/19 05:56 10/30/19 05:56 10/30/19 05:56 - Laboratory Result Diagrams: 10/29/19 23:25 10/29/19 23:25 Laboratory results interpreted by me: 10/29/19 10/29/19 10/29/19 22:21 23:25 23:25 RBC 4.32 L Hgb 12.8 L Hct 37.6 L RDW 14.9 H Anion Gap 4 L Calcium 11.8 H Urine Protein 100 H Urine Blood MODERATE H Ur Leukocyte Esterase LARGE H - EKG Interpretation by Me Additional EKG results interpreted by me: 10/30/19 01:05 EKG shows atrial fibrillation, bradycardia at a rate of 42, no ST segment elevations or depressions, no T wave inversions, no interventricular conduction delay per my interpretation. Discharge - Discharge Clinical Impression: Chronic atrial fibrillation, Bradycardia with 41-50 beats per minute Catheter-associated urinary tract infection Qualifiers: Indwelling urinary catheter type: indwelling urethral catheter Encounter type: initial encounter Qualified Code(s): T83.511A - Infection and inflammatory reaction due to indwelling urethral catheter, initial encounter Condition: Stable Disposition: HOME, SELF-CARE Additional Instructions: Today your heart rate was found to be low, heart rate was between 38 and 50. Your blood pressure was not low despite your low heart rate. Your digoxin level was normal. You do not have any kidney failure. You did tell me that for several months you have felt somewhat woozy and lightheaded when you walk around. This may be caused by your low heart rate. I would like you to follow- up with Dr. Dacosta as an outpatient and to see your creative technologist to further evaluate why your heart rate is low. If at any point you develop chest pain, feel like you are going to pass out or have any new or concerning symptoms please return to the emergency department. You also have a urinary tract infection. It is fairly mild and likely associated with your catheter. I have started you on Macrobid, please take this as directed until it is gone. Prescriptions: Nitrofurantoin Monohyd/M-Cryst [Macrobid 100 mg Capsule] 100 mg PO BID #14 cap Referrals: ASHLEY DACOSTA MD [Primary Care Provider] - Follow up as needed
--- NOTE | 2019-10-30 02:08 | RADIOLOGY REPORT (SQ) ---
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 There is minimal basilar atelectasis or scarring. There is right apical scarring. Lungs are otherwise clear. Cardiac, hilar and mediastinal contours are within normal limits. Pulmonary vascularity is within normal limits. No acute bony abnormality is noted. IMPRESSION: No significant change and no acute disease.
[2019-10-30] MEDS ORDERED: LIDOCAINE 2% URO-JET 5 ML KIT MM ONE (02:25)
[2019-10-30 05:59] VITALS: BP 135/60
--- NOTE | 2019-10-30 22:09 | EKG REPORT ---
SEVERITY:- ABNORMAL ECG - ATRIAL FIBRILLATION : Confirmed by: Citlali Almonte MD 30-Oct-2019 22:08:26
== END 2019-10-30 05:56 | disposition home or self-care (01) ==
LOC: ER 17:53
DX: T83.511A Infection and inflammatory reaction due to indwelling urethral catheter, initial encounter (principal); N39.0 Urinary tract infection, site not specified; T83.031A Leakage of indwelling urethral catheter, initial encounter; Y84.6 Urinary catheterization as the cause of abnormal reaction of the patient, or of later complication, without mention of misadventure at the time of the procedure; I48.20 Chronic atrial fibrillation, unspecified; R00.1 Bradycardia, unspecified; R42 Dizziness and giddiness; R10.11 Right upper quadrant pain; W19.XXXA Unspecified fall, initial encounter; I11.0 Hypertensive heart disease with heart failure; I50.9 Heart failure, unspecified; D64.9 Anemia, unspecified; Z79.899 Other long term (current) drug therapy; Z91.013 Allergy to seafood; Z87.891 Personal history of nicotine dependence
CPT/HCPCS: 93005; 99284; 51702; 36415; 87086; 80162; 85025; 87070; 87088; 81001; 84484; 87186; 71046; 93010; A9270; 80048; J3490

== ENCOUNTER 2020-01-03 19:36 | Emergency (ER) | payer MEDICARE ==
--- NOTE | 2020-01-03 20:51 | ER Document Report ---
ED Medical Screen (RME) - General Chief Complaint: Medical Complaint Stated Complaint: lim catheter LEAKING Time Seen by Provider: 01/03/20 20:47 Primary Care Provider: ASHLEY DACOSTA MD [Primary Care Provider] - Follow up as needed Mode of Arrival: Ambulatory Information source: Patient Notes: 79-year-old male presents to ED for problems with his Lim catheter. He states for the last month or so he has been having frequent problems with his Lim catheter. He states that he is leaking around the catheter and it is blocked and it is causing pain in his penis and in his pelvic area. He states he needs a new catheter and he needs to know why he keeps on getting blocked up. Patient is alert oriented respirations regular nonlabored speaking in full sentences. I have greeted and performed a rapid initial assessment of this patient. A comprehensive ED assessment and evaluation of the patient, analysis of test results and completion of medical decision making process will be conducted by an additional ED providers. TRAVEL OUTSIDE OF THE [place] IN LAST 30 DAYS: No - Related Data Allergies/Adverse Reactions: Shellfish * Allergy (Intermediate, Verified 10/29/19 19:08) Facial swelling Past Medical History - Past Medical History Cardiac Medical History: Reports: Hx Atrial Fibrillation, Hx Congestive Heart Failure, Hx DVT, Hx Hypertension Denies: Hx Heart Attack Pulmonary Medical History: Reports: Hx Pneumonia Denies: Hx Asthma Neurological Medical History: Denies: Hx Cerebrovascular Accident, Hx Seizures Renal/ Medical History: Reports: Hx Benign Prostatic Hyperplasia. Denies: Hx Peritoneal Dialysis GI Medical History: Reports: Hx Gastroesophageal Reflux Disease. Denies: Hx Hepatitis, Hx Hiatal Hernia, Hx Ulcer Psychiatric Medical History: Denies: Hx Depression Infectious Medical History: Denies: Hx Hepatitis Past Surgical History: Reports: Hx Orthopedic Surgery. Denies: Hx Open Heart Surgery, Hx Pacemaker - Immunizations Hx Diphtheria, Pertussis, Tetanus Vaccination: No Physical Exam - Vital signs Vitals: Pulse Resp BP Pulse Ox 63 16 147/75 H 99 01/03/20 20:09 01/03/20 20:01/03/20 20:01/03/20 20:09 Course - Vital Signs Vital signs: Temp Pulse Resp BP Pulse Ox 63 16 147/75 H 99 01/03/20 20:09 01/03/20 20:09 01/03/20 20:09 01/03/20 20:09 Doctor's Discharge - Discharge Referrals: ASHLEY DACOSTA MD [Primary Care Provider] - Follow up as needed
[2020-01-03] MEDS ORDERED: LIDOCAINE 2% URO-JET 5 ML KIT MM ONE (23:40)
--- NOTE | 2020-01-03 23:40 | ER Document Report ---
ED GI/ - General Chief Complaint: Problem with Urinary Catheter Stated Complaint: lim catheter LEAKING Time Seen by Provider: 01/03/20 20:47 Primary Care Provider: ASHLEY DACOSTA MD [Primary Care Provider] - Follow up as needed Mode of Arrival: Ambulatory Notes: Patient is an 79 year old male that comes to the emergency department for chief complaint of problems with his Lim catheter. Patient has a history of BPH and is status post prostate surgery, he follows with [facility] urology reportedly, he states he has a follow-up appointment in 3 days. He states that he has had intermittent leaking but now his catheter started leaking a lot today. He states he has had this problem in the past and had to have his Lim size changed, he currently has a 16 Jordanian placed by home health. Patient denies bleeding, abdominal pain, vomiting, flank pain, or any other complaints. TRAVEL OUTSIDE OF THE [place] IN LAST 30 DAYS: No - Related Data Allergies/Adverse Reactions: Shellfish * Allergy (Intermediate, Verified 10/29/19 19:08) Facial swelling Past Medical History - General Information source: Patient - Social History Smoking Status: Former Smoker Frequency of alcohol use: None Drug Abuse: None Lives with: Family Family History: Hypertension - Past Medical History Cardiac Medical History: Reports: Hx Atrial Fibrillation, Hx Congestive Heart Failure, Hx DVT, Hx Hypertension Denies: Hx Heart Attack Pulmonary Medical History: Reports: Hx Pneumonia Denies: Hx Asthma Neurological Medical History: Denies: Hx Cerebrovascular Accident, Hx Seizures Renal/ Medical History: Reports: Hx Benign Prostatic Hyperplasia. Denies: Hx Peritoneal Dialysis GI Medical History: Reports: Hx Gastroesophageal Reflux Disease. Denies: Hx Hepatitis, Hx Hiatal Hernia, Hx Ulcer Psychiatric Medical History: Denies: Hx Depression Infectious Medical History: Denies: Hx Hepatitis Past Surgical History: Reports: Hx Orthopedic Surgery. Denies: Hx Open Heart Surgery, Hx Pacemaker - Immunizations Hx Diphtheria, Pertussis, Tetanus Vaccination: No Review of Systems - Review of Systems Constitutional: No symptoms reported EENT: No symptoms reported Cardiovascular: No symptoms reported Respiratory: No symptoms reported Gastrointestinal: No symptoms reported Genitourinary: See HPI Male Genitourinary: No symptoms reported Musculoskeletal: No symptoms reported Skin: No symptoms reported Hematologic/Lymphatic: No symptoms reported Neurological/Psychological: No symptoms reported Physical Exam - Vital signs Vitals: Pulse Resp BP Pulse Ox 63 16 147/75 H 99 01/03/20 20:09 01/03/20 20:09 01/03/20 20:09 01/03/20 20:09 - Notes Notes: GENERAL: Alert, interacts well. No acute distress. HEAD: Normocephalic, atraumatic. EYES: Pupils equal, round, and reactive to light. Extraocular movements intact. ENT: Oral mucosa moist, tongue midline. Oropharynx unremarkable. Airway patent. NECK: Full range of motion. Supple. Trachea midline. No lymphadenopathy. LUNGS: Clear to auscultation bilaterally, no wheezes, rales, or rhonchi. No respiratory distress. Non-tender chest wall. HEART: Regular rate and rhythm. No murmur ABDOMEN: Soft, non-tender. Non-distended. Bowel sounds present in all 4 quadrants. GENITOURINARY: Lim catheter in place with leg bag associated. There is noted to be urine in the patient's briefs. There is no swelling, tenderness, bleeding, or other concerning findings noted. EXTREMITIES: Moves all 4 extremities spontaneously. No edema, normal radial and dorsalis pedis pulses bilaterally. No cyanosis. BACK: no cervical, thoracic, lumbar midline tenderness. No saddle anesthesia, normal distal neurovascular exam. Moves all extremities in full range of motion. NEUROLOGICAL: Alert and oriented x3. Normal speech. Cranial nerves II through XII grossly intact. Strength 5/5 in all extremities. PSYCH: Normal affect, normal mood. SKIN: Warm, dry, normal turgor. No rashes or lesions noted. Course - Re-evaluation Re-evalutation: Patient with 16 Jordanian Lim catheter, urine noted to be in the patient's brief and very little was noted to be in the patient's leg bag. This was removed, 18 Jordanian was placed without any difficulty, afterwards we had good flow into the bag with some mixed in blood but no clots. Patient had no leaking. Patient with no complaints during his visit other than the leaking. Patient states he has a urology follow-up in 3 days. Patient stable and well-appearing at time of discharge. - Vital Signs Vital signs: Temp Pulse Resp BP Pulse Ox 98.0 F 61 16 140/72 H 99 01/04/20 01:40 01/04/20 01:40 01/04/20 01:40 01/04/20 01:40 01/04/20 01:40 Discharge - Discharge Clinical Impression: Lim catheter problem Qualifiers: Encounter type: initial encounter Qualified Code(s): T83.9XXA - Unspecified complication of genitourinary prosthetic device, implant and graft, initial encounter Condition: Stable Disposition: HOME, SELF-CARE Additional Instructions: Your smaller Lim catheter was replaced with an 18 Jordanian Lim catheter which is draining well without leaking. Follow close with your urologist for additional management. Return for any concerning symptoms including abdominal pain, vomiting, fever, or any other concerning or worsening symptoms. Referrals: ASHLEY DACOSTA MD [Primary Care Provider] - Follow up as needed
[2020-01-04 01:42] VITALS: BP 140/72
== END 2020-01-04 01:42 | disposition home or self-care (01) ==
LOC: ER 19:36
DX: T83.031A Leakage of indwelling urethral catheter, initial encounter (principal); Y84.6 Urinary catheterization as the cause of abnormal reaction of the patient, or of later complication, without mention of misadventure at the time of the procedure; I10 Essential (primary) hypertension; Z87.891 Personal history of nicotine dependence; Z98.890 Other specified postprocedural states; Z91.013 Allergy to seafood
CPT/HCPCS: 99283; 51702; A9270; J3490

== ENCOUNTER 2020-03-25 13:54 | Emergency (ER) | payer MEDICARE ==
[2020-03-25 15:15] VITALS: BP 143/61
--- NOTE | 2020-03-25 16:26 | ER Document Report ---
HPI - HPI Patient complains to provider of: Replace Cortes catheter Time Seen by Provider: 03/25/20 16:20 Onset: Yesterday Onset/Duration: Waxing and waning - Cortes clogged up last night needs replaced Quality of pain: No pain Context: 79-year-old male presented to ED for his Cortes catheter plugged up. He states is leaking around and he has to wear pads because his Cortes is leaking. He is a lert oriented respirations regular nonlabored speaking in full sentences. Would like his Cortes catheter changed until he follows up with urology. Constitutional: Negative for fever. HENT: Negative for sore throat. Eyes: Negative for visual changes. Cardiovascular: Negative for chest pain. Respiratory: Negative for shortness of breath. Gastrointestinal: Negative for abdominal pain, vomiting or diarrhea. Genitourinary: Catheter blocked up Musculoskeletal: Negative for back pain. Skin: Negative for rash. Neurological: Negative for headaches, weakness or numbness. 10 point ROS negative except as marked above and in HPI. VITAL SIGNS: Within normal limits. GENERAL: No acute distress, non-toxic appearance. HEAD: Normal with no signs of head trauma. EYES: PERRLA, EOMI, conjunctiva normal, no discharge. EARS: Hearing grossly intact. NOSE: Normal. THROAT: Oropharynx is normal. NECK: Normal range of motion, no tenderness, supple, no lymphadenopathy, No adenopathy, no JVD. CHEST: Clear breath sounds bilaterally. No wheezes, rales, or rhonchi. CARDIAC: Regular rate and rhythm. S1 and S2, without murmurs, gallops, or rubs. VASCULAR: No Edema. Peripheral pulses normal and equal in all extremities. ABDOMEN: Normal and soft with no tenderness, no masses or pulsatile masses. GASTROINTESTINAL: Bowel sounds normal GENITOURINARY: Need Cortes catheter replaced LYMPATHTIC: No lymphadenopathy noted. MUSCULOSKELETAL: Good range of motion of all major joints. Extremities without clubbing, cyanosis or edema. NEUROLOGICAL: Alert and oriented x 3. No focal sensory or strength deficits. Speech normal. Follows commands appropriately. PSYCHIATRIC: Normal Affect, judgement and mood. SKIN: Normal appearance with no rashes or lesions. Associated Symptoms: Other - Cortes catheter leaking Exacerbated by: Denies Relieved by: Denies Similar symptoms previously: Yes Recently seen / treated by doctor: Yes - ROS ROS below otherwise negative: Yes - CONSTITUTIONAL Constitutional: DENIES: Fever, Chills - EENT EENT: DENIES: Sore Throat, Ear Pain, Nasal Drainage-Clear, Nasal Drainage- Purulent, Congestion, Eye problems - NEURO Neurology: DENIES: Headache, Weakness, Vision blurred, Dizzinesss / Vertigo - CARDIOVASCULAR Cardiovascular: DENIES: Chest pain - RESPIRATORY Respiratory: DENIES: Trouble Breathing, Coughing - URINARY Urinary: DENIES: Dysuria, Urgency, Frequency - Needs Cortes replaced is leakin - REPRODUCTIVE Reproductive: DENIES: : - MUSCULOSKELETAL Musculoskeletal: DENIES: Extremity pain, Back Pain, Neck Pain, Swelling - DERM Skin Color: Normal Skin Problems: None Past Medical History - General Information source: Patient - Social History Smoking Status: Never Smoker Frequency of alcohol use: None Drug Abuse: None Family History: Hypertension Patient has suicidal ideation: No Patient has homicidal ideation: No - Past Medical History Cardiac Medical History: Reports: Hx Atrial Fibrillation, Hx Congestive Heart Failure, Hx DVT, Hx Hypertension Pulmonary Medical History: Reports: Hx Pneumonia Denies: Hx Asthma EENT Medical History: Reports: None Neurological Medical History: Reports: None Endocrine Medical History: Reports: None Renal/ Medical History: Reports: Hx Benign Prostatic Hyperplasia Malignancy Medical History: Reports None GI Medical History: Reports: Hx Gastroesophageal Reflux Disease Musculoskeletal Medical History: Reports Hx Arthritis, Reports Hx Musculoskeletal Deformity, Reports Hx Musculoskeletal Trauma Psychiatric Medical History: Reports: None Traumatic Medical History: Reports: None Infectious Medical History: Reports: None Past Surgical History: Reports: Hx Orthopedic Surgery - Immunizations Hx Diphtheria, Pertussis, Tetanus Vaccination: No Vertical Provider Document - INFECTION CONTROL TRAVEL OUTSIDE OF THE [place] IN LAST 30 DAYS: No Course - Vital Signs Vital signs: Temp Pulse Resp BP Pulse Ox 97.9 F 56 L 16 143/61 H 100 03/25/20 15:15 03/25/20 15:15 03/25/20 15:15 03/25/20 15:15 03/25/20 15:15 Discharge - Discharge Clinical Impression: Problem with Cortes catheter Qualifiers: Encounter type: initial encounter Qualified Code(s): T83.9XXA - Unspecified complication of genitourinary prosthetic device, implant and graft, initial encounter Condition: Stable Disposition: HOME, SELF-CARE Additional Instructions: Cortes Catheter Care Tube Position: Keep the catheter connected to the drainage tubing at all times. Avoid pulling on the catheter. Keep the drainage tube taped to the mid- thigh, on top of your leg (not underneath it). Be sure there are no kinks or loops in the tube. Keep the drainage bag below the bladder. When in bed, the drainage bag should hang below the abdomen but should not lie on the floor. The drainage bag has hooks at the top so it can be hung on a chair or bed. Daily Cleaning: Wash your hands with soap and water before and after caring for your catheter. Twice a day, clean yourself where the catheter goes into the urethra. Use a warm, soapy wash cloth to clean around the urethral opening and the first few inches of the catheter. Females should wash from front to back to decrease the risk of infection from fecal material. After washing with soap, rinse the area with water. Do not put powder around the catheter. Apply ointment only if instructed by your doctor or nurse. Follow up if you develop fever or chills, flank or abdominal pain, blood in the urine, or if urine is not draining into the catheter. FOLLOW-UP CARE: If you have been referred to a physician for follow-up care, call the physicians office for an appointment as you were instructed or within the next two days. If you experience worsening or a significant change in your symptoms, notify the physician immediately or return to the Emergency Department at any time for re-evaluation. Referrals: ASHLEY DACOSTA MD [Primary Care Provider] - Follow up as needed
== END 2020-03-25 17:55 | disposition home or self-care (01) ==
LOC: ER 13:54
DX: T83.9XXA Unspecified complication of genitourinary prosthetic device, implant and graft, initial encounter (principal); I11.0 Hypertensive heart disease with heart failure; I50.9 Heart failure, unspecified
CPT/HCPCS: 51702; 99283